=== PATIENT | female | born 2000 | race Caucasian/White ===

== ENCOUNTER 2023-12-06 19:36 | Inpatient (IN) ==
[2023-12-06 20:24] LABS: Basophils # (auto) 0.01 K/uL (0.00-0.20); Basophils % (auto) 0.1 %; Eosinophils # (auto) 0.05 K/uL (0.00-0.50); Eosinophils % (auto) 0.7 %; Hematocrit (blood only) 38.5 % (37.0-47.0); Hemoglobin 12.7 g/dl (12.0-16.0); Immature Granulocytes # (auto) 0.02 K/uL (0.01-0.20); Immature Granulocytes % (auto) 0.3 %; Lymphocytes # (auto) 0.29 K/uL (1.20-3.40); Lymphocytes % (auto) 3.8 %; Mean Corpuscular Hemoglobin 30.2 pg (25.0-34.0); Mean Corpuscular Volume 91.4 fL (80.0-100.0); Mean Platelet Volume 9.2 fL (9.4-12.4); Monocytes # (auto) 0.84 K/uL (0.11-0.59); Monocytes % (auto) 10.9 %; Neutrophils # (auto) 6.47 K/uL (1.40-6.50); Neutrophils % (auto) 84.2 %; Platelet Count 230 K/uL (130-400); RDW Coefficient of Variation 13.1 % (11.5-14.5); RDW Standard Deviation 43.4 fL (36.4-46.3); Red Blood Count 4.21 M/uL (4.20-5.40); White Blood Count 7.68 K/ul (4.8-10.8)
[2023-12-06 20:35] LABS: INR 1.1 (0.9-1.1); Partial Thromboplastin Ratio 1.1; Partial Thromboplastin Time 31 Seconds (21-31); Prothrombin Time 11.9 Seconds (9.0-12.0)
[2023-12-06] MEDS ORDERED: ACETAMINOPHEN 1,000 MG/100 ML VIAL IV STA (20:49)
[2023-12-06 20:52] LABS: Troponin I High Sensitivity < 2.3 pg/ml (0-14)
[2023-12-06 20:55] LABS: Albumin Level 4.5 gm/dl (3.4-5.0); Anion Gap 8 (3-11); Bilirubin,Total 0.3 mg/dl (0.2-1.0); Calcium 9.7 mg/dl (8.6-10.3); Carbon Dioxide 25 mmol/L (21-32); Chloride 102 mmol/L (98-107); Magnesium 1.9 mg/dl (1.7-2.4); Potassium 3.3 mmol/L (3.5-5.1); Sodium 135 mmol/L (136-145)
[2023-12-06 21:01] LABS: Alanine Aminotransferase 11 U/L (7-52); Albumin Globulin Ratio 1.4 (0.9-2); Alkaline Phosphatase 73 U/L (34-104); Aspartate Aminotransferase 15 U/L (13-39); Blood Urea Nitrogen 12 mg/dl (6-23); Creatinine Clr Calc Pharmacy 132.5 ml/min; Est GFR (African American) 129.3 ml/min; Est GFR (Non-African American) 111.6 ml/min; Globulin 3.2 gm/dl (2.5-4.0); Glucose 103 mg/dl (70-99(Fasting)); Total Protein 7.7 gm/dl (6.0-8.3)
[2023-12-06 21:13] LABS: Pregnancy Test, Serum Negative (Negative)
[2023-12-06] MEDS ORDERED: cefTRIAXone SODIUM 2,000 MG/50 ML BAG IV STA (21:15)
[2023-12-06] MEDS ORDERED: SODIUM CHLORIDE 0.9% 1,000 ML IV ONE (21:15)
--- NOTE | 2023-12-06 21:51 | Emergency Department Note ---
Impression & Plan Influenza A, Pyelonephritis ED Provider Note NAME: SULEMAN HILL AGE: 23 SEX: F : 2000 ARRIVES VIA: Walk-In INFORMANT: Patient, ED PROVIDER(S): Yolanda Ho MD CHIEF COMPLAINT: Heart racing HPI: This is a 23-year-old female with history of Haroldo-Danlos, POTS, duplicated ureters, presenting for tachycardia and fever. Patient states that she saw her cardiology yesterday for tachycardia and they increased her heart medication, midodrine. She then began having fevers today as well as headache, nausea and vomiting. Patient notes that in early October she had a stent placed in her right kidney as a result of hydronephrosis and recurrent UTIs. She seen on Saturday for the right flank pain that she currently still has and was told she has hydronephrosis as well as bladder spasms. She was given medication which helped her bladder spasm and now she does not have that pain, just right flank pain that is stable. ROS: See above HPI for pertinent positives & negatives. A total of 10 systems reviewed and were otherwise negative. PAST MEDICAL HISTORY: See Below PAST SURGICAL HISTORY: See Below FAMILY HISTORY: See Below SOCIAL HISTORY: See Below HOME MEDICATIONS: See Below ALLERGIES: See Below VITALS: See Below PHYSICAL EXAMINATION: General: Monitor shows due to pain Head: Normocephalic and atraumatic Eyes: Normal inspection, extraocular muscles intact Ear, nose, throat: Normal external exam Neck: Normal range of motion Respiratory: lungs clear to auscultation bilaterally Cardiovascular: Regular rate/rhythm, no murmur GI: Right CVA tenderness Extremities: nontender, moves all extremities Neuro: The patient awake and alert, appropriately conversive, no focal deficits, symmetric faces Skin: Warm, dry, and intact MEDICAL DECISION MAKING: This is a 23-year-old female history of Haroldo-Danlos, POTS, duplicated ureters, presenting for tachycardia and fevers. Patient slightly tachycardic with fever and stent. Will do ceftriaxone empirically as well as fluid resuscitation. Patient has been on prophylactic Keflex for multiple weeks for this stent. -Upon reevaluation. Heart rate is down from 140 down to 110s. -Patient had numerous CAT scans, 5+ in the past few months, she would prefer less radiation if possible. I do agree that at this time, patient has had stable right flank pain since previous CT at outside hospital, I am unable to locate the images unfortunately but she states it was read as hydronephrosis -Chest Xray independently interpreted by me showing no pneumothorax, focal opacity, or pleural effusions. -Otherwise patient's blood work reveals no leukocytosis or anemia, electrolytes are within normal limits (mild hypokalemia. Creatinine within normal limits. Nonelevated lactate. -Patient influenza A, likely planning her fevers and current symptoms -Unfortunate patient also has a urinalysis that is concerning for urinary tract infection -At this time is unclear whether patient's fevers from influenza or UTI/pyelonephritis. In about the precaution with patient's current stent, will admit to hospitalist for IV antibiotics and observation -Case discussed with on-call urologist, Dr. Gastelum, who agrees patient needs admission to rule out pyelonephritis/infection. Differential diagnosis: Sepsis, pyelonephritis, viral process ER treatment provided: See below Diagnostics interpreted by me: ECG: None Cardiac Monitoring: An order was placed for continuous cardiac monitoring. The monitor shows a rate of 117 with sinus tachycardia rhythm. Laboratory studies: As stated above and show below. Imaging studies: See below. Past Med/Surg History Medical History (Updated 12/07/23 @ 13:31 by Yolanda Ho MD) Bipolar disorder Recurrent urinary tract infection 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 POTS (postural orthostatic tachycardia syndrome) Surgical History (Updated 12/07/23 @ 10:04 by Lucius Gastelum MD) Status post insertion of iliac artery stent Status post cystoscopy with ureteral stent placement Social History Smoking Status: Never smoker Second Hand Exposure: No; Do You Dip or Chew Tobacco: No; Tobacco Cessation Education Requested by Patient: No Hx Alcohol Use: Yes Hx Substance Use: No Preferred Language: Chadian Communication Ability: Effective 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 Beliefs That Will Affect Care: None Current Living Situation: Other Current Living Situation Comment: sig other Other Information That Helps Us Care for You: No Feels Safe at Home: Yes Safety Concerns: Feels Safe At This Time Assistive Devices: None Allergies Allergies Allergy/AdvReac Type Severity Reaction Status Date / Time meperidine [From Demerol] Allergy Intermediate HIVES/RASH Verified 12/06/23 22:16 Home Meds Home Medications Medication Instructions Recorded Confirmed apixaban 5 mg tablet (Eliquis) 5 mg PO BID 08/18/23 12/06/23 aripiprazole 10 mg tablet (Abilify) 10 mg PO DAILY 08/18/23 12/06/23 aspirin 81 mg tablet,delayed 81 mg PO BID 08/18/23 12/06/23 release bupropion HCl 450 mg 24 hr tablet, 450 mg PO QAM 08/18/23 12/06/23 extended release guanfacine 2 mg tablet 3 mg PO QAM 08/18/23 12/06/23 ivabradine 5 mg tablet (Corlanor) 2.5 mg PO AMPM 08/18/23 12/06/23 midodrine 5 mg tablet 10 mg PO QAM 08/18/23 12/06/23 quetiapine 100 mg tablet (Seroquel) 100 mg PO HS 08/18/23 12/06/23 sertraline 100 mg tablet 100 mg PO HS 08/18/23 12/06/23 oxybutynin chloride 5 mg tablet 5 mg PO DIRECTED PRN Bladder 12/06/23 12/06/23 Spasms tamsulosin 0.4 mg capsule 0.4 mg PO HS 12/06/23 12/06/23 Previous Rx's Medication Instructions Recorded ondansetron 4 mg disintegrating 4 mg PO Q6H PRN nausea and 09/16/23 tablet vomiting #14 tabs Results & Data (ED) Vital Signs Vital Signs - 24 hr 12/06/23 19:40 12/06/23 22:20 12/06/23 22:22 Temperature 38.1 C H Temperature Source Oral Pulse Rate 140 H 116 H 117 H Pulse Rate from SpO2 Sensor Pulse Rhythm Regular Pulse Strength Normal Respiratory Rate 20 24 Respiratory Effort / Characteristics Non-Labored Spontaneous Respiratory Depth Normal Respiratory Pattern Regular Blood Pressure 133/75 Blood Pressure Mean 94 Blood Pressure Position Sitting Pulse Oximetry 97 Oxygen Delivery Method Room Air Sepsis Recent Fever Within 48 Hours Yes Sepsis New/Unexplained Change in Mental Status N/A Sepsis Action Taken by Nursing No Action Required 12/06/23 22:30 12/06/23 23:00 12/06/23 23:17 Temperature Temperature Source Pulse Rate 117 H 111 H Pulse Rate from SpO2 Sensor 119 H 112 H Pulse Rhythm Pulse Strength Respiratory Rate 21 22 Respiratory Effort / Characteristics Respiratory Depth Respiratory Pattern Blood Pressure 125/78 Blood Pressure Mean 93 Blood Pressure Position Pulse Oximetry 98 99 99 Oxygen Delivery Method Room Air Sepsis Recent Fever Within 48 Hours Sepsis New/Unexplained Change in Mental Status Sepsis Action Taken by Nursing 12/06/23 23:30 12/06/23 23:37 12/07/23 00:00 Temperature 39.2 C H Temperature Source Oral Pulse Rate 113 H 115 H Pulse Rate from SpO2 Sensor Pulse Rhythm Pulse Strength Respiratory Rate 21 19 Respiratory Effort / Characteristics Respiratory Depth Respiratory Pattern Blood Pressure Blood Pressure Mean Blood Pressure Position Pulse Oximetry 100 99 Oxygen Delivery Method Room Air Room Air Sepsis Recent Fever Within 48 Hours Sepsis New/Unexplained Change in Mental Status Sepsis Action Taken by Nursing 12/07/23 00:07 12/07/23 00:30 12/07/23 01:00 Temperature Temperature Source Pulse Rate 114 H 107 H 106 H Pulse Rate from SpO2 Sensor Pulse Rhythm Pulse Strength Respiratory Rate 18 17 18 Respiratory Effort / Characteristics Respiratory Depth Respiratory Pattern Blood Pressure 122/75 123/72 116/74 Blood Pressure Mean 90 89 88 Blood Pressure Position Pulse Oximetry 99 96 96 Oxygen Delivery Method Room Air Room Air Room Air Sepsis Recent Fever Within 48 Hours Sepsis New/Unexplained Change in Mental Status Sepsis Action Taken by Nursing 12/07/23 01:00 12/07/23 01:30 12/07/23 02:00 Temperature 37.0 C Temperature Source Oral Pulse Rate 112 H 104 H Pulse Rate from SpO2 Sensor Pulse Rhythm Pulse Strength Respiratory Rate 19 18 Respiratory Effort / Characteristics Respiratory Depth Respiratory Pattern Blood Pressure 97/53 L 90/62 L Blood Pressure Mean 67 71 Blood Pressure Position Pulse Oximetry 96 96 Oxygen Delivery Method Room Air Room Air Sepsis Recent Fever Within 48 Hours Sepsis New/Unexplained Change in Mental Status Sepsis Action Taken by Nursing Laboratory Data 12/06/23 19:55 12/07/23 08:23 Lab Results 12/06/23 12/06/23 12/06/23 Range/Units 19:40 19:44 19:55 WBC 7.68 (4.8-10.8) K/ul RBC 4.21 (4.20-5.40) M/uL Hgb 12.7 (12.0-16.0) g/dl Hct 38.5 (37.0-47.0) % MCV 91.4 (80.0-100.0) fL MCH 30.2 (25.0-34.0) pg MCHC 33.0 (32.0-36.0) g/dL RDW Std Deviation 43.4 (36.4-46.3) fL RDW Coeff of Cher 13.1 (11.5-14.5) % Plt Count 230 (130-400) K/uL MPV 9.2 L (9.4-12.4) fL Immature Gran % (Auto) 0.3 % Neut % (Auto) 84.2 % Lymph % (Auto) 3.8 % Barber % (Auto) 10.9 % Eos % (Auto) 0.7 % Baso % (Auto) 0.1 % Neut # (Auto) 6.47 (1.40-6.50) K/uL Lymph # (Auto) 0.29 L (1.20-3.40) K/uL Barber # (Auto) 0.84 H (0.11-0.59) K/uL Eos # (Auto) 0.05 (0.00-0.50) K/uL Baso # (Auto) 0.01 (0.00-0.20) K/uL Immature Gran # (Auto) 0.02 (0.01-0.20) K/uL PT 11.9 (9.0-12.0) Seconds INR 1.1 (0.9-1.1) APTT 31 (21-31) Seconds PTT Ratio 1.1 Sodium 135 L (136-145) mmol/L Potassium 3.3 L (3.5-5.1) mmol/L Chloride 102 (98-107) mmol/L Carbon Dioxide 25 (21-32) mmol/L Anion Gap 8 (3-11) BUN 12 (6-23) mg/dl Creatinine 0.75 (0.6-1.2) mg/dl Est Cr Clr Drug Dosing 132.5 ml/min Est GFR ( Amer) 129.3 ml/min Est GFR (Non-Af Amer) 111.6 ml/min BUN/Creatinine Ratio 16.0 (10-20) Glucose 103 H (70-99(Fasting)) mg/dl Lactate (0.4-2.0) mmol/L Calcium 9.7 (8.6-10.3) mg/dl Magnesium 1.9 (1.7-2.4) mg/dl Total Bilirubin 0.3 (0.2-1.0) mg/dl AST 15 (13-39) U/L ALT 11 (7-52) U/L Alkaline Phosphatase 73 (34-104) U/L Troponin I High Sens < 2.3 (0-14) pg/ml Total Protein 7.7 (6.0-8.3) gm/dl Albumin 4.5 (3.4-5.0) gm/dl Globulin 3.2 (2.5-4.0) gm/dl Albumin/Globulin Ratio 1.4 (0.9-2) Procalcitonin 0.05 (0-0.5) ng/ml HCG, Qual Negative (Negative) Urine Color Urine Appearance (Clear) Urine pH (4.5-7.5) Ur Specific [place] (1.000-1.030) Urine Protein (Negative) Urine Glucose (UA) (Negative) Urine Ketones (Negative) Urine Blood (Negative) Urine Nitrite (Negative) Urine Bilirubin (Negative) Urine Urobilinogen (Negative) Ur Leukocyte Esterase (Negative) Urine RBC (0-4) /hpf Urine WBC (0-5) /hpf Ur Epithelial Cells (0-5) /lpf Urine Bacteria (Negative) Hyaline Casts (0-5) /lpf Nasal Influ A H1 2008 PCR DETECTED A* (NotDetected) Adenovirus (PCR) Not Detected (NotDetected) B. pertussis DNA (PCR) Not Detected (NotDetected) B.parapertussis DNA PCR Not Detected (NotDetected) C. pneumoniae DNA (PCR) Not Detected (NotDetected) Coronavirus OC43 (PCR) Not Detected (NotDetected) Coronavirus HKU1 (PCR) Not Detected (NotDetected) Coronavirus 229E (PCR) Not Detected (NotDetected) SARS-CoV-2 (PCR) Not Detected (NotDetected) Coronavirus NL63 (PCR) Not Detected (NotDetected) Human Metapneumovir PCR Not Detected (NotDetected) Influenza Type B (PCR) Not Detected (NotDetected) M. pneumoniae (PCR) Not Detected (NotDetected) Parainfluenza 1 (PCR) Not Detected (NotDetected) Parainfluenza 2 (PCR) Not Detected (NotDetected) Parainfluenza 3 (PCR) Not Detected (NotDetected) Parainfluenza 4 (PCR) Not Detected (NotDetected) RSV (PCR) Not Detected (NotDetected) Entero/Rhino (PCR) Not Detected (NotDetected) 12/06/23 12/06/23 Range/Units 21:30 21:38 WBC (4.8-10.8) K/ul RBC (4.20-5.40) M/uL Hgb (12.0-16.0) g/dl Hct (37.0-47.0) % MCV (80.0-100.0) fL MCH (25.0-34.0) pg MCHC (32.0-36.0) g/dL RDW Std Deviation (36.4-46.3) fL RDW Coeff of Cher (11.5-14.5) % Plt Count (130-400) K/uL MPV (9.4-12.4) fL Immature Gran % (Auto) % Neut % (Auto) % Lymph % (Auto) % Barber % (Auto) % Eos % (Auto) % Baso % (Auto) % Neut # (Auto) (1.40-6.50) K/uL Lymph # (Auto) (1.20-3.40) K/uL [place] # (Auto) (0.11-0.59) K/uL Eos # (Auto) (0.00-0.50) K/uL Baso # (Auto) (0.00-0.20) K/uL Immature Gran # (Auto) (0.01-0.20) K/uL PT (9.0-12.0) Seconds INR (0.9-1.1) APTT (21-31) Seconds PTT Ratio Sodium (136-145) mmol/L Potassium (3.5-5.1) mmol/L Chloride (98-107) mmol/L Carbon Dioxide (21-32) mmol/L Anion Gap (3-11) BUN (6-23) mg/dl Creatinine (0.6-1.2) mg/dl Est Cr Clr Drug Dosing ml/min Est GFR ( Amer) ml/min Est GFR (Non-Af Amer) ml/min BUN/Creatinine Ratio (10-20) Glucose (70-99(Fasting)) mg/dl Lactate 1.1 (0.4-2.0) mmol/L Calcium (8.6-10.3) mg/dl Magnesium (1.7-2.4) mg/dl Total Bilirubin (0.2-1.0) mg/dl AST (13-39) U/L ALT (7-52) U/L Alkaline Phosphatase (34-104) U/L Troponin I High Sens (0-14) pg/ml Total Protein (6.0-8.3) gm/dl Albumin (3.4-5.0) gm/dl Globulin (2.5-4.0) gm/dl Albumin/Globulin Ratio (0.9-2) Procalcitonin (0-0.5) ng/ml HCG, Qual (Negative) Urine Color [place] Urine Appearance Turbid A (Clear) Urine pH 6.5 (4.5-7.5) Ur Specific [place] 1.026 (1.000-1.030) Urine Protein 2+ H (Negative) Urine Glucose (UA) Negative (Negative) Urine Ketones 1+ H (Negative) Urine Blood 3+ H (Negative) Urine Nitrite Negative (Negative) Urine Bilirubin 1+ H (Negative) Urine Urobilinogen Negative (Negative) Ur Leukocyte Esterase 1+ H (Negative) Urine RBC >30 H (0-4) /hpf Urine WBC 10-30 H (0-5) /hpf Ur Epithelial Cells 0-5 (0-5) /lpf Urine Bacteria 1+ H (Negative) Hyaline Casts 0-5 (0-5) /lpf Nasal Influ A H1 2009 PCR (NotDetected) Adenovirus (PCR) (NotDetected) B. pertussis DNA (PCR) (NotDetected) B.parapertussis DNA PCR (NotDetected) C. pneumoniae DNA (PCR) (NotDetected) Coronavirus OC43 (PCR) (NotDetected) Coronavirus HKU1 (PCR) (NotDetected) Coronavirus 229E (PCR) (NotDetected) SARS-CoV-2 (PCR) (NotDetected) Coronavirus NL63 (PCR) (NotDetected) Human Metapneumovir PCR (NotDetected) Influenza Type B (PCR) (NotDetected) M. pneumoniae (PCR) (NotDetected) Parainfluenza 1 (PCR) (NotDetected) Parainfluenza 2 (PCR) (NotDetected) Parainfluenza 3 (PCR) (NotDetected) Parainfluenza 4 (PCR) (NotDetected) RSV (PCR) (NotDetected) Entero/Rhino (PCR) (NotDetected) Administered Medications Acetaminophen (Acetaminophen 325 Mg Tab) 650 mg PO Q4H PRN PRN Reason: Pain or Fever Stop: 01/06/24 05:29 Last Admin: 12/07/23 12:38 Dose: 650 mg Documented By: Admin: 12/07/23 07:43 Dose: 650 mg Documented By: OSVALDO Apixaban (Apixaban 5 Mg Tablet) 5 mg PO BID [facility] Stop: 01/06/24 08:59 Last Admin: 12/07/23 08:43 Dose: 5 mg Documented By: OSVALDO Aripiprazole (Aripiprazole 10 Mg Tab) 10 mg PO DAILY [facility] Stop: 01/06/24 08:59 Last Admin: 12/07/23 08:42 Dose: 10 mg Documented By: OSVALDO Aspirin (Aspirin 81 Mg Ectab) 81 mg PO BID [facility] Stop: 01/06/24 08:59 Last Admin: 12/07/23 08:43 Dose: 81 mg Documented By: OSVALDO Bupropion HCl (Bupropion Xl 150 Mg Tabcr) [facility] [place]: 01/06/24 08:59 Last Admin: 12/07/23 08:42 Dose: 450 mg Documented By: OSVALDO Guanfacine HCl (Guanfacine Hcl 1 Mg Tab) 3 mg PO QAM [facility] Stop: 01/06/24 08:59 Last Admin: 12/07/23 08:41 Dose: 3 mg Documented By: OSVALDO Sodium Chloride (Nss) 1,000 mls @ 125 mls/hr IV .Q8H [facility] Stop: 01/06/24 11:44 Last Admin: 12/07/23 12:41 Dose: 125 mls/hr Documented By: OSVALDO Midodrine (Midodrine Hcl 10 Mg Tab) 10 mg PO QAM [facility] Stop: 01/06/24 08:59 Last Admin: 12/07/23 08:42 Dose: 10 mg Documented By: OSVALDO Miscellaneous (Order Awaiting Action: Ivabradine [Corlanor] 5 Mg Tablet) 1 each N/A QS [facility] Stop: 01/06/24 07:59 Last Admin: 12/07/23 10:37 Dose: Not Given Documented By: OSVALDO Oseltamivir Phosphate (Oseltamivir Phosphate 75 Mg Cap) 75 mg PO BID [facility] Stop: 12/11/23 09:01 Last Admin: 12/07/23 12:38 Dose: 75 mg Documented By: OSVALDO Oxybutynin Chloride (Oxybutynin Chloride 5 Mg Tab) 5 mg PO DAILY PRN PRN Reason: Bladder Spasms Stop: 01/06/24 05:29 Last Admin: 12/07/23 12:35 Dose: 5 mg Documented By: Admin: 12/07/23 08:42 Dose: 5 mg Documented By: OSVALDO Discontinued Medications Acetaminophen (Acetaminophen 500 Mg Tab) 1,000 mg PO NOW STA Stop: 12/06/23 22:42 Last Admin: 12/06/23 23:26 Dose: 1,000 mg Documented By: WAQAR Sodium Chloride (Nss) 1,000 mls @ 999 mls/hr IV .Q1H1M ONE Stop: 12/06/23 22:15 Last Infusion: 12/06/23 23:22 Dose: Infused Documented By: Admin: 12/06/23 22:28 Dose: 999 mls/hr Documented By: STU Ceftriaxone Sodium (Rocephin) 2,000 mg in 50 mls @ 100 mls/hr IV NOW STA Stop: 12/06/23 21:44 Last Infusion: 12/06/23 23:04 Dose: Infused Documented By: Admin: 12/06/23 22:28 Dose: 100 mls/hr Documented By: STU Potassium Chloride/Sodium Chloride (Normal Saline W/20 Meq Kcl) 20 meq in 1,000 mls @ 150 mls/hr IV .Q6H40M [facility]; Protocol Stop: 12/07/23 08:54 Last Infusion: 12/07/23 10:46 Dose: Infused Documented By: Admin: 12/07/23 03:24 Dose: 150 mls/hr Documented By: WAQAR Magnesium Sulfate/Dextrose (Magnesium Sulfate / D5w) 1 gm in 100 mls @ 50 mls/hr IV ONE ONE Stop: 12/07/23 04:59 Last Infusion: 12/07/23 05:41 Dose: Infused Documented By: Admin: 12/07/23 03:24 Dose: 50 mls/hr Documented By: WAQAR Sodium Chloride (Nss) 500 mls @ 999 mls/hr IV .Q31M ONE Stop: 12/07/23 08:19 Last Infusion: 12/07/23 10:47 Dose: Infused Documented By: Admin: 12/07/23 08:39 Dose: 999 mls/hr Documented By: OSVALDO Ondansetron HCl (Ondansetron Inj 2 Mg/Ml 2 Ml Vial) 4 mg IV NOW STA Stop: 12/07/23 00:19 Last Admin: 12/07/23 00:21 Dose: 4 mg Documented By: WAQAR Oseltamivir Phosphate (Oseltamivir Phosphate 75 Mg Cap) 75 mg PO NOW STA; Protocol Stop: 12/07/23 02:27 Last Admin: 12/07/23 03:24 Dose: 75 mg Documented By: WAQAR Imaging Data Radiologist's Impression: Chest X-Ray 12/06/23 19:44 XR chest 1V not portable CLINICAL HISTORY: Sepsis TECHNIQUE: Single frontal radiograph of the chest was obtained. Comparison: None available at the time of this dictation. FINDINGS: No lines and tubes are seen. The cardiomediastinal silhouette is normal. The lungs are clear. No evidence of pleural effusion or pneumothorax. IMPRESSION: No acute abnormalities and in particular no radiographic evidence of pneumonia. ACT 112: Negative or not required by law. Electronically signed by: Ricci Langley M.D. 12/07/2023 9:13 AM Discharge Plan Visit Data Chief Complaint: Tachycardia Stated Complaint: HEADACHE, VOMITING, FEVER 103, TACHYCARDIA ED Provider: Yolanda Ho Discharge Problem: Influenza A, Pyelonephritis Patient Disposition: Home - Self-Care Discharge Instructions Interventions: ED Discharge Assessment Last Done: 12/07/23 05:30
[2023-12-06 21:55] LABS: Adenovirus PCR Not Detected (NotDetected); Bordetella parapertussis PCR Not Detected (NotDetected); Bordetella pertussis PCR Not Detected (NotDetected); Chlamydia pneumoniae PCR Not Detected (NotDetected); Coronavirus 229E PCR Not Detected (NotDetected); Coronavirus CoV-2 (COVID19)PCR Not Detected (NotDetected); Coronavirus HKU1 PCR Not Detected (NotDetected); Coronavirus NL63 PCR Not Detected (NotDetected); Coronavirus OC43PCR Not Detected (NotDetected); Human Metapneumovirus PCR Not Detected (NotDetected); Influenza B PCR Not Detected (NotDetected); Mycoplasma pneumoniae PCR Not Detected (NotDetected); Parainfluenza Virus 1 PCR Not Detected (NotDetected); Parainfluenza Virus 2 PCR Not Detected (NotDetected); Parainfluenza Virus 3 PCR Not Detected (NotDetected); Parainfluenza Virus 4 PCR Not Detected (NotDetected); Respiratory Syncytial VirusPCR Not Detected (NotDetected); Rhinovirus/Enterovirus PCR Not Detected (NotDetected)
[2023-12-06 22:26] LABS: Influenza A (H1 2009) PCR DETECTED (NotDetected)
[2023-12-06 22:28] LABS: Appearance Urine Turbid (Clear); Blood Urine 3+ (Negative); Color Urine Orange; Glucose Urine UA Negative (Negative); Ketones Urine 1+ (Negative); Leukocyte Esterase Urine 1+ (Negative); Nitrite Urine Negative (Negative); Protein Urine 2+ (Negative); Specific Gravity Urine 1.026 (1.000-1.030); Urobilinogen Urine Negative (Negative); pH Urine 6.5 (4.5-7.5)
[2023-12-06 22:29] LABS: Bilirubin Urine 1+ (Negative)
[2023-12-06 22:41] LABS: Bacteria Urine 1+ (Negative); Epithelial Cell Urine 0-5 /lpf (0-5); Hyaline Casts Urine 0-5 /lpf (0-5); RBC Urine >30 /hpf (0-4)
[2023-12-06] MEDS ORDERED: ACETAMINOPHEN 500 MG TAB PO STA (22:41)
[2023-12-07] MEDS ORDERED: ONDANSETRON INJ 2 MG/ML 2 ML VIAL IV STA (00:18)
--- OUTSIDE RECORDS SUMMARY | 2023-12-07 00:28 | External Medical Summary | Summary of Care ---
Author Name Unknown Organization [facility] Address [address] [place] [address] Phone [phone] Care Team Providers Care Document Manager Name Role Phone Karie Valdovinos MD Primary Care Provider Reason for Visit * Reason Onset Date Comments Sore Throat Sore Throat 12/06/2023 Encounter Details Date Type Department Care Team (Latest Contact Info) Description 12/06/2023 3:00 PM EST Convenient Care Visit [facility] [address] [place] [address] Charles Laughlin PA-C [address] [place] [address] Acute sore throat* Allergies Active Allergy Reactions Criticality Noted Date Comments Meperidine Hives,Rash High 07/12/2023 documented as of this encounter (statuses as of 12/06/2023) Medications Medication Sig Dispensed Refills Start Date End Date Status Eliquis 5 MG Oral Tablet Take 1 Tablet by mouth in the morning and 1 Tablet before bedtime. 0 07/05/2023 Active Ondansetron 4 MG Oral Tablet Disintegrating (Zofran) Place 1 Tablet on tongue every 8 hours as needed. 0 05/24/2023 Active Cephalexin 250 MG Oral Capsule (Keflex) Take 1 Capsule by mouth in the morning. For UTI suppression. 30 Capsule 2 08/09/2023 Active Aspirin 81 MG Oral Tablet Delayed Release (Aspirin 81) Take 1 Tablet by mouth in the morning and 1 Tablet before bedtime. 0 Active Midodrine HCl 5 MG Oral Tablet (Proamatine) Take 1 Tablet by mouth in the morning. 90 Tablet 3 09/20/2023 Active ARIPiprazole 10 MG Oral Tablet (Abilify) Take 1 Tablet by mouth in the morning. 30 Tablet 2 11/13/2023 Active buPROPion HCl ER (XL) 300 MG Oral Tablet Extended Release 24 Hour (Wellbutrin XL) Take 1 Tablet by mouth in the morning. 30 Tablet 2 11/13/2023 Active buPROPion HCl ER (XL) 150 MG Oral Tablet Extended Release 24 Hour (Wellbutrin XL) Take 1 Tablet by mouth in the morning. 30 Tablet 2 11/13/2023 Active QUEtiapine Fumarate 100 MG Oral Tablet (SEROquel) Quetiapine (seroquel) 100mg tablet, take one tablet every night. 30 Tablet 2 11/13/2023 Active QUEtiapine Fumarate 50 MG Oral Tablet (SEROquel) TAKE 1 TABLET BY MOUTH AT BEDTIME NEEDED FOR SLEEP OR MOOD WITH 100 MG TABLET 30 Tablet 2 11/13/2023 Active Sertraline HCl 25 MG Oral Tablet (Zoloft) Take 1 Tablet by mouth at bedtime. 30 Tablet 2 11/13/2023 Active guanFACINE HCl ER 3 MG Oral Tablet Extended Release 24 Hour Take 1 Tablet by mouth every morning. 30 Tablet 2 11/13/2023 Active Tamsulosin HCl 0.4 MG Oral Capsule (Flomax) Take 1 Capsule by mouth in the morning. 0 Active oxyBUTYnin Chloride 5 MG Oral Tablet (Ditropan) Take 1 Tablet by mouth as needed. 0 12/03/2023 Active Corlanor 5 MG Oral Tablet Take 0.5 Tablets by mouth in the morning and 0.5 Tablets before bedtime. 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 Bipolar 1 disorder 07/16/2023 JILL (generalized anxiety disorder) 07/16/2023 Hydronephrosis 07/12/2023 Recurrent UTI (urinary tract infection) 07/12/20 POTS (postural orthostatic tachycardia syndrome) 07/12/2023 documented as of this encounter (statuses as of 12/06/2023) Immunizations Name Administration Dates Next Due Seasonal Influenza Virus Vac cine, Unspecified Formulation 08/30/2023 documented as of this encounter Social History Tobacco Use Types Packs/Day Years Used Date Smoking Tobacco: Never Smokeless Tobacco: Never Tobacco Cessation:Counseling Given: Not Answered Alcohol Use Standard Drinks/Week Comments Yes 0 (1 standard drink = 0.6 oz pur e alcohol) On occasion Hunger Vital Sign Answer Date Recorded Within the past 12 months, y ou worried that your food would run out before you got the money to buy more. Never true 07/08/20 23 Within the past 12 months, t he food you bought just didn't last and you didn't have money to get more. Never true 07/08/2023 Sex and Gender Information Value Date Recorded Sex Assigned at Female 07/08/2023 6:24 PM EDT Gender Identity Female 07/08/2023 6:24 PM EDT Sexual Orientation Lesbian 07/08/2023 6: 24 PM EDT Job Start Date Occupation Industry Not on file Not on file Not on file documented as of this encounter Last Filed Vital Signs Vital Sign Reading Time Taken Comments Blood Pressure 110/70 12/06/2023 3:20 PM EST Pulse 125 12/06/2023 3:20 PM EST Temperature 38 C (100.4 F) 12/06/2023 3:20 PM EST Respiratory Rate 16 12/06/2023 3:20 PM EST Oxygen Saturation 99% 12/06/2023 3:20 PM EST Inhaled Oxygen Concentration - - Weight 87.6 kg (193 lb 3.2 oz) 12/06/2023 3:20 P M EST Height - - Body Mass Index 29.38 11/13/2023 8:53 AM EST documented in this encounter Patient Instructions * Patient Instructions* Charles Laughlin PA-C - 12/06/2023 3:41 PM EST Can use tylenol/ibuprofen as needed for pain. Over the counter (OCT) lozenges and chloraseptic throat sprays can be helpful as well. If diabetes or elevated blood sugar is not a problem, can use honey as well to help sooth the throat. Hot tea and warm beverages can be very soothing on the throat. Warm salt water gargles as needed several times a day. Drink plenty of fluids and get plenty of rest. If your sore throat is accompanied by post-nasal drip, consider nasal sprays and/or OTC non-drowsy antihistamines like Claritin, Zyrtec, or Allegry as well and consider using a cool mist vaporizer. If you had a strep test and your rapid test was negative, we will contact you if your PCR ("the send out") was positive and send antibiotics. If you do not hear from us, you can assume that your PCR was also negative, confirming your rapid test. Return or follow-up with PCP if no improvement or worsening symptoms over the next week. documented in this encounter Progress Notes * Charles Laughlin PA-C - 12/06/2023 3:34 PM EST Nursing Notes: Heena Nixon LPN 12/06/23 1524 Signed 23 yo female presents with headache, sore throat, fever x 2 days. Took tylenol Nolvia Abdullahi is a 23 year old female who presents with sore throat symptoms. Patient was accompanied by Self. HPI: Severity of Symptoms: Moderate Modifying Factors (what was done since onset of Symptoms): tylenol Timing (How often does it occur): constant Quality (Feels Like): hurts to swallow Other associated Signs and Symptoms: st, young, fever, malaise, fatigue. Denies sob, wheezing, cp, palp, n/v/d/c, sinus, cough. ROS: See HPI HISTORY: No past medical history on file. No past surgical history on file. Social History Tobacco Use Smoking status: Never Smokeless tobacco: Never Substance Use Topics Alcohol use: Yes Comment: On occasion Vaping/E-Cigarette Use Vaping/E-Cigarette Use Never User Vaping/E-Cigarette Substances Nicotine No Other No Flavoring No THC No Cannabidiol (CBD) No Vaping/E-Cigarette Devices Disposable No Pre-filled or Refillable Cartridge No Refillable Tank No Pre-filled Pod No Current Outpatient Medications Medication Sig Dispense Refill Eliquis 5 MG Oral Tablet Take 1 Tablet by mouth in the morning and 1 Tablet before bedtime. Ondansetron 4 MG Oral Tablet Disintegrating (Zofran) Place 1 Tablet on tongue every 8 hours as needed. Cephalexin 250 MG Oral Capsule (Keflex) Take 1 Capsule by mouth in the morning. For UTI suppression. 30 Capsule 2 Aspirin 81 MG Oral Tablet Delayed Release (Aspirin 81) Take 1 Tablet by mouth in the morning and 1 Tablet before bedtime. Midodrine HCl 5 MG Oral Tablet (Proamatine) Take 1 Tablet by mouth in the morning. 90 Tablet 3 ARIPiprazole 10 MG Oral Tablet (Abilify) Take 1 Tablet by mouth in the morning. 30 Tablet 2 buPROPion HCl ER (XL) 300 MG Oral Tablet Extended Release 24 Hour (Wellbutrin XL) Take 1 Tablet by mouth in the morning. 30 Tablet 2 buPROPion HCl ER (XL) 150 MG Oral Tablet Extended Release 24 Hour (Wellbutrin XL) Take 1 Tablet by mouth in the morning. 30 Tablet 2 QUEtiapine Fumarate 100 MG Oral Tablet (SEROquel) Quetiapine (seroquel) 100mg tablet, take one tablet every night. 30 Tablet 2 QUEtiapine Fumarate 50 MG Oral Tablet (SEROquel) TAKE 1 TABLET BY MOUTH AT BEDTIME NEEDED FOR SLEEP OR MOOD WITH 100 MG TABLET 30 Tablet 2 Sertraline HCl 25 MG Oral Tablet (Zoloft) Take 1 Tablet by mouth at bedtime. 30 Tablet 2 guanFACINE HCl ER 3 MG Oral Tablet Extended Release 24 Hour Take 1 Tablet by mouth every morning. 30 Tablet 2 Tamsulosin HCl 0.4 MG Oral Capsule (Flomax) Take 1 Capsule by mouth in the morning. oxyBUTYnin Chloride 5 MG Oral Tablet (Ditropan) Take 1 Tablet by mouth as needed. Corlanor 5 MG Oral Tablet Take 0.5 Tablets by mouth in the morning and 0.5 Tablets before bedtime. 90 Tablet 3 No current facility-administered medications for this visit. Review of patient's allergies indicates: Allergen Reactions Demerol Hcl [Meperidine] Hives and Rash No family history on file. OBJECTIVE: BP 110/70 | Pulse 125 | Temp 38 C (100.4 F) (Tympanic) | Resp 16 | Wt 87.6 kg (193 lb 3.2 oz) |SpO2 99% | No | BMI 29.38 kg/m | BSA 2.05 m Wt Readings from Last 1 Encounters: 12/06/23 87.6 kg (193 lb 3.2 oz) General appearance: awake, alert, no apparent distress HEENT: perrl and eomi tms - clear, normal light reflex, no erythema + red and irritated pharynx No sinus tenderness or facial pain to percussion No turbinate engorgement or discharge Neck: normal, supple, no adenopathy Respiratory: clear to auscultation, no rhonchi, no wheezes, and no crackles Heart: regular rhythm, no murmurs , no rubs, no gallops, and +tachycardia Skin: skin color, texture, turgor are normal, no rashes or significant lesions Results for orders placed or performed in visit on 11/13/23 COMPREHENSIVE METABOLIC PANEL Result Value Ref Range BUN 16 6 - 20 mg/dL Creatinine 0.8 0.5 - 1.0 mg/dL Estimated Glomerular Filtration Rate >90 >=60 mL/min Sodium 140 135 - 146 mmol/L Potassium 4.2 3.5 - 5.1 mmol/L Chloride 104 98 - 107 mmol/L CO2 27 22 - 32 mmol/L Anion Gap 9 7 - 15 mmol/L Glucose 94 70 - 120 mg/dL Albumin 4.6 3.8 - 5.0 g/dL AST 16 10 - 35 U/L Alkaline Phosphatase 77 35 - 130 U/L Bilirubin, Total 0.3 <=1.2 mg/dL Calcium 9.7 8.4 - 10.2 mg/dL Protein 7.1 6.0 - 8.3 g/dL ALT 14 10 - 35 U/L TSH WITH FREE T4 IF INDICATED Result Value Ref Range TSH 2.46 0.27 - 4.20 uIU/mL TRYPTASE Result Value Ref Range Tryptase 4.6 <11.0 mcg/L Patient Instructions Can use tylenol/ibuprofen as needed for pain. Over the counter (OCT) lozenges and chloraseptic throat sprays can be helpful as well. If diabetes or elevated blood sugar is not a problem, can use honey as well to help sooth the throat. Hot tea and warm beverages can be very soothing on the throat. Warm salt water gargles as needed several times a day. Drink plenty of fluids and get plenty of rest. If your sore throat is accompanied by post-nasal drip, consider nasal sprays and/or OTC non-drowsy antihistamines like Claritin, Zyrtec, or Allegry as well and consider using a cool mist vaporizer. If you had a strep test and your rapid test was negative, we will contact you if your PCR ("the send out") was positive and send antibiotics. If you do not hear from us, you can assume that your PCR was also negative, confirming your rapid test. Return or follow-up with PCP if no improvement or worsening symptoms over the next week. Assessment: Acute sore throat (Primary) - STREP A SCREEN, POINT OF CARE (ENTER/EDIT) - GROUP A STREP PCR - INFLUENZA A/B RSV SARS-COV2,PCR Rapid strep neg Likely viral Will follow swabs Patient goals for plan of care were discussed Charles Laughlin PA-C [facility] [address] [facility] [address] documented in this encounter Nursing Notes * Heena Nixon LPN - 12/06/2023 3:21 PM EST 23 yo female presents with headache, sore throat, fever x 2 days. Took tylenol documented in this encounter Plan of Treatment Upcoming Encounters Date Type Department Care Team (Late st Contact Info) Description 01/03/2024 7:15 AM EST Cardiac Studies Cardiac Studies, [facility] [address] [facility] [place] [address] 01/15/2024 2:30 PM EST Telemedicine Psychiatry, [place] [address] [place] [address] Olena Padilla CRNP [address] [place] [address] 01/17/2024 8:30 AM EST Office Visit Allergy/Immunology [facility] [address] [place] [address] Terrie Julio PA-C [address] [facility] [address] [place], [place] [address] 05/12/2024 8:00 AM EDT Office Visit [facility] [address] [facility] [place] [address] Karie Valdovinos MD [address] [facility] [place] [address] 07/14/2024 1:00 PM EDT Office Visit [facility] [address] [facility] [place] [address] Karie Valdovinos MD [address] [facility] [address] [place], [place] [address] Pending Results Name Type Priority Associated Diagnoses Date /Time GROUP A STREP PCR Lab STAT Acute sore throat 12/06/2023 4:34 PM EST INFLUENZA A/B RSV SARS-COV2,PCR Lab STAT Acute sore throat 12/06/2023 3:50 PM EST Scheduled Orders Name Type Priority Associated Diagnoses Orde r Schedule STREP A SCREEN, POINT OF CARE (ENTER/EDIT) Point of Care Testing Routine Acute sore throat Ordered: 12/06/2023 Health Maintenance Due Date Last Done Comments Hepatitis B (1 of 3 - 3-dose series) 1999 GARDASIL-HPV IMMUNIZATION SE ANA (1 - 2-dose series) 2010 Depression Screening 2011 Gonorrhea / Chlamydia Screen 2014 HIV Screening 2014 Hepatitis C Screening 2017 DTaP,Tdap,and Td Vaccines (1 - Tdap) 2018 Pap Smear 02/29/2020 COVID-19 Vaccine Completed 08/30/2023 Influenza Vaccine (FLU shot) Completed 08/30/2023 MENINGOCOCCAL (MENACTRA/MENVEO) Aged Out No longer eligible based on patient's age to complete this topic Pneumococcal Vaccine: Pediat rics (0 to 5 Years) and At-Risk Patients (6 to 64 Years) Aged Out No longer eligi ble based on patient's age to complete this topic documented as of this encounter Medical Devices Not on filedocumented as of this encounter Visit Diagnoses Diagnosis Acute sore throat- Primary documented in this encounter Care Teams Document Manager Relationship Specialty Start Date End Date Karie Valdovinos MD [address] [facility] [place] [address] PCP - General Family Medicine 07/12/23 documented as of this encounter
--- OUTSIDE RECORDS SUMMARY | 2023-12-07 00:29 | External Medical Summary | Summary of Care ---
Author Name Unknown Organization [facility] Address [address] [place] [address] Phone [phone] Care Team Providers Care Molded Grid And Parts Inspector Name Role Phone Karie Valdovinos MD Primary Care Provider Reason for Visit * Reason Onset Date Comments Sore Throat Sore Throat 12/06/2023 Encounter Details Date Type Department Care Team (Latest Contact Info) Description 12/06/2023 3:00 PM EST Convenient Care Visit [facility] [address] [place] [address] Charles Laughlin PA-C [address] [place] [address] Acute sore throat* Allergies Active Allergy Reactions [...] of care were discussed Charles Laughlin PA-C [facility] [address] [facility] [address] documented in this encounter Nursing Notes * Heena Nixon LPN - 12/06/2023 3:21 PM EST 23 yo female presents with headache, sore throat, fever x 2 days. Took tylenol documented in this encounter Plan of Treatment Upcoming Encounters Date Type Department Care Team (Late st Contact Info) Description 01/03/2024 7:15 AM EST Cardiac Studies Cardiac Studies, [facility] [address] [facility] [place] [address] 01/15/2024 2:30 PM EST Telemedicine Psychiatry, [place] [address] [place] [address] Olena Padilla CRNP [address] [place] [address] 01/17/2024 8:30 AM EST Office Visit Allergy/Immunology [facility] [address] [place] [address] Terrie Julio PA-C [address] [facility] [place], [place] [address] 05/12/2024 8:00 AM EDT Office Visit [facility] [address] [facility] [place] [address] Karie Valdovinos MD [address] [facility] [place] [address] 07/14/2024 1:00 PM EDT Office Visit [facility] [address] [facility] [place] [address] Karie Valdovinos MD [address] [facility] [address] [place], [place] [address] Pending Results Name Type Priority Associated Diagnoses Date /Time INFLUENZA A/B RSV SARS-COV2,PCR Lab STAT Acute sore throat 12/06/2023 3:50 PM EST Scheduled Orders Name Type Priority Associated Diagnoses Orde r Schedule STREP A SCREEN, POINT OF CARE (ENTER/EDIT) Point of Care Testing Routine Acute sore throat Ordered: 12/06/2023 GROUP A STREP PCR Lab STAT Acute sore throat Ordered: 12/06/2023 Health Maintenance [...] Primary documented in this encounter Care Teams Molded Grid And Parts Inspector Relationship Specialty Start Date End Date Karie Valdovinos MD [address] [facility] [place] [place] [address] PCP - General Family Medicine 07/12/23 documented as of this encounter
--- OUTSIDE RECORDS SUMMARY | 2023-12-07 00:29 | External Medical Summary | Summary of Care ---
Author Name Unknown Organization [facility] Address [address] [place] [address] Phone [phone] Care Team Providers Care Access Consultant Name Role Phone Karie Valdovinos MD Primary Care Provider [phone] Reason for Visit * Reason Onset Date Comments Test Results 11/18/2023 Encounter Details Date Type Department Care Team (Late st Contact Info) Description 11/18/2023 Telephone Allergy/Immunology [facility] [address] [place] [address] Torsten Blake MD [address] [place] [address] Test Results Allergies Active Allergy Reactions Criticality Noted Date Comments Meperidine Hives,Rash High 07/12/2023 documented as of this encounter (statuses as of 11/18/2023) Medications Medication Sig Dispensed Refills Start Date End Date Status Eliquis 5 MG Oral Tablet Take 1 Tablet by mouth in the morning and 1 Tablet before bedtime. 0 07/05/2023 Active Corlanor 5 MG Oral Tablet Take 0.5 Tablets by mouth in the morning and 0.5 Tablets before bedtime. 0 07/08/2023 Active Ondansetron 4 MG Oral Tablet Disintegrating [...] every morning. 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 Bipolar 1 disorder 07/16/2023 JILL (generalized anxiety disorder) 07/16/2023 Hydronephrosis 07/12/2023 Recurrent UTI (urinary tract infection) 07/12/20 POTS (postural orthostatic tachycardia syndrome) 07/12/2023 documented as of this encounter (statuses as of 11/18/2023) Immunizations Name Administration Dates Next Due Seasonal Influenza Virus Vac cine, Unspecified Formulation 08/30/2023 documented as of this encounter Social History Tobacco Use Types Packs/Day Years Used Date Smoking Tobacco: Never Smokeless Tobacco: Never Alcohol Use Standard Drinks/Week Comments Yes 0 [...] on file documented as of this encounter Miscellaneous Notes * Telephone Encounter - Christy Davis LPN - 11/18/2023 9:11 AM EST [employer] message sent in regards to this. * Telephone Encounter - Christy Davis LPN - 11/18/2023 9:11 AM EST ----- Message from Torsten Blake MD sent at 11/18/2023 9:01 AM EST ----- Bloodwork reviewed. Kidney function, liver function, thyroid function, and electrolytes all returned within normal limits. Tryptase level returned within normal limits but this does not fully rule out mast cell activation syndrome. Would recommend continuing with the plan of care as outlined at thelast visit. Follow up as planned. Torsten Blake MD documented in this encounter Plan of Treatment Upcoming Encounters Date Type Department Care Team (Late st Contact Info) Description 01/03/2024 7:15 AM EST Cardiac Studies [facility] [id number] 01/15/2024 2:30 PM EST Telemedicine Psychiatry, [address] [place] [address] JasonOlena contreras, NURSING EDUCATOR [address] [place] [address] 01/17/2024 8:30 AM EST Office Visit Allergy/Immunology [facility] [address] [facility] [place] [address] Terrie Julio PA-C [address] [facility] [address] 05/12/2024 8:00 AM EDT Office Visit [facility] [address] [facility] [address] Karie Valdovinos MD [address] [facility] [address] 07/14/2024 1:00 PM EDT Office Visit [facility] [address] [facility] [address] Karie Valdovinos MD [address] [facility] [address] Health Maintenance Due Date Last Done Comments [...] Not on filedocumented as of this encounter Care Teams Access Consultant Relationship Specialty Start Date End Date Karie Valdovinos MD [address] [place] [address] PCP - General Family Medicine 07/12/23 documented as of this encounter
--- OUTSIDE RECORDS SUMMARY | 2023-12-07 00:29 | External Medical Summary | Summary of Care ---
Author Name Unknown Organization [facility] Address [address] [place] [address] Phone [phone] Care Team Providers Care Employer Relations Representative Name Role Phone Karie Valdovinos MD Primary Care Provider [phone] Reason for Visit * Reason Comments Follow Up C/o tachycardia (130 -160), SOB, dizzy Encounter Details Date Type Department Care Team (Late st Contact Info) Description 12/05/2023 3:00 PM EST Office Visit Cardiology, [facility] [address] [facility] [place] [address] Kaila Cabezas PA-C [address] [facility] [place] [address] POTS (postural orthostatic tachycardia syndrome)*; EDS (Haroldo-Danlos syndrome); Orthostasis Allergies Active Allergy Reactions Criticality Noted Date Comments Meperidine Hives,Rash High 07/12/2023 documented as of this encounter (statuses as of 12/05/2023) Medications Medication Sig Dispensed Refills Start Date [...] before bedtime. 90 Tablet 3 12/05/2023 Active Corlanor 5 MG Oral Tablet Take 0.5 Tablets by mouth in the morning and 0.5 Tablets before bedtime. 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 Never true 07/08/20 Within the past 12 months, t he [...] Sign Reading Time Taken Comments Blood Pressure 124/78 12/05/2023 3:08 PM EST Pulse 130 12/05/2023 3:08 PM EST Temperature - - Respiratory Rate 20 12/05/2023 2:58 PM EST Oxygen Saturation - - Inhaled Oxygen Concentration - - Weight 87.7 kg (193 lb 4 oz) 12/05/2023 2:58 PM EST Height - - Body Mass Index 29.38 11/13/2023 8:53 AM EST documented in this encounter Patient Instructions * Patient Instructions* Kaila Cabezas PA-C - 12/05/2023 3:37 PM EST Increase Midodrine to twice a day. Take flomax at night. documented in this encounter Progress Notes * Kaila Cabezas PA-C - 12/05/2023 2:59 PM EST 12/05/2023 Cardiology Follow Up Past Medical History: POTS, diagnosed at age 15 Haroldo-Danlos Syndrome May-Thurner Syndrome [employer] loop recorder implantation December 11, 2022 HPI: Nolvia Abdullahi is a 23 year old female who presents for acute visit. On 10/27/23 had ureteral stent placed at [facility]. Went to ED 12/02/23 with renal colic from bladder spasms, started on flomax daily and ditropan as needed. States today she started to have worsening of POTS symptoms, has chest pain, shortness of breath, lightheadedness, heart rate as high as 150s while sitting. Denies syncope. States she overall has notbeen feeling well. Continues to stay well hydrated and normal appetite. No changes in lifestyle. States she has been taking flomax in the mornings and has taken ditropan about twice a day. REVIEW OF SYSTEMS: See HPI for pertinent positives. All others negative other than those noted in the HPI. CONSTITUTIONAL: No change in weight, No weakness, No fatigue and No fevers, No sweats or chills. PULMONARY: No cough, sputum, or hemoptysis, No wheezing, No shortness of breath and No recent change in breathing. CARDIOVASCULAR: No chest pain, No dyspnea on exertion, No edema, No palpitations and No syncope. GASTROINTESTINAL: No abdominal pain, No change in bowel habits, No significant heartburn, No nausea, No vomiting, No diarrhea, No constipation, No blood in stools or black tarry stools. No dysphagia. HEMATOLOGIC: No abnormal bleeding and No bruising. NEUROLOGICAL: Normal balance, No headaches and No weakness. Review of patient's allergies indicates: Allergen Reactions Demerol Hcl [Meperidine] Hives and Rash Current Outpatient Medications Medication Sig Dispense Refill [...] No current facility-administered medications for this visit. No past medical history on file. No family history on file. Social History Socioeconomic History Marital status: Single Tobacco Use Smoking status: Never Smokeless tobacco: Never Vaping Use Vaping Use: Never used Substance and Sexual Activity Alcohol use: Yes Comment: On occasion Drug use: Never Social Determinants of Health Food Insecurity: No Food Insecurity (07/08/2023) Hunger Vital Sign Worried About Running Out of Food in the Last Year: Never true Ran Out of Food in the Last Year: Never true OBJECTIVE/PHYSICAL EXAMINATION: BP 124/78 (BP Site: Left Arm, BP Position: Standing, BP Cuff Size: Large) | Pulse 130 | Resp 20 | Wt 87.7 kg (193 lb 4 oz) | BMI 29.38 kg/m | BSA 2.05 m Orthostatic vitals Laying 128/76, HR 96 Sitting 126/80, HR 104 Standing 124/78, HR 130 General: No acute distress. A+Ox3. HEENT: Normocephalic. Atraumatic. PERRL. EOMI. Conjunctiva and sclera clear. NECK: No carotid bruits. No JVD. Carotid upstrokes are brisk. Heart: tachycardia. S1 and S2 noted. No murmur. No rubs or gallops. PMI non displaced. Lungs: Clear to auscultation. No wheezes. No rhonchi. No rales. Abdomen: Normal bowel sounds. Soft. Nontender. No masses or organomegaly. No abdominal bruits. Extremities: No edema. No clubbing or cyanosis. Pulses: radial=2/4, posterior tibial=2/4, dorsalis pedis = 2/4. NEURO: No focal deficits. PSYCH: Appropriate affect and insight. DATA Labs & Imaging Reviewed Below: EKG 12/05/23 Normal sinus rhythm, 98 bpm ASSESSMENT/PLAN: 23 year old female 1. POTS (postural orthostatic tachycardia syndrome) 2. EDS (Haroldo-Danlos syndrome) 3. Orthostasis - presenting with lightheadedness, shortness of breath, tachycardia, which started today - recently in ED with urology issues, started on flomax and ditropan, which may be contributing to her symptoms - advised to try taking flomax at night to see if it helps with symptoms - will increase midodrine to 5 mg twice daily, may be temporary increase in dose depending on how she responds to flomax at night - continue corlanor 2.5 mg twice daily, aspirin 81 mg daily, apixaban 5 mg twice daily - contact office if symptoms do not improve DISPOSITION: Follow up after echo All questions were answered to the patients satisfaction. Patient advised to report to ED with any and all emergencies. The patient agrees to the above plan and will call with additional questions or concerns. Kaila Cabezas PA-C Cardiology, [address] [place] [address] I spent a total of 40 minutes on the date of service in preparation, delivery, and documentation ofthe care provided to Nolvia Abdullahi excluding any time spent in the performance of separately billed services. This chart was completed in part utilizing [employer] Speech Voice Recognition Software. Grammatical errors, random word insertions, pronoun errors, and incomplete sentences are an occasional consequence of this system due to software limitations, ambient noise, and hardware issues. Any formal questions or concerns about the content, text, or information contained within the body of this dictation should be directly addressed to the provider for clarification. documented in this encounter Plan of Treatment Upcoming Encounters Date Type Department Care Team (Late st Contact Info) Description 01/03/2024 7:15 AM EST Cardiac Studies Cardiac Studies, [facility] [address] [facility] [place] [address] 01/15/2024 2:30 PM EST Telemedicine Psychiatry, [facility] [address] [place] [address] Olena Padilla CRNP [address] [place] [address] 01/17/2024 8:30 AM EST Office Visit Allergy/Immunology [facility] [address] [place] [address] Terrie Julio PA-C [address] [place] [address] 05/12/2024 8:00 AM EDT Office Visit [facility] [address] [place] [address] [address] Karie Valdovinos MD [address] [place] [address] 07/14/2024 1:00 PM EDT Office Visit [facility] [address] [place] [address] Karie Valdovinos MD [address] [place] [address] Scheduled Orders Name Type Priority Associated Diagnoses Orde r Schedule EKG EKG Routine EDS (Ahroldo-Danlos syndrome) POTS (postural orthostatic tachycardia syndrome) Orthostasis Ordered: 12/05/2023 Health Maintenance Due Date Last Done Comments [...] as of this encounter Visit Diagnoses Diagnosis POTS (postural orthostatic tachycardia syndrome)- Primary Tachycardia, unspecified EDS (Haroldo-Danlos syndrome) Haroldo-Danlos syndrome Orthostasis Orthostatic hypotension documented in this encounter Care Teams Employer Relations Representative Relationship Specialty Start Date End Date Karie Valdovinos MD [address] [place] [address] [address] PCP - General Family Medicine 07/12/23 documented as of this encounter"
--- OUTSIDE RECORDS SUMMARY | 2023-12-07 00:29 | External Medical Summary | Continuity of Care Document ---
Author Name Unknown Organization [facility] Address [address] [place] [id number] Care Team Providers Care Quality Assurance Intern Name Role Phone Karie Valdovinos Primary Care Physician [phone] [facility] [id number] Date(s): 12/02/23 - 12/02/[address] [id number] [phone] Encounter Diagnosis Bladder spasm(Discharge Diagnosis) - 12/02/23 Hydronephrosis(Discharge Diagnosis) - 12/02/23 Discharge Disposition: Home or Self Care Attending Physician: DO Noe Annahieta Allergies, Adverse Reactions, Alerts Substance Reaction Severity Status Demerol rash hives Severe Active Functional Status 12/02/23 History of Fall in Last 3 Months Meraz N o Presence of Secondary Diagnosis Meraz No Use of Ambulatory Aid Meraz None/bedrest /nurse assist IV/Heparin Lock Fall Risk Meraz Yes Gait/Transferring Fall Risk Meraz Normal /bedrest/immobile Mental Status Fall Risk Meraz Oriented t o own ability Meraz Fall Risk Score 20 Meraz Fall Risk No Risk Medications Abilify Start: 09/09/23 10:20:00 EDT, 10 mg =, PO, qhs Start Date: 09/09/23 Status: Ordered aspirin Start: 09/09/23 10:18:00 EDT, 81 mg =, PO, Daily Start Date: 09/09/23 Status: Ordered buPROPion Start: 09/09/23 10:19:00 EDT, 450 mg =, PO, Daily Start Date: 09/09/23 Status: Ordered Corlanor Start: 09/09/23 10:17:00 EDT, 2.5 mg =, PO, bid Start Date: 09/09/23 Status: Ordered Ditropan 5 mg oral tablet Start: 12/02/23 20:59:00 EST, 1 tab, PO, tid, Disp# 90 tab, may take up to 4 times a day if needed,PRN: as needed for urinary discomfort, Pharmacy: [facility]/pharmacy #[id number] Start Date: 12/02/23 Stop Date: 01/01/24 Status: Ordered Eliquis 5 mg oral tablet Start: 09/09/23 10:18:00 EDT, 1 tab, PO, bid Start Date: 09/09/23 Status: Ordered Flomax 0.4 mg oral capsule Start: 12/02/23 20:59:00 EST, 1 cap, PO, Daily, Disp# 30 cap, Pharmacy: [facility]/pharmacy #[id number] Start Date: 12/02/23 Stop Date: 01/01/24 Status: Ordered Keflex Start: 09/09/23 10:21:00 EDT, 125 mg =, PO, Daily, Used as a prophylactic Start Date: 09/09/23 Status: Ordered Levaquin 500 mg oral tablet Start: 10/29/23 9:01:00 EST, 1 tab, PO, q24h, Disp# 7 tab, Take 1 tablet daily starting tomorrow morning., Pharmacy: [facility]/pharmacy #[id number] Start Date: 10/29/23 Status: Ordered midodrine Start: 09/09/23 10:17:00 EDT, 5 mg =, PO, Daily Start Date: 09/09/23 Status: Ordered Percocet 5 mg-325 mg oral tablet Start: 10/29/23 9:16:00 EST, 1 tab, PO, q6h, Disp# 12 tab, Refills: 0, PRN: as needed for pain, Pharmacy: [facility]/pharmacy #[id number] Start Date: 10/29/23 Status: Ordered Percocet 5/325 Start: 10/29/23 9:18:00 EST, 1 tab, PO, q4h, Refills: 0, PRN: see order comments Start Date: 10/29/23 Status: Ordered SEROquel Start: 09/09/23 10:20:00 EDT, 100 mg =, PO, qhs Start Date: 09/09/23 Status: Ordered Problem List Condition Confirmation Course Effective Dates Status Health St atus Informant Hydronephrosis, right Confirmed Active Recurrent urinary tract infection Confirmed Active Diagnosis Diagnosis Type Effective Dates Health Status Cl inical Service Informant Bladder spasm Discharge Diagnosis 12/02/23 Hydronephrosis Discharge Diagnosis 12/02/23 Procedures Procedure Date Related Diagnosis Body Site Status CYSTOSCOPY LITHOTRIPSY LASER 1 10/29/23 Completed DILATATION URETHRA 2 10/29/23 Comp leted Celiac artery 3 Completed Cholecystectomy Completed Iliac artery embolus 4 Co mpleted Iliac artery stent Comple martha REIMPLANT URETER IN BLADDER Completed 1auto-populated from documented surgical case 2auto-populated from documented surgical case 3surgically opened up due to compression per pt 4x3 per pt Results Laboratory List Name Date Added on Lab order 12/02/23 Urine Analysis w/ Reflexed Microscopic. (Urinalysis w/ Reflexed Microscopic.) 12/02/23 Complete Blood Count w Differential (CBC w Platelets and Diff) 12/02/23 Comprehensive Metabolic Panel (CMP) 12/02 Urine HCG Nurse POC (Urine Sheri se POC) 12/02/23 Most recent to oldest [Reference Range]: 1 eGFR CKD-EPI [>60 mL/min/1.73 m2] >90 mL /min/1.73 m2 (12/02/23 3:18 PM) Beta HCG Ref Range [negative] (12/02/23 3:24 PM) Request of Physician urine culture (12/02/23 7:49 PM) Action Taken YES 1 (12/02/23 7:49 PM) Beta hCG Ql Negative 2 (12/02/23 3:24 PM) Estimated CrCl 140.29 mL/min (12/02/23 4:05 PM) MPV [9.0-12.2 fL] 9.2 fL (12/02/23 3:18 PM) Immature Gran% 0.2 % (12/02/23 3:18 PM) Neut% 62.9 % (12/02/23 3:18 PM) Lymph% 24.8 % (12/02/23 3:18 PM) [place]% 9.8 % (12/02/23 3:18 PM) Baso% 0.1 % (12/02/23 3:18 PM) Eos% 2.2 % (12/02/23 3:18 PM) Immat Gran, Abs [0-0.4 K/uL] 0.02 K/uL (12/02/23 3:18 PM) Neut, Abs [2.0-7.7 K/uL] 5.21 K/uL (12/02/23 3:18 PM) Lymph, Abs [1.0-3.4 K/uL] 2.06 K/uL (12/02/23 3:18 PM) [place], Abs [0-1.0 K/uL] 0.81 K/uL (12/02/23 3:18 PM) Baso, Abs [0-0.1 K/uL] 0.01 K/uL (12/02/23 3:18 PM) Eos, Abs [0-0.5 K/uL] 0.18 K/uL (12/02/23 3:18 PM) Type of Diff: AUTO (12/02/23 3:18 PM) RDW [11.5-14.2 %] 12.9 % (12/02/23 3:18 PM) Squamous Epithelial Cells (u) FEW (12/02/23 3:18 PM) Mucous (u) FEW (12/02/23 3:18 PM) Anion Gap [5-14 mmol/L] 10 mmol/L (12/02/23 3:18 PM) Alb [3.5-5.2 g/dL] 4.5 g/dL (12/02/23 3:18 PM) Alk Phos [35-115 unit/L] 85 unit/L (12/02/23 3:18 PM) ALT [0-33 unit/L] 11 unit/L (12/02/23 3:18 PM) AST [0-32 unit/L] 14 unit/L (12/02/23 3:18 PM) Bact (u) [NONE-NONE] FEW *Abnormal* (12/02/23 3:18 PM) Bili (u) [NEG] NEGATIVE (12/02/23 3:18 PM) BUN [6-23 mg/dL] 13 mg/dL (12/02/23 3:18 PM) Ca [8.4-10.2 mg/dL] 10.0 mg/dL (12/02/23 3:18 PM) Cl- [98-107 mmol/L] 105 mmol/L (12/02/23 3:18 PM) HCO3 [22-29 mmol/L] 25 mmol/L (12/02/23 3:18 PM) Cret [0.60-1.00 mg/dL] 0.73 mg/dL (12/02/23 3:18 PM) Glu [74-109 mg/dL] 97 mg/dL 3 (12/02/23 3:18 PM) Hct [35-44 %] 40.7 % (12/02/23 3:18 PM) Hgb [11.7-15.0 g/dL] 13.4 g/dL (12/02/23 3:18 PM) K [3.5-5.1 mmol/L] 3.8 mmol/L 4 (12/02/23 3:18 PM) Ketones [NEG mg/dL] NEGATIVE mg/dL (12/02/23 3:18 PM) Leuk Est [NEG] TRACE *Abnormal* (12/02/23 3:18 PM) MCH [28-33 pg] 30.5 pg (12/02/23 3:18 PM) MCHC [32-36 g/dL] 32.9 g/dL (12/02/23 3:18 PM) MCV [81-96 fL] 92.7 fL (12/02/23 3:18 PM) Na [136-145 mmol/L] 140 mmol/L (12/02/23 3:18 PM) Nitrite (u) [NEG] NEGATIVE (12/02/23 3:18 PM) Plts [150-350 K/uL] 252 K/uL (12/02/23 3:18 PM) RBC [3.90-5.00 M/uL] 4.39 M/uL (12/02/23 3:18 PM) T Bili [0.0-1.2 mg/dL] 0.1 mg/dL (12/02/23 3:18 PM) Prot [6.4-8.3 g/dL] 7.5 g/dL (12/02/23 3:18 PM) Appear (u) CLEAR (12/02/23 3:18 PM) Color (u) YELLOW (12/02/23 3:18 PM) Glu (u) [NEG mg/dL] NEGATIVE mg/dL (12/02/23 3:18 PM) Hgb (u) [NEG] LARGE *Abnormal* (12/02/23 3:18 PM) pH (u) [5.0-8.0 unit] 7.0 unit (12/02/23 3:18 PM) Prot (u) [NEG mg/dL] 100 mg/dL *Abnormal* (12/02/23 3:18 PM) RBC (u) [0-4 /HPF] 50+ /HPF (12/02/23 3:18 PM) Urobili [0.1-1.0 EU/dL] 0.1-1.0 EU/dL (12/02/23 3:18 PM) SG [1.005-1.030] 1.009 (12/02/23 3:18 PM) WBC (u) [0-4 /HPF] 5-9 /HPF (12/02/23 3:18 PM) WBC [4.0-10.4 K/uL] 8.29 K/uL (12/02/23 3:18 PM) 1Result Comment: Corrected on 12/02 AT 2000: Previously reported as FORWARDED TO TESTING LAB 2Result Comment: Performed at: [facility], [address] [place] [address] [place], [place] [id number] 3Result Comment: ADA recommendation for FASTING Serum/Plasma Glucose: Normal: 70-100 mg/dL Prediabetes: 100-125 mg/dL Diabetes: 126 mg/dL or higher 4Result Comment: HEMOLYZED SPECIMEN Orders for Microbiology Reports Name Date Urine Culture (CULTURE, URINE) 12/02/23 Microbiology Reports TEST:Urine.Cx STATUS:Auth (Verified) BODY SITE: SOURCE:Urine COLLECTED DATE/TIME:12/02/23 7:50 PM Status FINAL 12/04/2023 Radiology Reports * Exam Date Time Procedure Performing Provider Status 12/02/23 4:[address] Abdomen and Pelvis w/ Contrast Travis Graves; Final Notes: (CT Abdomen and Pelvis w/ Contrast) Reason For Exam: RLQ pain CT Abdomen and Pelvis w/ Contrast EXAMINATION: CT Abdomen and Pelvis w/ Contrast CLINICAL HISTORY: RLQ pain COMPARISON: CT 08/02/2023, intraoperative fluoroscopic images 10/29/2023 TECHNIQUE: CT Abdomen and Pelvis w/ Contrast CONTRAST: Contrast Type (IV): Omnipaque 350 Contrast Volume (IV) in ml: 100.00 DOSE: Total Reported Dose Length Product (DLP) = 369.44 mGy.cm FINDINGS: Lower chest: Lung bases are clear. ABDOMEN Liver, Gallbladder \T\ bile ducts: Normal hepatic parenchyma. Cholecystectomy clips. No biliary dilation. Pancreas: Normal Spleen: Normal Adrenals: Normal Kidneys, collecting system and ureters: Symmetric renal enhancement. Moderate right hydronephrosis.Right double-J stent unchanged in position (10/29/2023). Retroperitoneum, lymph nodes, and vessels: No lymphadenopathy. Normal course and caliber of the abdominal aorta. Left common iliac stent. Bowel \T\ Mesentery: No bowel obstruction. No free air. Trace physiologic free fluid. PELVIS Bladder: Right Double-J stent. Reproductive organs: IUD. No adnexal mass. Extraperitoneal, lymph nodes, vessels: No lymphadenopathy. Osseous and body wall: No acute osseous abnormality. IMPRESSION: Moderate right hydronephrosis with right double-J stent unchanged in position. [place] Act 112: This study does not meet the requirements of [place] Act 112. Dr. Andrews Finley is the dictating resident. Finalized reports status indicates that the attending has reviewed the images and report, and agrees with the interpretation. Preliminary report status should be regarded as NOT interpreted by the attending radiologist. Workstation ID: [id number] Final Dictated by:DO Finley Zachary Dictated DT/TM:12/02/2023 5:23 Resident:DO Finley Zachary Signed by:DO Azul Christian Signed (Electronic Signature):12/02/2023 5:22 p Vital Signs Most recent to oldest [Reference Range]: 1 2 3 Height 175.3 cm (12/02/23 2:22 PM) Patient Weight 87.6 kg (12/02/23 2:22 PM) Body Mass Index 28.51 kg/m2 (12/02/23 2:22 PM) Temperature [36.5-37.9 DegC] 37 DegC (12/02/23 10:13 PM) 36.4 DegC *LOW* (12/02/23 7:31 PM) 37.0 DegC (12/02/23 2:22 PM) Heart Rate 84 bpm (12/02/23 10:13 PM) 83 bpm (12/02/23 7:31 PM) 90 bpm (12/02/23 2:22 PM) Respiratory Rate 18 br/min (12/02/23 10:13 PM) 16 br/min (12/02/23 7:31 PM) 18 br/min (12/02/23 2:22 PM) Blood Pressure 125/84mmHg (12/02/23 10:13 PM) 121/89mmHg (12/02/23 7:31 PM) 141/82mmHg (12/02/23 2:22 PM) Mean Blood Pressure 98 mmHg (12/02/23 2:22 PM) Cuff Pulse Pressure 41 mmHg (12/02/23 10:13 PM) BP Location # 1 Right Arm (12/02/23 2:22 PM) Social History Social History Type Response Smoking Status Never smoked cigaret micki Sex Female Implantable Device List Procedure Provider Procedure Date Device Type Site Unknown Unknown 10/29/23 Unknown Unknown Device Identifier Serial Number Lot or Batch Number Manufacturing Date Expiration Date Distinct Identification Code MRI Safety Implantable Status Assigning Authority Unknown Unknown [id number] Unknown 04/15/26 Unknown Unknown Active Unknown Urology Consult note * MD Kale, Santiago: MODIFY MD Henley Alireza: MODIFY, MODIFY Event Display: Urology Consult Authored Date: Chief Complaint c/o fever since last night with Hx of stent placed last month and right lower abd pain is worse andgetting more painful as the day goes on, requesting to be evaluated by urology. 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 Patient has a complicatedurologic historythatincludes bilateral duplicatedcollecting systemsand vesicoure teral reflux. She underwentureteral reimplantation as a child. More recently she has been having recurrentinfections and nephrolithiasis of the right kidney for which she has undergonemultiple ureteral stent placements.She had a nuclear medicinerenalLasix scanperformed that showeda washout time of 13 minutes for the right kidney and 8 minutes for the left kidney.She hasundergonecystoscopy and right ureteral stent placement forobstructed right upper pole moiety by Dr. Champion on October 29, 2023 who is managing her urologic care. Since her stent placement, she has been havingpressure in her bladder as well as right renal colicwhich she has been trying to manage with Tylenol. She cannot take NSAIDs secondary to herbeing on Eliquis. She is not currently on Flomax or Ditropan. She experiences constipation at timesas well. She currently does not have any fever. She has associated nausea but no vomiting.She endorses dysuria. She has significant right flank pain as well as suprapubic discomfort. She has had some intermittent hematuriasince the stent has been put in place. Her urinalysis demonstrates yellow urine, negative nitrites, trace leukocyte esterase, 5-9 WBCs, 50+ RBCs, and few bacteria. Her urine culture is pending. CT of her abdomen/pelvis with contrast demonstratesbilateral duplicatedurinary collecting systems witha appropriately stented right upper pole moiety with some hydronephrosis. She is on Keflex antibiotic prophylaxisfor her recurrent urinary tract infections. She is currently afebrile and hemodynamically appropriate on room air. Her labs are notable for acreatinine of 0.73, white blood cell countof8.29, hemoglobin of 13.4, platelets of 252. Her PT/INR is14.0/1.1. Review of Systems Complete 14 point review of system is negative except for what is stated in the HPI. Physical Exam Vitals & Measurements T:36.4C TMIN:36.4C TMAX:37.0C HR:83(Monitored) RR:16 BP:121/89 SpO2:100% WT:87.600kg(Dosing) WT:87.6kg Input and Output - Last 24 hours (Last 8 hours) Total In: 104 (104) Total Out: 0 (0) Total Balance: 104 (104) MED INTAKE:104 (104) General:appears in pain HEENT:NC/AT Cardiac:RRR Lungs:equal chest rise, normal respiratory effort on RA Abdomen:soft, non-distended, RLQ tenderness to palpation :R CVA/flank tenderness to palpation, suprapubic tenderness to palpation Extremities:warm and well perfused Neuro:alert and oriented Skin:non-diaphoretic Diagnostic Results (12/02/2023 16:[address] Abdomen and Pelvis w/ Contrast) IMPRESSION: Moderate right hydronephrosis with right double-J stent unchanged in position. 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 Patient is having renal colic likely secondary toright ureteral stent and bladder spasms. Urinalysis is less concerning for active urinary tract infection but does demonstrate hematuria in thesettingof stent and Eliquis. The ureteral stent appears appropriately positioned on CT scan andwasplaced just over a month ago well within the allowabledurationof having an indwelling ureteral stent. 1.Bladder spasm 2.Hydronephrosis Recommendations: 1. No acute urologic intervention indicated. 2. Start Flomax0.4 mg daily for stent colic,Ditropan 5 mg 3 times daily for bladder spasms,and patient can continue Tylenolas needed for pain. 3. It is normal to see some blood in the urine with a stent and being anticoagulated. 4. Obtain a urine culture and follow-up results. In the event that patient does have an active urinary tract infection, pleasetailor her antibiotics andgive her a treatment courseaccording to sensitivities. 5. Patient should follow-up with Dr. Championfor her urologic care. 6. Patient can start MiraLAX daily for her constipation which can help alleviate some of herrenal colicas straining to defecate can cause additional reflux of urine up into the kidney with an indwelling ureteral stent. 7. Additionally, she can employ timed voiding to reduce renal colic. 8. For refractory renal colicin the setting of ureteral stent, can consider placing an indwelling Marrero catheter. 9. Dispo per ED. Staffed with attending j2ee application developer Dr. Santiago Henley. Urology pager [phone]. Attestation Kylie marroquin patient and discussed with our residents. I reviewed the chartand the note. Ryan with theassessment and plan. Santiago Henley MD Problem List/Past Medical History Ongoing Hydronephrosis, right Recurrent urinary tract infection Procedure/Surgical History REIMPLANT URETER IN BLADDERCeliac arteryCholecystectomyIliac artery embolusIliac artery stent Medications Inpatient oxyBUTYnin(Ditropan), 5 mg= 1 tab, PO, ONCE Home acetaminophen-oxycodone(Percocet 5/325), 1 tab, PO, q4h, PRN acetaminophen-oxycodone(Percocet 5 mg-325 mg oral tablet), 1 tab, PO, q6h, PRN apixaban(Eliquis 5 mg oral tablet), 5 mg= 1 tab, PO, bid ARIPiprazole(Abilify), 10 mg, PO, qhs aspirin, 81 mg, PO, Daily buPROPion, 450 mg, PO, Daily cephalexin(Keflex), 125 mg, PO, Daily ivabradine(Corlanor), 2.5 mg, PO, bid levoFLOXacin(Levaquin 500 mg oral tablet), 500 mg= 1 tab, PO, q24h midodrine, 5 mg, PO, Daily oxyBUTYnin(Ditropan 5 mg oral tablet), 5 mg= 1 tab, PO, tid, PRN QUEtiapine(SEROquel), 100 mg, PO, qhs tamsulosin(Flomax 0.4 mg oral capsule), 0.4 mg= 1 cap, PO, Daily Allergies Demerol(Severe)rash, hives Social History Smoking Status Never smoked cigarettes Seldom EtOH consumption. Does notdo recreational drugs. 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 Family History Family history of nephrolithiasis. Lab Results Test Name Test Result Date/Time Na 140 mmol/L 12/02/2023 15:18 EST K 3.8 mmol/L 12/02/2023 15:18 EST Cl- 105 mmol/L 12/02/2023 15:18 EST HCO3 25 mmol/L 12/02/2023 15:18 EST Anion Gap 10 mmol/L 12/02/2023 15:18 EST BUN 13 mg/dL 12/02/2023 15:18 EST Cret 0.73 mg/dL 12/02/2023 15:18 EST Estimated CrCl 140.29 mL/min 12/02/2023 16:05 EST eGFR CKD-EPI >90 mL/min/1.73 m2 12/02/2023 15:18 EST Glu 97 mg/dL 12/02/2023 15:18 EST Ca 10.0 mg/dL 12/02/2023 15:18 EST WBC 8.29 K/uL 12/02/2023 15:18 EST Hgb 13.4 g/dL 12/02/2023 15:18 EST Hct 40.7 % 12/02/2023 15:18 EST RBC 4.39 M/uL 12/02/2023 15:18 EST MCV 92.7 fL 12/02/2023 15:18 EST MCHC 32.9 g/dL 12/02/2023 15:18 EST MCH 30.5 pg 12/02/2023 15:18 EST RDW 12.9 % 12/02/2023 15:18 EST Plts 252 K/uL 12/02/2023 15:18 EST MPV 9.2 fL 12/02/2023 15:18 EST Type of Diff: AUTO 12/02/2023 15:18 EST Immature Gran% 0.2 % 12/02/2023 15:18 EST Neut% 62.9 % 12/02/2023 15:18 EST Lymph% 24.8 % 12/02/2023 15:[address] [place]% 9.8 % 12/02/2023 15:18 EST Baso% 0.1 % 12/02/2023 15:18 EST Eos% 2.2 % 12/02/2023 15:18 EST Immat Gran, Abs 0.02 K/uL 12/02/2023 15:18 EST Neut, Abs 5.21 K/uL 12/02/2023 15:18 EST Lymph, Abs 2.06 K/uL 12/02/2023 15:[address] [place], Abs 0.81 K/uL 12/02/2023 15:18 EST Baso, Abs 0.01 K/uL 12/02/2023 15:18 EST Eos, Abs 0.18 K/uL 12/02/2023 15:18 EST INR 1.1 10/29/2023 06:20 EST PTT 32 seconds 10/29/2023 06:20 EST PT 14.0 seconds 10/29/2023 06:20 EST ALT 11 unit/L 12/02/2023 15:18 EST T Bili 0.1 mg/dL 12/02/2023 15:18 EST Alk Phos 85 unit/L 12/02/2023 15:18 EST AST 14 unit/L 12/02/2023 15:18 EST Alb 4.5 g/dL 12/02/2023 15:18 EST Prot 7.5 g/dL 12/02/2023 15:18 EST Beta hCG Ql Negative 12/02/2023 15:24 EST Beta HCG Ref Range [negative] 12/02/2023 15:24 EST Color (u) YELLOW 12/02/2023 15:18 EST Appear (u) CLEAR 12/02/2023 15:18 EST Glu (u) NEGATIVE 12/02/2023 15:18 EST Bili (u) NEGATIVE 12/02/2023 15:18 EST Ketones NEGATIVE 12/02/2023 15:18 EST SG 1.009 12/02/2023 15:18 EST Hgb (u) LARGE 12/02/2023 15:18 EST pH (u) 7.0 unit 12/02/2023 15:18 EST Prot (u) 100 mg/dL 12/02/2023 15:18 EST Urobili 0.1-1.0 12/02/2023 15:18 EST Nitrite (u) NEGATIVE 12/02/2023 15:18 EST Leuk Est TRACE 12/02/2023 15:18 EST WBC (u) 5-9 12/02/2023 15:18 EST RBC (u) 50+ 12/02/2023 15:18 EST Bact (u) FEW 12/02/2023 15:18 EST Squamous Epithelial Cells (u) FEW 12/02/2023 15:18 EST Mucous (u) FEW 12/02/2023 15:18 EST [1]CT Abdomen and Pelvis w/ Contrast; DO Azul Christian 12/02/2023 16:55 EST Electronic Signature on File CC: Ministerio Champion D.O. [address] [address] Electronically Reviewed/Signed by: Ana Bourne MD Author Signature Dt/Tm:12/02/2023 09:44 PM Resident Department of Urology Electronically Reviewed/Signed by: Ana Bourne MD Cosigner Signature Dt/Tm: 12/02/2023 10:04 PM Resident Department of Urology Electronically Reviewed/Signed by: Santiago Henley MD Cosigner Signature Dt/Tm: 12/04/2023 12:43 PM Division of Urology [facility] Emergency department Summary note * DO Noe Annahieta: MODIFY DO Noe Annahieta: MODIFY, MODIFY, MODIFY Event Display: ED Summary Authored Date: History of Present Illness Per previous provider: Suleman is a [id number] female with a past medical historycomplex urologic problemsincludingright hydronephrosis, recurrent urinary tract infection. She reports that she follows with our urologists here. She most recently had a procedure on October 29where she underwent a cystoscopy, rightretrograde, rightureteroscopic aand right urethral stent insertion. She reports that overall, she has been doing well at home. She has noticed some intermittent episodes ofhematuria. 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 So, she reports that the urologist told her that this may be an expected posts urgical finding. However,she reports thatlast night she began with a low- grade temperature of99.5, chills, sweatsandright flank painradiating into her right lower quadrant. She reportsthat her pain has beenincreasingly worse as the day goes on and she is now having associated nausea. She describes the pain in her right flank as constant, achy, with associated intermittent suprapubic painthat she describes as sharp and stabbing. She reports that she is having dysuria, andnotedthat she hadbright red blood in her urine today. Otherwise, she denies anycough, congestion, headache, visual changes, lightheadedness, dizziness, chest pain, shortness of breath, vomiting, diarrhea, rashes, or myalgias. Reexamination/Reevaluation Vitals & Measurements T:36.4C HR:83(Monitored) RR:16 BP:121/89 SpO2:100% HT:175.3cm WT:87.600kg(Dosing) WT:87.6kg BMI:28.51 General: Well hydrated, Well nourished. no acute distress. Skin: normal per ethnicity, warm, dry, intact. no rash. CV: Heart regular rhythm and rate. Pulmonary: non labored respirations, lung sounds clear to auscultation bilaterally. lung sounds andexpansion symmetrical. No cough. Neuro: alert and oriented x 4. Psych: cooperative. normal judgement Lab Results Chemistry LATEST RESULTS Na 12/02/23 15:18 140 mmol/L K 12/02/23 15:18 3.8 mmol/L Cl- 12/02/23 15:18 105 mmol/L HCO3 12/02/23 15:18 25 mmol/L Anion Gap 12/02/23 15:18 10 mmol/L BUN 12/02/23 15:18 13 mg/dL Cret 12/02/23 15:18 0.73 mg/dL Estimated CrCl 12/02/23 16:05 140.29 eGFR CKD-EPI 12/02/23 15:18 >90 mL/min/1.73 m2 Glu 12/02/23 15:18 97 mg/dL Ca 12/02/23 15:18 10.0 mg/dL CBC LATEST RESULTS WBC 12/02/23 15:18 8.29 K/uL Hgb 12/02/23 15:18 13.4 g/dL Hct 12/02/23 15:18 40.7 % RBC 12/02/23 15:18 4.39 M/uL MCV 12/02/23 15:18 92.7 fL MCHC 12/02/23 15:18 32.9 g/dL MCH 12/02/23 15:18 30.5 pg RDW 12/02/23 15:18 12.9 % Plts 12/02/23 15:18 252 K/uL MPV 12/02/23 15:18 9.2 fL Type of Diff: 12/02/23 15:18 AUTO Immature Gran% 12/02/23 15:18 0.2 % Neut% 12/02/23 15:18 62.9 % Lymph% 12/02/23 15:18 24.8 % [place]% 12/02/23 15:18 9.8 % Baso% 12/02/23 15:18 0.1 % Eos% 12/02/23 15:18 2.2 % Immat Gran, Abs 12/02/23 15:18 0.02 K/uL Neut, Abs 12/02/23 15:18 5.21 K/uL Lymph, Abs 12/02/23 15:18 2.06 K/uL [place], Abs 12/02/23 15:18 0.81 K/uL Baso, Abs 12/02/23 15:18 0.01 K/uL Eos, Abs 12/02/23 15:18 0.18 K/uL Liver/GI LATEST RESULTS ALT 12/02/23 15:18 11 unit/L T Bili 12/02/23 15:18 0.1 mg/dL Alk Phos 12/02/23 15:18 85 unit/L AST 12/02/23 15:18 14 unit/L Nutrition LATEST RESULTS Alb 12/02/23 15:18 4.5 g/dL Prot 12/02/23 15:18 7.5 g/dL Reproductive LATEST RESULTS HISTORICAL RESULTS Beta hCG Ql 12/02/23 15:24 Negative 10/29/23 Negative Beta HCG Ref Range 12/02/23 15:24 [negative] 10/29/23 [negative] Urine LATEST RESULTS HISTORICAL RESULTS Color (u) 12/02/23 15:18 YELLOW 09/09/23 Yellow Appear (u) 12/02/23 15:18 CLEAR Glu (u) 12/02/23 15:18 NEGATIVE mg/dL 09/09/23 Negative Bili (u) 12/02/23 15:18 NEGATIVE 09/09/23 Negative Ketones 12/02/23 15:18 NEGATIVE mg/dL 09/09/23 Negative SG 12/02/23 15:18 1.009 09/09/23 1.025 Hgb (u) 12/02/23 15:18 LARGE Abnormal 09/09/23 Negative pH (u) 12/02/23 15:18 7.0 unit 09/09/23 6.5 Prot (u) 12/02/23 15:18 100 mg/dL Abnormal 09/09/23 Negative Urobili 12/02/23 15:18 0.1-1.0 EU/dL 09/09/23 0.2 Nitrite (u) 12/02/23 15:18 NEGATIVE 09/09/23 Negative Leuk Est 12/02/23 15:18 TRACE Abnormal 09/09/23 Negative WBC (u) 12/02/23 15:18 5-9 /HPF 09/09/23 Not Done RBC (u) 12/02/23 15:18 50+ /HPF Bact (u) 12/02/23 15:18 FEW Abnormal Squamous Epithelial Cells (u) 12/02/23 15:18 FEW Mucous (u) 12/02/23 15:18 FEW Added Tests LATEST RESULTS Request of Physician 12/02/23 19:49 urine culture Action Taken 12/02/23 19:49 YES Medical Decision Making Patient handed off from LACY Wright pending urology evaluation and recommendations. 2042: Received call from urology. They believe patient symptoms are secondary to renal colic frombladder spasms. Recommendations as follows: -Ditropan 5 mg 3 times a day, can increase to 4 times a day if necessary -Flomax 0.4 mg daily -Tylenol as needed not to exceed 4000 mg/day -Timed voiding -Avoid straining with bowel movements, take daily MiraLAX -Call Dr. Neil discuss nuclear medicine study Allrelevant results from testing reviewedwith patient. Reassessmentof patient complete. Plan of care was discussed with the patient prior to dischargeand all questions answered. Will givepatient 1 dose of Ditropan before discharge today. Prescriptions for Ditropan and [facility]. Patient understands and agrees with the plan. Relevant educational material given.Plan of care also discussedwithandagreed upon by attending. Assessment/Plan 1.Bladder spasm 2.Hydronephrosis Attestation This patient was evaluated by the MARIA ISABEL. I was informed of the patient, and was available for consultation for the duration of my shift. I personally have not examined or evaluated this patient. Electronic Signature on File Electronically Reviewed/Signed by: Minna Patel PA-C Author Signature Dt/Tm:12/02/2023 10:13 PM Department of Emergency Medicine Electronically Reviewed/Signed by: DO Rory Rocha Signature Dt/Tm: 12/02/2023 10:52 PM Department of Emergency Medicine BK * TrujilloLACY Kelly A: MODIFY, MODIFY, MODIFY, PERFORM, MODIFY, MODIFY, MODIFY DO Noe Annahieta: MODIFY Event Display: ED Summary Authored Date: Chief Complaint c/o fever since last night with Hx of stent placed last month and right lower abd pain is worse andgetting more painful as the day goes on, requesting to be evaluated by urology. History of Present Illness Suleman is a [id number] female with a past medical historycomplex urologic problemsincludingright hydronephrosis, recurrent urinary tract infection. She reports that she follows with our urologists here. She most recently had a procedure on October 29where she underwent a cystoscopy, rightretrograde, rightureteroscopic aand right urethral stent insertion. She reports that overall, she has been doing well at home. She has noticed some intermittent episodes ofhematuria. 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 So, she reports that the urologist told her that this may be an expected postsurgical finding. Cancino gutierrez,she reports thatlast night she began with a low-grade temperature of 99.5, chills, sweatsandright flank painradiating into her right lower quadrant. She reports that her pain has beenincreasingly worse as the day goes on and she is now having associated nausea. She describes thepain in her right flank as constant, achy, with associated intermittent suprapubic painthat she describes as sharp and stabbing. She reports that she is having dysuria, and notedthat she hadbright red blood in her urine today. Otherwise, she denies anycough, congestion, headache, visual changes, lightheadedness, dizziness, chest pain, shortness of breath, vomiting, diarrhea, rashes, or myalgias. Review of Systems Constitutional symptoms:+ sweats, no fever,+ chills. Skin symptoms: No jaundice, no rash. Eye symptoms: Vision unchanged. ENMT symptoms: No sore throat, no nasal congestion. Respiratory symptoms: No Shortness of breath, No cough,no hemoptysis Cardiovascular symptoms: No Chest pain, No palpitations, Gastrointestinal symptoms:+ Nausea,+ abdominal pain, no vomiting, no diarrhea, no constipation,nohematemesis, no hematochezia Genitourinary symptoms:+ dysuria,+ hematuria. Musculoskeletal symptoms:+ back pain, No joint pain Neurologic symptoms: No headache, no dizziness, no numbness, no tingling, no weakness. Hematologic/Lymphatic symptoms:anticoagulated on eliquis, bruising tendency negative. Physical Exam Vitals & Measurements T:37.0C HR:90(Monitored) RR:18 BP:141/82 SpO2:98% HT:175.3cm WT:87.600kg(Dosing) WT:87.6kg BMI:28.51 General: awake, Alert, appears uncomfortable, nontoxic appearing Skin:Warm, dry, normal for ethnicity, intact. Head:Normocephalic, atraumatic. Neck:Supple, trachea midline. Eye:Normal conjunctiva. Ears, nose, mouth and throat:Oral mucosa moist.Oropharynx with noerythema, ulcerations, or exudate Cardiovascular:Regular rate and rhythm, No murmur, Normal peripheral perfusion. Respiratory:Lungs are clear to auscultation, respirations are non-labored, breath sounds are equal, Symmetrical chest wall expansion. Gastrointestinal:Soft, Non distended, tenderness to palpation of suprapubic area, as well as tenderness to the RLQ. no rebound tenderness, no guarding. no peritoneal signs. +BS in all quadrants. Back:Normal alignment. Musculoskeletal:Normal ROM.+R CVA tenderness Neurological: Alert and oriented to person, place, time, and situation, No focal neurological deficit observed, normal sensory observed, normal speech observed. Psychiatric:Cooperative, appropriate mood & affect. Medical Decision Making This is a23 yearoldFemalewith a complex urologic historypresenting to the emergency departmentwith a chief complaint of[right flank pain, radiating into her right lower quadrant and suprapubic area with associatedchills, sweats,and nausea x 24 hours. She had a right urethral stent placed with urology onOctober 29and reports that postoperatively, she has been doing well overall. She has had someintermittent episodes of hematuriathat she was told to expect that she is anticoagulated on Eliquis. However,yesterday, shebegan withthese acute symptoms of pain, chills, nausea, as well as some dysuria. She has noted2 episodes ofhematuria today. Her vital signs were reviewed and are overall unremarkable. She is afebrile,not tachycardic. Her blood pressure isvery mildly elevated at 141/82. Suspect that this is due to patient being in pain. On exam, the patient is awake, alert,nontoxic-appearing, however she does appear uncomfor table. Upon physical exam,the patient is noted to have tenderness to palpation of the suprapubic area, extending into the right lower quadrant. No rebound tenderness, no guarding or peritoneal signs. She does also have right CVA tenderness. The differential diagnosis for this patient includes but is not limited toUTI, nephrolithiasis, pyelonephritis,hydronephrosis, appendicitis. Low suspicion for ovarian torsion as the patient reportsthat the pain starts in her right flank and radiates forward,as well as hematuria and right CVA tenderness. The patient received a basic workup while she was still in the waiting room including aCBC, CMP,urinalysis and urine test. The lab work was reviewed and is grossly unremarkable. Thepatient'spregnancy is negative. The urine was reviewed and showslarge blood,100 mg/dL of protein,trace leukocytes, no nitrates. CT of the abdomen and pelvis demonstratesthat the stentis in place, notable formoderate right hydronephrosis. The patient reports that Tylenol was effective for her pain last night. She has not had any today. Willtreat pain at this time with 1 g of IV Tylenol. Given her nausea, will also give4 mg of IV Zofran. As this patient is a urology patient, will consult them for further recommendations. Reexamination/Reevaluation 12/02/2023 19:30:36: Spoke with urology. ReviewedHPI, physical exam, lab work, urinalysis, and CT results. They report that hydronephrosis can still jarvis expected finding given the patient's history, and along with the patient's symptoms. Recommend daily Flomax, as well as Tylenol and ibuprofen [id number]-[id number] for pain. 12/02/2023 19:47:28: Spoke withradiology reading room. Requested that they evaluate patient's appendix on the CT as it is not commented onin the CT read. Per residential carpenter,the patient's appendix appears unremarkable. No evidence of appendicitis that would attribute to the patient's pain. 12/02/2023 20:13:10: Patient continues with significant7 out of 10 pain despite IV Tylenol. Ramsesoes report resolution of nausea with Zofran. She has a documented Demerol allergy, reports a rash several years ago. She has tolerated oxycodone without any issue since then. Discussed with clinical pharmacy. Will give dose of 0.4 mg of Dilaudid at this time for pain. Concern that patient's pain may not be well-managed at home with recommended plan by urologyas she cannot take ibuprofen or NSAIDs due to her anticoagulation on Eliquis. Spoke with urology again, requested that theydo come down to reevaluate the patientand weigh in further on her plan of care. They agree thatthey will come down to evaluate the patient at this time. 12/02/2023 20:33:54: Report to Minna Patel PA-C. Remainder of ED care for this patient is per the receiving provider. Assessment/Plan 1.Bladder spasm 2.Hydronephrosis Attestation This patient was evaluated by the MARIA ISABEL. I was informed of the patient, and was available for consultation for the duration of my shift. I personally have not examined or evaluated this patient. Problem List/Past Medical History Ongoing Hydronephrosis, right Recurrent urinary tract infection Procedure/Surgical History REIMPLANT URETER IN BLADDERCeliac arteryCholecystectomyIliac artery embolusIliac artery stent Medications Home acetaminophen-oxycodone(Percocet 5/325), 1 tab, PO, q4h, PRN acetaminophen-oxycodone(Percocet 5 mg-325 mg oral tablet), 1 tab, PO, q6h, PRN apixaban(Eliquis 5 mg oral tablet), 5 mg= 1 tab, PO, bid ARIPiprazole(Abilify), 10 mg, PO, qhs aspirin, 81 mg, PO, Daily buPROPion, 450 mg, PO, Daily cephalexin(Keflex), 125 mg, PO, Daily ivabradine(Corlanor), 2.5 mg, PO, bid levoFLOXacin(Levaquin 500 mg oral tablet), 500 mg= 1 tab, PO, q24h midodrine, 5 mg, PO, Daily QUEtiapine(SEROquel), 100 mg, PO, qhs Allergies Demerol(Severe)rash, hives Social History Smoking Status Never smoked cigarettes Lab Results Laboratory or Other Results This Visit(last charted value for your12/02/2023visit) Chemistry 12/02/23 16:05:08 Estimated CrCl:140.29mL/min 12/02/23 15:18:00 Anion Gap:10mmol/L--Normal range between(5and14) BUN:13mg/dL--Normal range between(6and23) Ca:10.0mg/dL--Normal range between(8.4and10.2) Cl-:105mmol/L--Normal range between(96xfp416) HCO3:25mmol/L--Normal range between(21pet91) Cret:0.73mg/dL--Normal range between(0.60and1.00) Glu:97mg/dL--Normal range between(88wyy432) K:3.8mmol/L--Normal range between(3.5and5.1) Na:140mmol/L--Normal range between(803ngx762) eGFR CKD-EPI:>90mL/min/1.73 m2 CBC 12/02/23 15:18:00 Hct:40.7%--Normal range between(16eth99) Hgb:13.4g/dL--Normal range between(11.7and15.0) MCH:30.5pg--Normal range between(16lzg51) MCHC:32.9g/dL--Normal range between(84ssv35) MCV:92.7fL--Normal range between(73enn03) Plts:252K/uL--Normal range between(878gge608) RBC:4.39M/uL--Normal range between(3.90and5.00) WBC:8.29K/uL--Normal range between(4.0and10.4) MPV:9.2fL--Normal range between(9.0and12.2) Immature Gran%:0.2% Neut%:62.9% Lymph%:24.8% [place]%:9.8% Baso%:0.1% Eos%:2.2% Immat Gran, Abs:0.02K/uL--Normal range between(0and0.4) Neut, Abs:5.21K/uL--Normal range between(2.0and7.7) Lymph, Abs:2.06K/uL--Normal range between(1.0and3.4) [place], Abs:0.81K/uL--Normal range between(0and1.0) Baso, Abs:0.01K/uL--Normal range between(0and0.1) Eos, Abs:0.18K/uL--Normal range between(0and0.5) Type of Diff::AUTO RDW:12.9%--Normal range between(11.5and14.2) Liver/GI 12/02/23 15:18:00 Alk Phos:85unit/L--Normal range between(86gyw161) ALT:11unit/L--Normal range between(0and33) AST:14unit/L--Normal range between(0and32) T Bili:0.1mg/dL--Normal range between(0.0and1.2) Nutrition 12/02/23 15:18:00 Alb:4.5g/dL--Normal range between(3.5and5.2) Prot:7.5g/dL--Normal range between(6.4and8.3) Reproductive 12/02/23 15:24:00 Beta hCG Ql:Negative Beta HCG Ref Range:[negative] Urine 12/02/23 15:18:00 Bact (u):FEW Bili (u):NEGATIVE Ketones:NEGATIVEmg/dL Leuk Est:TRACE Nitrite (u):NEGATIVE Appear (u):CLEAR Color (u):YELLOW Glu (u):NEGATIVEmg/dL Hgb (u):LARGE pH (u):7.0unit--Normal range between(5.0and8.0) Prot (u):100mg/dL RBC (u):50+/HPF--Normal range between(0and4) Urobili:0.1-1.0EU/dL--Normal range between(0.1and1.0) S.009--Normal range between(1.537lef7.030) WBC (u):5-9/HPF--Normal range between(0and4) Squamous Epithelial Cells (u):FEW Mucous (u):FEW Computed Tomography 12/02/23 16:55:49 CT Abdomen and Pelvis w/ Contrast:CTAbdomenandPelvisw/Contrast Diagnostic Results CT Abdomen and Pelvis w/ Contrast EXAMINATION: CT Abdomen and Pelvis w/ Contrast CLINICAL HISTORY: RLQ pain COMPARISON: CT 08/02/2023, intraoperative fluoroscopic images 10/29/2023 TECHNIQUE: CT Abdomen and Pelvis w/ Contrast CONTRAST: Contrast Type (IV): Omnipaque 350 Contrast Volume (IV) in ml: 100.00 DOSE: Total Reported Dose Length Product (DLP) = 369.44 mGy.cm FINDINGS: Lower chest: Lung bases are clear. ABDOMEN Liver, Gallbladder \T\ bile ducts: Normal hepatic parenchyma. Cholecystectomy clips. No biliary dilation. Pancreas: Normal Spleen: Normal Adrenals: Normal Kidneys, collecting system and ureters: Symmetric renal enhancement. Moderate right hydronephrosis.Right double-J stent unchanged in position (10/29/2023). Retroperitoneum, lymph nodes, and vessels: No lymphadenopathy. Normal course and caliber of the abdominal aorta. Left common iliac stent. Bowel \T\ Mesentery: No bowel obstruction. No free air. Trace physiologic free fluid. PELVIS Bladder: Right Double-J stent. Reproductive organs: IUD. No adnexal mass. Extraperitoneal, lymph nodes, vessels: No lymphadenopathy. Osseous and body wall: No acute osseous abnormality. IMPRESSION: Moderate right hydronephrosis with right double-J stent unchanged in position. Electronic Signature on File Electronically Reviewed/Signed by: Kaylah Trujillo Author Signature Dt/Tm:12/02/2023 09:23 PM Department of Emergency Medicine Electronically Reviewed/Signed by: DO Rory Rocha Signature Dt/Tm: 12/02/2023 10:43 PM Department of Emergency Medicine JOSE * JCARLOS Simeon Erynne E: MODIFY, PERFORM JCARLOS Simeon Erynne E: PERFORM DO Quintanilla Matthew Scott: MODIFY Event Display: ED Summary Authored Date: [id number] Name:SULEMAN HILL Patient Number:[id number] :2000 Date of Service:12/02/2023 Care initiation note Limited HPI: Suleman is a 23 yof who comes to the ED c/o right sided lower abd pain that began last night but became worse about 1 hour ago. She has associated nausea. denies vomiting or diarrhea. LNMP 2 weeks ago. Had a stent placed in the right kidney and continues to have blood in her urine. Has not received call from urology with follow up. On limited exam: Vitals:Last Updated 12/02/23 14:22 Weights:Last Updated 12/02/23 14:22 Date Temp Pulse BP RR SpO2 FIO2 Date Wt(kg) Wt(lb) 12/02 14: 37.0 90 141/82 18 98 12/02 14: 87.6 193 12/02 14: 87.6 193 24 Hr Tmax:37.0 at 12/02 14: Initial Wt:12/02 87.6 kg 193 lb General- alert,uncomfortable. Fully dressed sitting in a chair. Cardiovascular- normal peripheral perfusion. Lungs- nonlabored respirations. Neuro- alert and oriented without focal neurological deficit. Additional- Assessment/plan: DDX of RLQ pain Will orderCBC, CMP, UA, poc preg, CT abd/pelvis Plan for further history, evaluation, treatment and placement inwaiting for e track This note was transcribed using voice recognition software. Because of this technology, there are often unintended grammatical, spelling, and other blade grader operator errors. Please disregard these errors. This patient was evaluated only briefly in the care initiation area. A limited HPI and limited exam were performed and appropriate imaging and lab work was ordered if indicated based on a broad range of differentials. Once the patient is placed in a treatment room, a further evaluation and detailed history and physical exam should be performed to narrow the differentials and the patient's primary complaint. Attending Attestation: I did not participate in the care of this patient. I was available for consultation however if needed. History, physical exam, review of systems and medical decision makingsolely per MARIA ISABEL mentioned above. Electronic Signature on File Electronically Reviewed/Signed by: Marcelino Simeon PA-C Author Signature Dt/Tm:12/02/2023 02:24 PM Department of Emergency Medicine Electronically Reviewed/Signed by: DO Rory Horton Signature Dt/Tm: 12/02/2023 02:59 PM Department of Emergency Medicine EED Patient Care team information Care Team Personnel Name: MD Aruna, Karie Guerra Position: Referring Member Role: Primary Care Provider Address: Address: [facility] :Family Medicine [address] [place] [address] Name: DO Noe Annahieta Position: Physician - Emerg Med SA Member Role: * Quality Review (1 day after created) Address: Address: [address] [place] [address] Name: JCARLOS Patel Breeanne Position: Physician Special Event Assistant - Emerg Med Member Role: Covering (3 days after created) Address: Address: [address] [place] [address] Name: GREGORY Hsu Morgan Position: RN Member Role: Direct Care Nurse Name: LACY Trujillo Kelly A Position: Nurse Pract - Emerg Med Member Role: * Quality Review (1 day after created) Address: Address: [address] [place] [address] Care Team Related Persons Name: KRYSTLE HILL Address: home [id number] [place], [place] [id number] [place], [place] [id number] Name: LASHONDA DÍAZ Address: home [address] [id number]
--- OUTSIDE RECORDS SUMMARY | 2023-12-07 00:29 | External Medical Summary | Summary of Care ---
Author Name Unknown Organization [facility] Address [address] [place] [address] Phone [phone] Care Team Providers Care Christmas Tree Contractor Name Role Phone Karie Valdovinos MD Primary Care Provider [phone] Reason for Visit * Reason Onset Date Comments Sore Throat Sore Throat 12/06/2023 Encounter Details Date Type Department Care Team (Latest Contact Info) Description 12/06/2023 3:00 PM EST Convenient Care Visit [facility] [address] [place] [address] Charles Laughlin PA-C [address] [place] [address] Acute sore throat* Allergies Active Allergy Reactions [...] of care were discussed Charles Laughlin PA-C [facility] [address] [facility] [address] documented in this encounter Nursing Notes * Heena Nixon LPN - 12/06/2023 3:21 PM EST 23 yo female presents with headache, sore throat, fever x 2 days. Took tylenol documented in this encounter Plan of Treatment Upcoming Encounters Date Type Department Care Team (Late st Contact Info) Description 01/03/2024 7:15 AM EST Cardiac Studies Cardiac Studies, [facility] [address] [facility] [place] [address] 01/15/2024 2:30 PM EST Telemedicine Psychiatry, [place] [address] [place] [address] Olena Padilla CRNP [address] [place] [address] 01/17/2024 8:30 AM EST Office Visit Allergy/Immunology [facility] [address] [place] [address] Terrie Julio PA-C [address] [facility] [place], [place] [address] 05/12/2024 8:00 AM EDT Office Visit [facility] [address] [facility] [place] [address] Karie Valdovinos MD [address] [facility] [place] [address] 07/14/2024 1:00 PM EDT Office Visit [facility] [address] [facility] [place] [address] Karie Valdovinos MD [address] [facility] [address] [place], [place] [address] Pending Results Name Type Priority Associated Diagnoses [...] Primary documented in this encounter Care Teams Christmas Tree Contractor Relationship Specialty Start Date End Date Karie Valdovinos MD [address] [facility] [place] [address] PCP - General Family Medicine 07/12/23 documented as of this encounter
--- OUTSIDE RECORDS SUMMARY | 2023-12-07 00:29 | External Medical Summary ---
Author Name Unknown Address Unknown Organization K01:[facility] [place] - [address] [facility] [address] Laboratory Report Ordering Provider Test Date Status BAUTISTA BRICEÑO 12/06/2023 15:50:26 Final Observation Date Value Abnormality Reference (Units ) Status SARS Coronavirus 2 12/06/2023 15:50:26 Negative N egative Final No SARS-CoV2 Coronavirus RNA detected by PCR (amplified probe).
This express test was developed and its performance characteristics determined by [facility]. It has not been cleared or approved by the U.S. Food and Drug Administration (FDA). FDA does not require this test to go thru premarket FDA review. This test is used for clinical purposes. It should not be regarded as investigational or for research. This laboratory is certified under the Clinical Laboratory Improvement Amendments (CLIA) as qualified to perform high complexity clinical laboratory testing.

This test is a nucleic acid amplification test (NAAT), a reverse transcriptase polymerase chain reaction (RT-PCR) test, or a Centers for Disease Control-acceptable equivalent. The test is performed in a high complexity Clinical Laboratory Improvement Amendments-(CLIA) certified laboratory. The test is acceptable for SARS-CoV-2 diagnosis, surveillance, and travel within the [facility] and to most countries. Please check with local testing authorities about requirements before travel.

The validation of bronchial specimens, tracheal aspirates, and sputum for this assay was developed and performance characteristics determined by [facility]. The validation of alternate specimen types has not been cleared or approved by the U.S. Food and Drug Administration (FDA). It has been determined that such clearance is not necessary. Influenza virus A RNA [Prese nce] in Specimen by [facility] with probe detection 12/06/2023 15:50:26 Positive Abnormal Negative Final Influenza A RNA detected by PCR (amplified probe). Test results reported to [facility]. Influenza virus B RNA [Prese nce] in Specimen by [facility] with probe detection 12/06/2023 15:50:26 Negative Negative Final No Influenza B RNA detected by PCR (amplified probe) Respiratory syncytial virus RNA [Identifier] in Specimen by [facility] with probe detection 12/06/2023 15:50:26 Negative Negative Final No Respiratory Syncytial Vir us RNA detected by PCR (amplified probe) Performing Location LABORATORY [address] [place]. [facility] [address]
--- OUTSIDE RECORDS SUMMARY | 2023-12-07 00:30 | External Medical Summary ---
Author Name Unknown Address Unknown Organization K01:[facility] [place] [address] [facility] [address] Laboratory Report Ordering Provider Test Date Status JADEALIZA 11/13/2023 09:38:00 Final Observation Date Value Abnormality Reference (Units ) Status TSH 11/13/2023 09:38:00 2.46 0.27-4.20 (uIU/mL) Final Performing Location [facility] [place] [address] [facility] [address]
--- OUTSIDE RECORDS SUMMARY | 2023-12-07 00:30 | External Medical Summary | Summary of Care ---
Author Name Unknown Organization [facility] Address [address] [place] [address] Phone [phone] Care Team Providers Care Laboratory Tester Name Role Phone Karie Valdovinos MD Primary Care Provider [phone] Reason for Visit * Reason Comments Allergy New Pt * Evaluate & Treat - Unlimited Visits (Within 30 days (routine)) - Pending Review Specialty Diagnoses / Procedures Referred By Contac t Referred To Contact Allergy & Immunology Diagnoses Allergic reaction, sequela Karie Valdovinos MD [address] [place] [address] Referral ID Status Reason Start Date Expiration Date Visits Requested Visits Authorized [id number] Pending Review Specialty Services Required 11/12/[phone] Encounter Details Date Type Department Care Team (Late st Contact Info) Description 11/13/2023 9:00 AM EST Office Visit Allergy/Immunology [facility] [place] [address] [facility] [place] [address] Torsten Blake MD 200 [place] [address] Mast cell activation syndrome (HCC)*; Flushing; Angioedema, initial encounter Allergies Active Allergy Reactions Criticality Noted Date Comments Meperidine Hives,Rash High 07/12/2023 documented as of this encounter (statuses as of 11/13/2023) Medications Medication Sig Dispensed Refills Start Date End Date Status Eliquis 5 MG Oral Tablet Take 1 Tablet by mouth in the morning and 1 Tablet before bedtime. 0 07/05/2023 Active ARIPiprazole 10 MG Oral Tablet (Abilify) Take 1 Tablet by mouth in the morning. 0 07/05/2023 Active buPROPion HCl ER (XL) 300 MG Oral Tablet Extended Release 24 Hour (Wellbutrin XL) Take 1 Tablet by mouth in the morning. 0 07/05/2023 Active buPROPion HCl ER (XL) 150 MG Oral Tablet Extended Release 24 Hour (Wellbutrin XL) Take 1 Tablet by mouth in the morning. 0 07/05/2023 Active Corlanor 5 MG Oral Tablet Take 0.5 Tablets by mouth in the morning and 0.5 Tablets before bedtime. 0 07/08/2023 Active Ondansetron 4 MG Oral Tablet Disintegrating (Zofran) Place 1 Tablet on tongue every 8 hours as needed. 0 05/24/2023 Active QUEtiapine Fumarate 100 MG Oral Tablet (SEROquel) Take 1 Tablet by mouth at bedtime. 0 07/05/2023 Active Sertraline HCl 25 MG Oral Tablet (Zoloft) Take 1 Tablet by mouth at bedtime. 0 07/05/2023 Active Cephalexin 250 MG Oral Capsule (Keflex) [...] the morning. 90 Tablet 3 09/20/2023 Active guanFACINE HCl ER 3 MG Oral Tablet Extended Release 24 Hour Take 1 Tablet by mouth every morning. 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 Bipolar 1 disorder 07/16/2023 JILL (generalized anxiety disorder) 07/16/2023 Hydronephrosis 07/12/2023 Recurrent UTI (urinary tract infection) 07/12/20 23 POTS (postural orthostatic tachycardia syndrome) 07/12/2023 documented as of this encounter (statuses as of 11/13/2023) Immunizations Name Administration Dates Next Due Seasonal [...] Sign Reading Time Taken Comments Blood Pressure 110/80 11/13/2023 8:53 AM EST Pulse 85 11/13/2023 8:53 AM EST Temperature 36.2 C (97.1 F) 11/13/2023 8:53 AM ES T Respiratory Rate 16 11/13/2023 8:53 AM EST Oxygen Saturation - - Inhaled Oxygen Concentration - - Weight 84.9 kg (187 lb 3.2 oz) 11/13/2023 8:53 A M EST Height 172.7 cm (5' 8") 11/13/2023 8:53 AM EST Body Mass Index 28.46 11/13/2023 8:53 AM EST documented in this encounter Progress Notes * Torsten Blake MD - 11/13/2023 8:57 AM EST REASON FOR VISIT: Chief Complaint Patient presents with Allergy New Pt HPI: Nolvia is a pleasant 23-year-old female who presents to our office as a new patient after being referred by Karie Valdovinos MD for initial consultation of 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 Prior to moving here she lived in [facility]. 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 When asked about how shewas diagnosed, she can not recall exactly what type of testing was performed and she was not able to follow up with a neurologist. She does not have the results of her testing. From a clinical symptom standpoint, she has had nausea with associated emesis for several years now. She did have her gallbladder removed 2 years ago. This did improve her nausea and emesis but she still continues to have these symptoms. She states that she has nausea on most days and this will last throughout the day. She still has emesis but this occurs once per month without any specific trigger. She has had a full Gastroenterology workup which was unremarkable per her history. Upon further questioning, she also experiences flushing 1-2 times per week. The facial flushing will generally occur for only a few minutes up to an hour and will resolve without any significant intervention. Finally she does get swelling of her hands and feet that is more gravity dependent. She states that if she was standing for a long period of time or takes a longer shower, the swelling will occur. From a mast cell activation standpoint, she has been on Benadryl as needed in the past but is unsure if this is helpful. She will occasionally take Claritin but she was unsure if this is also helpful. Triggers do include alcohol and vinegar but she tends to avoid these items and will continue to get symptoms without any other specific trigger that she encounters. Also of note, the patient does have a history of POTS. REVIEW OF SYSTEMS Skin: swelling episodes Eyes: negative Ears/Nose/Throat: ear fullness Bilateral, ear ringing Respiratory: History of bronchial asthma Cardiovascular: negative Gastrointestinal: vomiting, nausea Genitourinary: negative and kidney disease Musculoskeletal: pt denies significant joint pain or stiffness Neurologic: negative Psychiatric: negative Hematologic/Lymphatic/Immunologic: negative Endocrine: negative Constitutional: none No past medical history on file. No past surgical history on file. Current Outpatient Medications Medication Sig Dispense Refill Eliquis 5 MG Oral Tablet Take 1 Tablet by mouth in the morning and 1 Tablet before bedtime. ARIPiprazole 10 MG Oral Tablet (Abilify) Take 1 Tablet by mouth in the morning. buPROPion HCl ER (XL) 300 MG Oral Tablet Extended Release 24 Hour (Wellbutrin XL) Take 1 Tablet by mouth in the morning. buPROPion HCl ER (XL) 150 MG Oral Tablet Extended Release 24 Hour (Wellbutrin XL) Take 1 Tablet by mouth in the morning. Corlanor 5 MG Oral Tablet Take 0.5 Tablets by mouth in the morning and 0.5 Tablets before bedtime. Ondansetron 4 MG Oral Tablet Disintegrating (Zofran) Place 1 Tablet on tongue every 8 hours as needed. QUEtiapine Fumarate 100 MG Oral Tablet (SEROquel) Take 1 Tablet by mouth at bedtime. Sertraline HCl 25 MG Oral Tablet (Zoloft) Take 1 Tablet by mouth at bedtime. Cephalexin 250 MG Oral Capsule (Keflex) Take 1 Capsule by mouth in the morning. For UTI suppression. 30 Capsule 2 Aspirin 81 MG Oral Tablet Delayed Release (Aspirin 81) Take 1 Tablet by mouth in the morning and 1 Tablet before bedtime. Midodrine HCl 5 MG Oral Tablet (Proamatine) Take 1 Tablet by mouth in the morning. 90 Tablet 3 guanFACINE HCl ER 3 MG Oral Tablet Extended Release 24 Hour Take 1 Tablet by mouth every morning. QUEtiapine Fumarate 50 MG Oral Tablet (SEROquel) TAKE 1 TABLET BY MOUTH AT BEDTIME NEEDED FOR SLEEP OR MOOD WITH 100 MG TABLET No current facility-administered medications for this visit. Allergies as of 11/13/2023 - Reviewed 11/13/2023 Allergen Reaction Noted Demerol hcl [meperidine] Hives and Rash 07/12/2023 No family history on file. Social History Socioeconomic History Marital status: Single Spouse name: Not on file Number of children: Not on file Years of education: Not on file Highest education level: Not on file Occupational History Not on file Tobacco Use Smoking status: Never Smokeless tobacco: Never Vaping Use Vaping Use: Never used Substance and Sexual Activity Alcohol use: Yes Comment: On occasion Drug use: Never Sexual activity: Not on file Other Topics Concern Not on file Social History Narrative Not on file Social Determinants of Health Financial Resource Strain: Not on file Food Insecurity: No Food Insecurity (07/08/2023) Hunger Vital Sign Worried About Running Out of Food in the Last Year: Never true Ran Out of Food in the Last Year: Never true Transportation Needs: Not on file Physical Activity: Not on file Stress: Not on file Social Connections: Not on file Intimate Partner Violence: Not on file Housing Stability: Not on file Social history: The patient reports that she lives in an apartment with electric heating system in addition to air conditioning. The home has no issues with cockroaches. She does use scented candles within her apartment. There are cats within her apartment. 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 BP 110/80 | Pulse 85 | Temp 36.2 C (97.1 F) | Resp 16 | Ht 1.727 m (5' 8") | Wt 84.9 kg (187 lb3.2 oz) | BMI 28.46 kg/m | BSA 2.02 m PHYSICAL EXAM: GENERAL: No acute distress. HEAD AND FACE: No sinus tenderness noted EYES: EOMI, PERRLA; Conjunctiva- normal; Eyelids - normal EARS: TM's - clear NOSE:Pale mucosa; mild turbinate edema; no nasal polyps or mucopus; Septum - normal OROPHARYNX: Teeth and gums - normal; Mild erythema, mild cobblestoning; No lesions, exudates NECK: Supple; No thyroid enlargment or cervical adenopathy RESPIRATORY: Clear to A and P; No wheezes; Good air movement bilaterally; No intercostal retractions or accessory muscle use CARDIOVASCULAR: RRR; No gallops, rubs, clicks, or murmurs. GASTROINTESTINAL: Abdomen is soft and non-tender; BS - normal; No palpable masses or organomegaly LYMPHATIC: No significant adenopathy noted MUSCULOSKELETAL: No significant joint swelling, tenderness EXTREMITIES: No cyanosis, clubbing or peripheral edema SKIN: No evidence atopic dermatitis; no urticaria or angioedema; Normal skin quality NEUROLOGIC/PSYCHIATRIC: Mental status - Oriented x's 3; Mood and affect - normal OBJECTIVE DATA: ASSESSMENT AND PLAN: ICD-10-CM 1. Mast cell activation syndrome (HCC) D89.40 2. Flushing R23.2 3. Angioedema, initial encounter T78.3XXA In summary, Nolvia presents with a possible diagnosis of mast cell activation syndrome. Unfortunately we do not have the results a previous testing that was done by her neurologist in [facility]. We have asked her to obtain these results and she will forward these results to our office for further evaluation. In addition, we will be checking a baseline tryptase level as this is the standard marker for mast cell activation syndrome, which is a fairly umbrella term that describes a multitude of clinical symptoms as opposed to a specific diagnosis. Mast cell activation syndrome can present in a variety of ways which includes systemic and cutaneous mastocytosis, allergic disorders, phy sical urticaria, idiopathic anaphylaxis, idiopathic urticaria, idiopathic angioedema, and other associated primary and secondary mast cell disorders. Hence in addition to obtaining a baseline tryptase level, we will also be checking a comprehensive metabolic panel and a TSH. In regards to her angioedema of the hands and feet, this could be related to her mast cell activation. We currently have low suspicion for other underlying disorders that can lead to recurrent angioedema such as hereditary angioedema since she reports that her angioedema is more gravity dependent. From a pharmacotherapy standpoint, the mainstay of therapy is to treat the episodes of symptoms that are due to mast cell telegraph equipment maintainer release. Typically these symptoms will improve and response to therapies that target mast cells such as antihistamines, cromolyn, and anti leukotriene agents. For now, we have asked her to start fexofenadine 180 mg daily and to monitor for any improvement in the frequency of her symptoms of nausea, emesis, angioedema, or flushing. Consideration towards a more aggressive regimen may be warranted should she have increased frequency or severity of symptoms in the future. We also advised her to avoid her known triggers of alcohol and vinegar. Thank you very much for allowing myself to participate in the care of your patient. Please do not hesitate to contact our office should you have any questions or concerns. Torsten Blake MD Allergy/Immunology I spent a total of 40-54 minutes (exact time 49 mins) on the date of service in preparation, delivery, and documentation of the care provided to Nolvia Abdullahi excluding any time spent in the performance of separately billed services. (This note was completed using the dictation program Fluency Direct. As such, there may be misspellings, word substitutions, or other variations that should not change the essence of the clinical content of this encounter note.If there is need for further clarification, please direct questions to the provider listed above.) PCP: KAR[place] [address] [phone] documented in this encounter Nursing Notes * Laura Kebede LPN - 11/13/2023 8:52 AM EST The pt has been properly identified by confirmation of name and date of . Pt presents as a new pt for Mast Cell Activation syndrome. Pt states her neurologist diagnosed her just before moving to the area. documented in this encounter Plan of Treatment Upcoming Encounters Date Type Department Care Team (Late st Contact Info) Description 11/13/2023 1:30 PM EST Telemedicine Psychiatry, [place] [address] [place] [address] Olena Padilla CRNP [address] [place] [address] 01/03/2024 7:15 AM EST Cardiac Studies Cardiac Studies, [facility] [address] [facility] [place] [address] 01/17/2024 8:30 AM EST Office Visit Allergy/Immunology [facility] [address] [place], [place] [address] Terrie Julio PA-C [address] [place], [place] [address] 05/12/2024 8:00 AM EDT Office Visit [facility] [address] [place], [place] [address] Karie Valdovinos MD [address] [place], [place] [address] 07/14/2024 1:00 PM EDT Office Visit [facility] [address] [place] [address] Karie Valdovinos MD [address] [place] [address] Pending Results Name Type Priority Associated Diagnoses Date /Time COMPREHENSIVE METABOLIC PANEL Lab Routine Mast cell activation syndrome (HCC) 11/13/2023 9:38 AM EST TSH WITH FREE T4 IF INDICATED Lab Routine Mast cell activation syndrome (HCC) 11/13/2023 9:38 AM EST TRYPTASE Lab Routine Mast cell activation syndrome (HCC) 11/13/2023 9:38 AM EST Scheduled Orders Name Type Priority Associated Diagnoses Orde r Schedule COMPREHENSIVE METABOLIC PANEL Lab Routine Mast cell activation syndrome (HCC) Expected: 11/13/2023, Expires: 11/13/2024 TSH WITH FREE T4 IF INDICATED Lab Routine Mast cell activation syndrome (HCC) Expected: 11/13/2023, Expires: 11/13/2024 TRYPTASE Lab Routine Mast cell activation syndrome (HCC) Expected: 11/13/2023, Expires: 11/13/2024 Health Maintenance Due Date Last Done Comments [...] as of this encounter Visit Diagnoses Diagnosis Mast cell activation syndrome (HCC)- Primary Flushing Angioedema, initial encounter documented in this encounter Care Teams Laboratory Tester Relationship Specialty Start Date End Date Karie Valdovinos MD [address] [place] [address] PCP - General Family Medicine 07/12/23 documented as of this encounter
--- OUTSIDE RECORDS SUMMARY | 2023-12-07 00:30 | External Medical Summary | Summary of Care ---
Author Name Unknown Organization [facility] Address [address] [place] [address] Phone [phone] Care Team Providers Care Heel Sewer Name Role Phone Karie Valdovinos MD Primary Care Provider [phone] Reason for Visit * Reason Comments Outpatient Testing Encounter Details Date Type Department Care Team (Late st Contact Info) Description 11/13/2023 10:00 AM EST Laboratory Laboratory [facility] [address] [place] [phone] [facility] [address] [place] [address] Mast cell activation syndrome (HCC) Allergies Active Allergy Reactions Criticality Noted Date [...] on file documented as of this encounter Plan of Treatment Upcoming Encounters Date Type Department Care Team (Late st Contact Info) Description 11/13/2023 1:30 PM EST Telemedicine Psychiatry, [place] [address] [place] [address] Olena Padilla CRNP [address] [place] [address] 01/03/2024 7:15 AM EST Cardiac Studies Cardiac Studies, [facility] [address] [facility] [place] [address] 01/17/2024 8:30 AM EST Office Visit Allergy/Immunology [facility] [address] [place] [address] Terrie Julio PA-C [address] [place] [address] 05/12/2024 8:00 AM EDT Office Visit [facility] [address] [place] [address] Karie Valdovinos MD [address] [place] [address] 07/14/2024 1:00 PM EDT Office Visit [facility] [address] [place] [address] Karie Valdovinos MD [address] [place] [address] Pending Results Name Type Priority Associated Diagnoses Date /Time COMPREHENSIVE METABOLIC PANEL Lab Routine Mast cell activation syndrome (HCC) 11/13/2023 9:38 AM EST TSH WITH FREE T4 IF INDICATED Lab Routine Mast cell activation syndrome (HCC) 11/13/2023 9:38 AM EST TRYPTASE Lab Routine Mast cell activation syndrome (HCC) 11/13/2023 9:38 AM EST Health Maintenance Due Date Last Done Comments [...] Visit Diagnoses Diagnosis Mast cell activation syndrome (HCC) documented in this encounter Care Teams Heel Sewer Relationship Specialty Start Date End Date Kaire Valdovinos MD [address] [place] [address] PCP - General Family Medicine 07/12/23 documented as of this encounter
--- OUTSIDE RECORDS SUMMARY | 2023-12-07 00:30 | External Medical Summary ---
Author Name Unknown Address Unknown Organization [facility] [place] [address] [place] [address] Laboratory Report Ordering Provider Test Date Status KLAUS GARCIA 11/01/2023 12:45:54 Final Observation Date Value Abnormality Reference (Units ) Status WBC, Total 11/01/2023 12:45:54 7.80 4.00-10.8 0 (K/uL) Final RBC 11/01/2023 12:45:54 4.57 3.85-5.15 (M/uL) Final Hemoglobin 11/01/2023 12:45:54 13.8 12.0-15.3 (g/dL) Final HCT 11/01/2023 12:45:54 42.7 36.0-45.2 (%) Final MCV 11/01/2023 12:45:54 93.4 81.5-97.5 (fL) Final MCH 11/01/2023 12:45:54 30.2 27.0-34.0 (pg) Final MCHC 11/01/2023 12:45:54 32.3 32.0-36.0 (g/dL) Final RDW 11/01/2023 12:45:54 13.1 11.5-15.5 (%) Final Platelets 11/01/2023 12:45:54 262 140-400 (K /uL) Final MPV 11/01/2023 12:45:54 9.5 6.6-11.1 ( fL) Final Performing Location [facility] [place] [place] [address]
--- OUTSIDE RECORDS SUMMARY | 2023-12-07 00:30 | External Medical Summary | Summary of Care ---
Author Name Unknown Organization [facility] Address [address] [place] [address] Phone [phone] Care Team Providers Care Education Technician Name Role Phone Karie Valdovinos MD Primary Care Provider [phone] Reason for Visit * Reason Comments Outpatient Testing Encounter Details Date Type Department Care Team (Late st Contact Info) Description 11/01/2023 1:00 PM EST Laboratory Laboratory [facility] [address] [place] [phone] [facility] [address] [place] [address] Hematuria, unspecified type Allergies Active Allergy Reactions Criticality Noted Date Comments Meperidine Hives,Rash High 07/12/2023 documented as of this encounter (statuses as of 11/01/2023) Medications Medication Sig Dispensed Refills Start Date [...] as of this encounter (statuses as of 11/01/2023) Active Problems Problem Noted Date Diagnosed Date 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 Bipolar 1 disorder 07/16/2023 JILL (generalized anxiety disorder) 07/16/2023 Hydronephrosis 07/12/2023 Recurrent UTI (urinary tract infection) 07/12/20 POTS (postural orthostatic tachycardia syndrome) 07/12/2023 documented as of this encounter (statuses as of 11/01/2023) Social History Tobacco Use Types Packs/Day Years [...] Description 11/13/2023 1:30 PM EST Telemedicine Psychiatry, [place] [address] [place] [address] Olena Padilla CRNP [address] [place] [address] 01/03/2024 7:15 AM EST Cardiac Studies Cardiac Studies, [facility] [address] [facility] [place] [address] 07/14/2024 1:00 PM EDT Office Visit Family Practice [facility] [address] [facility] [place] [address] Karie Valdovinos MD [address] [facility] [place] [address] Health Maintenance Due Date Last Done Comments [...] Not on filedocumented as of this encounter Procedures Procedure Name Priority Date/Time Associated Diagnosis Comments CBC Routine 11/01/2023 12:45 PM EST Hematuria, unspecified type documented in this encounter Results * CBC (11/01/2023 12:45 PM EST) WBC 7.80 4.00 - 10.80 K/uL 11/01/2023 1:00 PM EST [facility] 56- RBC 4.57 3.85 - 5.15 M/uL 11/01/2023 1:00 PM [facility] 56- HGB 13.8 12.0 - 15.3 g/dL 11/01/2023 1:00 PM EST [facility] 56- HCT 42.7 36.0 - 45.2 % 11/01/2023 1:00 PM [facility] 56- MCV 93.4 81.5 - 97.5 fL 11/01/2023 1:00 PM EST [facility] 56- MCH 30.2 27.0 - 34.0 pg 11/01/2023 1:00 PM [facility] 56- MCHC 32.3 32.0 - 36.0 g/dL 11/01/2023 1:00 PM [facility] 56- RDW 13.1 11.5 - 15.5 % 11/01/2023 1:00 PM EST [facility] 56- PLT 262 140 - 400 K/uL 11/01/2023 1:00 PM [facility] 56- MPV 9.5 6.6 - 11.1 fL 11/01/2023 1:00 PM [facility] 56-02 Blood Venous blood specimen / Unknown Venipuncture / Unknown 11/01/2023 12:45 PM EST 11/01/2023 12:45 PM EST Asia Herrera DO LAB BLOOD ORDER SHAYLEE [facility] [address]- [address] [place], [place] [id number] documented in this encounter Visit Diagnoses Diagnosis Hematuria, unspecified type documented in this encounter Care Teams Education Technician Relationship Specialty Start Date End Date Karie Valdovinos MD [address] [place] [address] PCP - General Family Medicine 07/12/23 documented as of this encounter
--- OUTSIDE RECORDS SUMMARY | 2023-12-07 00:30 | External Medical Summary ---
Author Name Unknown Address Unknown Organization [facility] [place] [address] Laboratory Report Ordering Provider Test Date Status ALIZA HANSEN 11/13/2023 09:38:00 Final Observation Date Value Abnormality Reference (Units ) Status BUN 11/13/2023 09:38:00 16 6-20 (mg/dL) Final Creatinine 11/13/2023 09:38:00 0.8 0.5-1.0 (mg/dL) Final Glomerular filtration rate/1.73 sq M.predicted [Volume Rate/Area] in Serum, Plasma or Blood by Creatinine-based formula (CKD-EPI) 11/13/2023 09:38:00 >90 >=60 (mL/min) Final eGFR is calculated based on the CKD-EPI 2020 equation SODIUM 11/13/2023 09:38:00 140 135-146 (m mol/L) Final Potassium 11/13/2023 09:38:00 4.2 3.5-5.1 (m mol/L) Final Cl 11/13/2023 09:38:00 104 98-107 (mm ol/L) Final CO2 11/13/2023 09:38:00 27 22-32 (mmo l/L) Final Anion gap 11/13/2023 09:38:00 9 7-15 (mmol /L) Final Glucose 11/13/2023 09:38:00 94 70-120 (mg /dL) Final Albumin 11/13/2023 09:38:00 4.6 3.8-5.0 (g /dL) Final AST (Aspartate aminotransferase) 11/13/2023 09:38:00 16 10-35 (U/L) Final Alk Phos 11/13/2023 09:38:00 77 35-130 (U/ L) Final Bilirubin, Total 11/13/2023 09:38:00 0.3 <=1 .2 (mg/dL) Final Calcium 11/13/2023 09:38:00 9.7 8.4-10.2 ( mg/dL) Final Protein 11/13/2023 09:38:00 7.1 6.0-8.3 (g /dL) Final ALT (Alanine aminotransferase) 11/13/2023 09:38:00 14 10-35 (U/L) Final Performing Location [facility] [address] [place] [address]
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
--- OUTSIDE RECORDS SUMMARY | 2023-12-07 00:30 | External Medical Summary | Continuity of Care Document ---
Author Name Unknown Organization [facility] Address [address] [place] [id number] Care Team Providers Care Junior Qa Analyst Name Role Phone Karie Valdovinos Primary Care Physician [phone] [id number] Date[facility]s): 10/29/23 - 10/29/23 [facility] [address] [place] [id number] [phone] Encounter Diagnosis Preop testing(Discharge Diagnosis) - 10/29/23 Hydronephrosis, right(Discharge Diagnosis) - 10/29/23 Discharge Disposition: Home or Self Care Attending Physician: DO Champion William Karl Admitting Physician: DO Champion William Karl Allergies, Adverse Reactions, Alerts Substance Reaction Severity Status Demerol rash hives Severe Active Functional Status 10/29/23 Neurological Symptoms None ADLs Independent Facial Symmetry Symmetric Gait Steady Swallowing Difficulty None Level of Consciousness Neuro Alert Hallucinations Present None Speech Pattern Clear 10/29/23 History of Fall in Last 3 Months [...] PO, bid Start Date: 09/09/23 Status: Ordered Eliquis 5 mg oral tablet Start: 09/09/23 10:18:00 EDT, 1 tab, PO, bid Start Date: 09/09/23 Status: Ordered Keflex Start: 09/09/23 10:21:00 EDT, 125 mg =, PO, Daily, Used as a prophylactic Start Date: 09/09/23 Status: Ordered Levaquin 500 mg oral tablet Start: 10/29/23 9:01:00 EST, 1 tab, PO, q24h, Disp# 7 tab, Take 1 tablet daily starting tomorrow morning., Pharmacy: [facility]/pharmacy #[id number] Start Date: 10/29/23 Status: Ordered midodrine Start: 09/09/23 10:17:00 EDT, 5 mg =, PO, Daily Start Date: 09/09/23 Status: Ordered Percocet 5 mg-325 mg oral tablet Start: 10/29/23 9:16:00 EST, 1 tab, PO, q6h, Disp# 12 tab, Refills: 0, PRN: as needed for pain, Pharmacy: [facility]/pharmacy #[id number] Start Date: 10/29/23 Status: Ordered Percocet 5/325 Start: 10/29/23 9:18:00 EST, 1 tab, PO, q4h, Refills: 0, PRN: see order comments Start Date: 10/29/23 Status: Ordered SEROquel Start: 09/09/23 10:20:00 EDT, 100 mg =, PO, qhs Start Date: 09/09/23 Status: Ordered Mental Status 10/29/23 Communication Barrier Present No Primary Language Lao Problem List Condition Confirmation Course Effective Dates Status Health St atus Informant Hydronephrosis, right Confirmed Active Recurrent urinary tract infection Confirmed Active Diagnosis Diagnosis Type Effective Dates Health Status Cl inical Service Informant Preop testing Discharge Diagnosis 10/29/23 Non-Specified Hydronephrosis, right Discharge Diagnosis 10/29/23 Procedures Procedure Date Related Diagnosis Body Site [...] per pt Results Laboratory List Name Date Prothrombin Time/INR and PTT. (PT (with INR) and PTT.) 10/29/23 Most recent to oldest [Reference Range]: 1 Beta HCG Ref Range [negative] (10/29/23 5:53 AM) Beta hCG Ql Negative 1 (10/29/23 5:53 AM) INR [0.9-1.1] 1.1 2 (10/29/23 6:20 AM) PT [12.0-14.2 seconds] 14.0 seconds (10/29/23 6:20 AM) PTT [23-35 seconds] 32 seconds (10/29/23 6:20 AM) 1Result Comment: Performed at: [facility], [address] [place], [place], [address] 2Interpretive Data: Suggested therapeutic range for low-intensity Coumadin therapy for venous thromboembolism is INR 2.0-3.0 (ex: atrial fibrillation, history of TIA/stroke). For high risk patients, the suggested therapeutic range is INR 2.5-3.5 (ex: mechanical prosthetic valves). Vital Signs Most recent to oldest [Reference Range]: 1 2 3 Height 175.26 cm (10/29/23 5:49 AM) Patient Weight 83.9 kg (10/29/23 5:49 AM) Body Mass Index 27.31 kg/m2 (10/29/23 5:49 AM) Temperature [36.5-37.9 DegC] 36.8 DegC (10/29/23 10:16 AM) 36.8 DegC (10/29/23 10:15 AM) 36.8 DegC (10/29/23 8:55 AM) Heart Rate 83 bpm (10/29/23 10:16 AM) 79 bpm (10/29/23 10:15 AM) 83 bpm (10/29/23 9:30 AM) Respiratory Rate 21 br/min (10/29/23 10:16 AM) 15 br/min (10/29/23 10:15 AM) 21 br/min (10/29/23 9:30 AM) Blood Pressure 130/85mmHg (10/29/23 10:16 AM) 127/86mmHg (10/29/23 10:15 AM) 130/83mmHg (10/29/23 9:30 AM) Mean Blood Pressure 100 mmHg (10/29/23 10:15 AM) 97 mmHg (10/29/23 9:30 AM) 105 mmHg (10/29/23 9:15 AM) Cuff Pulse Pressure 41 mmHg (10/29/23 10:15 AM) 47 mmHg (10/29/23 9:30 AM) 57 mmHg (10/29/23 9:15 AM) BP Location # 1 Left Arm (10/29/23 10:15 AM) Left Arm (10/29/23 9:30 AM) Left Arm (10/29/23 9:15 AM) Social History Social History Type Response Smoking Status Never smoked cigaret 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 Sex Female Implantable Device List Procedure Provider Procedure Date Device Type Site Unknown Unknown 10/29/23 Unknown Unknown Device Identifier Serial Number Lot or Batch Number Manufacturing Date Expiration Date Distinct Identification Code MRI Safety Implantable Status Assigning Authority Unknown Unknown [id number] Unknown 04/15/26 Unknown Unknown Active Unknown History and physical note * DO Champion William Karl: PERFORM Event Display: H&P Authored Date: [id number] Name:SULEMAN HILL Patient Number:[id number] :2000 Date of Service:10/29/2023 History of Present Illness This 23-year-old female hasa history of urologic problems since infancy. 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 She was then onprophylactic antibiotics for some time and ultimately had a reimplantin [place]. She was fine until 2018when she started developing urinary tract infections. Recent CT scan showedhydronephrosis of the upper pole moiety of the kidney on the right. When she had a renal Lasix washout scan she developedright flank pain. The patient is here today forcystoscopy, right retrograde, right ureteroscopywithright ureteral stent insertion. Review of Systems Review of systems:The patient has no symptoms referable to the head and neck, EENT system, cardiovascular system, respiratory system, gastrointestinal system, neurological system, musculoskeletal system or lymphatic system. Physical Exam Vitals & Measurements T:36.4C HR:79(Monitored) RR:17 BP:127/75 SpO2:97% Oxygen Therapy:Room air WT:83.9kg WT:83.900kg(Dosing) Physical examination: Heart: Regular rate and rhythm with no murmurs thrills or rubs. Lungs: Clear and aerated with no rales or rhonchi. Abdomen:The abdomen is soft with no palpable masses, tenderness, hernia or hepatosplenomegaly. Assessment/Plan 1.Hydronephrosis, right Plan: 1. The patient is here today for cystoscopy, right retrograde pyelogram,right ureteroscopy, dilatation of right ureter, insertion of right ureteral stent. Consent was signed in the office. Problem List/Past Medical History Ongoing Hydronephrosis, right Recurrent urinary tract infection Procedure/Surgical History REIMPLANT URETER IN BLADDERCeliac arteryCholecystectomyIliac artery embolusIliac artery stent Medications Inpatient cefTRIAXone(Rocephin), 1000 mg= 50 mL, IV, TECHNICAL CLERK Lactated Ringers Injection 1,000 mL(LR 1,000 mL), 1000 mL, IV Fluid Home apixaban(Eliquis 5 mg oral tablet), 5 mg= 1 tab, PO, bid ARIPiprazole(Abilify), 10 mg, PO, qhs aspirin, 81 mg, PO, Daily buPROPion, 450 mg, PO, Daily cephalexin(Keflex), 125 mg, PO, Daily ivabradine(Corlanor), 2.5 mg, PO, bid midodrine, 5 mg, PO, Daily QUEtiapine(SEROquel), 100 mg, PO, qhs Allergies Demerol(Severe)rash, hives Social History Smoking Status Never smoked cigarettes Electronic Signature on File Electronically Reviewed/Signed by: Ministerio Champion D.O. Author Signature Dt/Tm:10/29/2023 06:53 AM Urology [facility] Surgical operation note * DO Champion William Karl: PERFORM Event Display: .Operative Report Authored Date: [id number] Name:SULEMAN HILL Patient Number:[id number] :2000 Date of Service:10/29/2023 Preoperative Diagnosis Right hydronephrosis Postoperative Diagnosis Same In Room Time 10/29/23 07:27:00 Operation Cystoscopy,right retrograde pyelogram,right ureteroscopyand renoscopy,dilatation of ureteral strictureand insertion of right ureteral stent Surgeon(s) DO Akira, Ministerio Gimenez (Physician - Primary) Marketing Operations Specialist(s) None Anesthesia General DO Norman Glenn L (Primary Attending) BEATRIS Londono Adam Nathaniel (RESEARCH LEADER) BEATRIS Bobby Daniel (RESEARCH LEADER) Estimated Blood Loss Minimal Lines, Tubes, Drains, Tourniquets None Specimen(s) None Implants/Devices: 4.8 Libyan, 28 cm double-J stent Findings Urethroscopy was negative. Cystoscopy revealed the bladder wall to be basically pinkish-barry in color with a dull lusterand normal vascularity. There was cross trigonal reimplantation of the patient's ureters many years ago. Both the portions of the ureters across the trigonehad lifted upand were above the mucosa but easily visualized and identified. No tumors or calculi of the bladder were noted. On ureteroscopythere was noted to be some narrowingat the entrance to the upperpole moiety. I was unable to locate the lower pole moietydespite injecting contrastdifferent areas along theureterand looking for the opening which I could not find. There were no other abnormalities noted. Complications None Indication for Surgery Right hydronephrosis Technique With the patient in the dorsal lithotomy position and under satisfactory general anesthesia,the genitalia were prepped with Betadine and draped with sterile drapes in the usual fashion. Cystoscopy urethroscopy was performed with a22.5 Libyan Olympus cystoscope utilizing the 30 and 70 degree angle lens systems. Following satisfactory visualization of all aspects of the bladder and urethraI had to usean oorewb05 Glidewireto be able to access theright ureteral orifice which was on the left side of the trigone. I advanced theguidewire part way up the ureterand then passed a5 Libyan open-ended catheter over the guidewirepart way up the ureter. I then injected contrast in a retrograde fashion which showedhydronephrosis to the upper pole moiety of the right kidney. There not appear to be any severe stricture on the retrograde. I then put the guidewire through theopen-ended catheter and all the way up into theupper polemoietyand removed theopen-ended catheter. I then passedthe dual-lumen catheterover the guidewire and advanced it all the way up into the renal pelvis so I dilated the ureter all the way long up to that point. I then placed a0.035 sensor wire through the otherlumenand then remove the dual-lumen catheter. I then c urled the distal end of the Glidewire in its storage container and clipped it to the drape. Over the sensor wire I passeda one-step dilatorand dilated the entire ureterall the way up to the upper pole#12 Libyan. This was left in for several minutes and was then removed. I then tried to pass thedigital flexible ureteroscope over the guidewire but because of the angulation of theureteral orifice I was unable to get itinto the ureter. I then used the#14 Libyan #16 Frenchindividual John dilatorsto dilate the ureterabout a third of the way up but I still could not get theureteroscope over the guidewire. I then passed a12-14 Xzwfms15 cmureteral access wasserman thover the guidewire and advanced it all the way up into theupper collecting system which essentially dilated the wholeureter to #14 Libyan. I then removed the obturator and used thedigitalflexible ureteroscope to performureteroscopy and renoscopy with the findings as noted above. I examined the ureter carefully on the way down and injected contrast in several areasbut none of the contrast went intothe lower pole moiety and I could not see the opening to it at any point. Kaylen removed theureteroscope and ureteral access sheath. I did not have a 6 Frenchstent so I had to put a 4.8 Guaxyz51 cm double-J stentover the safety wire positioning the proximal in the upper collecting system and distal in the bladder. The bladder was a partially full and the scope was removed. The patient tolerated procedure well and was sent to recovery room in satisfactory condition. ZAY Huffan Electronic Signature on File Electronically Reviewed/Signed by: Ministerio Champion D.O. Author Signature Dt/Tm:10/29/2023 09:13 AM Urology [facility] Discharge instructions * DO Champion William Karl: PERFORM Event Display: Patient Discharge Instructions Authored Date: [id number] SULEMAN HILL :2000 Visit Date:10/29/2023 Patient Discharge Instructions [facility] For questions or further information, call: . Date of Admission:10/29/2023 Date of Discharge:10/29/2023 Physician:DO Champion William Karl Service:Urology Discharge Disposition: . Advance Directive:None Reason for Hospitalization Hydronephrosis, right Your Diagnoses Hydronephrosis, right Preop testing My [employer] Patient Portal: [facility] [employer] makes it easy for you to manage your health information online. [employer] [place] [employer] is a free service that provides you instant, secure access to your medical information anytime, anywhere. Sign in or set up your account today at [email or web address] Thank you for allowing us to assist you with your healthcare needs. If you need additional community resources, [facility] [employer] can help at https://www.pa211.org. 211 can assist you in connecting with social programs based on your unique needs and locations. 211 is an anonymous search that can help you locate resources for: Food, Housing, Transportation, Goods, Education and Healthcare. Medications What How Much When Instructions Next Dose New acetaminophen-oxycodone (Percocet 5 mg-325 mg oral tablet) 1 tab(s) by mouth Every 6 hours as needed for as needed for pain Pickup at [facility]/pharmacy #[id number] New acetaminophen-oxycodone (Percocet 5/ 325) 1 tab(s) by mouth Every 4 hours as needed for see order comments New levoFLOXacin (Levaquin 500 mg oral tablet) 1 tab(s) by mouth Every 24 hours Take 1 tablet daily starting tomorrow morning. Pickup at [facility]/pharmacy #[id number] Changed ARIPiprazole (Abilify) 10 Milligram by mouth At bedtime Unchanged apixaban (Eliquis 5 mg oral tablet) 1 tab(s) by mouth 2 times daily Unchanged aspirin 81 Milligram by mouth Once daily Unchanged buPROPion 450 Milligram by mouth Once daily Unchanged cephalexin (Keflex) 125 Milligram by mouth Once daily Used as a prophylactic Unchanged ivabradine (Corlanor) 2.5 Milligram by mouth 2 times daily Unchanged midodrine 5 Milligram by mouth Once daily Unchanged QUEtiapine (SEROquel) 100 Milligram by mouth At bedtime Pharmacy Information [facility]acy #[id number]: [address] [place], [place] [id number] [phone] Allergies Demerol(Severe)rash, hives What to do next Instructions From Your Doctor Rest at home today and drink plenty of fluids. Start your antibiotics tomorrow morning. If you notice the following symptoms If you develop severe painor fever with or without chillsplease call the office or go to the emergency room. Contact us at If unable to contact your physician and you feel it is an emergency, go to the nearest Emergency Room or call 911 Diet Instructions Resume normal diet for you. Activity Instructions Activity as tolerated. Follow-Up Appointments You Need to Schedule the Following Appointments Please call the officeand make an appointment to see me in 4 to 5 weeks. Tell them you need to havea kidney scan a week before your office visit. The Following Services Have Been Arranged for You No Post-Acute Placement(s) Listed No Post-Acute Service(s) Listed Tests Pending None Procedures Performed Cystoscopy, right retrograde, right ureteroscopy, dilatation of right ureteral stricture, insertionof right ureteral stent Special Instructions Common Emergency Awareness Tips Call 911 immediately if: experiencing any of the warning signs and symptoms of stroke: B.E. F.A.S.T. Balance: is there trouble with walking or coordination Eyes: is there double vision or visual loss Face: Smile, do both sides of face move equally Arm: Raise arms, do both arms move equally Speech: Is speech slurred or inappropriate Time: Time is critical, call 911 immediately Heart Attack Signs Chest discomfort: Most heart attacks involve discomfort in the center of the chest and lasts more than a few minutes, or goes away and comes back. It can feel like uncomfortable pressure, squeezing, fullness or pain. Discomfort in upper body: Symptoms can include pain or discomfort in one or both arms, back, neck, jaw or stomach. Shortness of breath: With or without discomfort. Other signs: Breaking out in a cold sweat, nausea, or lightheaded. Remember, MINUTES DO MATTER. If you experience any of these heart attack warning signs, call to get immediate medical attention! Patient Care team information Care Team Personnel Name: MD Aruna, Karie Guerra Position: Referring Member Role: Primary Care Provider Address: Address: [facility] :Family Medicine [address] [place] [address] [place] Care Team Related Persons Name: KRYSTLE HILL Address: home [id number] [place] [phone] Name: LASHONDA DÍAZ Address: home [address] [facility] [facility] [address] [place], [place] [id number]
--- OUTSIDE RECORDS SUMMARY | 2023-12-07 00:30 | External Medical Summary | Summary of Care ---
Author Name Unknown Organization [facility] Address [address] [place] [address] Phone [phone] Care Team Providers Care Photographic Equipment Technician Name Role Phone Karie Valdovinos MD Primary Care Provider [phone] Reason for Visit * Reason Onset Date Comments Advice 10/30/2023 Encounter Details Date Type Department Care Team (Late st Contact Info) Description 10/30/2023 Telephone Family Practice [facility] [address] [place] [address] Karie Valdovinos MD [address] [place] [address] Advice Allergies Active Allergy Reactions Criticality Noted Date Comments Meperidine Hives,Rash High 07/12/2023 documented as of this encounter (statuses as of 11/16/2023) Medications Medication Sig Dispensed Refills Start Date [...] as of this encounter (statuses as of 11/16/2023) Active Problems Problem Noted Date Diagnosed Date Bipolar I disorder, most rec ent episode manic, in full remission 11/13/2023 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 Would prefer he order CBC, but understand we're headed into holidays. If he can't order I have placed a lab order for CBC Asia Herrera DO * Telephone Encounter - Nolvia Wylie RN - 10/31/2023 1:45 PM EST Pt Had surgery on 10/29 at [facility]. Had surgery for right hydronephrosis. Has been having hematuriaever since surgery. Was at [facility] ER yesterday. They did a CBC but wanted her to get a repeat lab on 11/01 to make sure it is OK for her to fly home to [place] on Saturday for the [place] break. Asked her if they wanted her to have an ER follow up with provider. She said "I guess they did" Says all she wants is to repeat CBC so she leave on Saturday. * Telephone Encounter - Telma Oshea OSA - 10/30/2023 5:31 PM EST Patient calling [facility] er told her to get labs cbc scheduled for Saturday was at [facility] documented in this encounter Plan of Treatment Upcoming Encounters Date Type Department Care Team (Late st Contact Info) Description 01/03/2024 7:15 AM EST Cardiac Studies Cardiac Studies, [facility] [address] [facility] [place] [address] 01/15/2024 2:30 PM EST Telemedicine Psychiatry, [place] [address] [place] [address] Olena Padilla CRNP [address] [place] [address] 01/17/2024 8:30 AM EST Office Visit Allergy/Immunology [facility] [address] [place] [address] Terrie Julio PA-C [address] [facility] [place] [address] 05/12/2024 8:00 AM EDT Office Visit [facility] [address] [place] [address] Karie Valdovinos MD [address] [place] [address] 07/14/2024 1:00 PM EDT Office Visit [facility] [address] [place] [address] Karie Valdovinos MD [address] [place] [address] Health Maintenance Due Date Last Done Comments [...] Not on filedocumented as of this encounter Results * CBC (11/01/2023 12:45 PM EST) WBC 7.80 4.00 - 10.80 K/uL 11/01/2023 1:00 PM EST [facility]- RBC 4.57 3.85 - 5.15 M/uL 11/01/2023 1:00 PM EST [facility] 56-02 HGB 13.8 12.0 - 15.3 g/dL 11/01/2023 1:00 PM EST [facility] 56- HCT 42.7 36.0 - 45.2 % 11/01/2023 1:00 PM EST [facility] 56- MCV 93.4 81.5 - 97.5 fL 11/01/2023 1:00 PM EST [facility] 56-02 MCH 30.2 27.0 - 34.0 pg 11/01/2023 1:00 PM EST [facility] 56-02 MCHC 32.3 32.0 - 36.0 g/dL 11/01/2023 1:00 PM EST [facility] 56-02 RDW 13.1 11.5 - 15.5 % 11/01/2023 1:00 PM EST [facility] 56-02 PLT 262 140 - 400 K/uL 11/01/2023 1:00 PM EST [facility] 56-02 MPV 9.5 6.6 - 11.1 fL 11/01/2023 1:00 PM EST [facility] 56- Blood Venous blood specimen / Unknown Venipuncture / Unknown 11/01/2023 12:45 PM EST 11/01/2023 12:45 PM EST Asia Herrera DO LAB BLOOD ORDER [facility] [address] [facility] [address] documented in this encounter Visit Diagnoses Diagnosis Hematuria, unspecified type- Primary documented in this encounter Care Teams Photographic Equipment Technician Relationship Specialty Start Date End Date Karie Valdovinos MD [address] [facility] [place] [address] PCP - General Family Medicine 07/12/23 documented as of this encounter
--- OUTSIDE RECORDS SUMMARY | 2023-12-07 00:30 | External Medical Summary ---
Author Name Unknown Address Unknown Organization : Laboratory Report Ordering Provider Test Date Status ALIZA HANSEN 11/13/2023 09:38:00 Final Observation Date Value Abnormality Reference (Units ) Status Tryptase 11/13/2023 09:38:00 4.6 <11.0 (mcg /L) Final The Tryptase test, fluoresce nt enzyme immunoassay
(FEIA), measures both the Alpha and Beta forms of
Tryptase. Measuring both forms of Tryptase increases
sensitivity for the diagnosis of mastocytosis, and
mast cell degranulation as a cause of anaphylaxis.

Test Performed at:
[facility]
[address] [facility]
[place] [address]
Pancho Hargrove M.D., Ph.D.,Director of Laboratories Performing Location
--- OUTSIDE RECORDS SUMMARY | 2023-12-07 00:30 | External Medical Summary | Summary of Care ---
Author Name Unknown Organization [facility] Address [address] [place] [address] Phone [phone] Care Team Providers Care Hand Engraver Name Role Phone Karie Valdovinos MD Primary Care Provider [phone] Reason for Referral * Evaluate & Treat - Unlimited Visits (Within 30 days (routine)) - Pending Review Specialty Diagnoses / Procedures Referred By Contanusha t Referred To Contact Allergy & Immunology Diagnoses Allergic reaction, sequela Karie Valdovinos MD [address] [address] Referral ID Status Reason Start Date Expiration Date Visits Requested Visits Authorized [id number] Pending Review Specialty Services Required 11/12/[phone] Question Answer Referral Priority Within 30 days (routine) Where should this appointment be scheduled? [facility] For what condition is the patient being referred? Recurrent infections/Immunodeficiency Is the patient being referred for an autoimmune condition such as psoriasis, rheumatoid arthritis or lupus? 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 Reason for Visit * Reason Comments Emergency Department Follow-Up Encounter Details Date Type Department Care Team (Late st Contact Info) Description 11/12/2023 9:40 AM EST Office Visit Family Practice [facility] [address] [place] [address] Karie Valdovinos MD [address] [place] [address] [address] S/P cystoscopy with ureteral stent placement*; History of hydronephrosis; Gross hematuria; S/P insertion of iliac artery stent; Allergic reaction, sequela Allergies Active Allergy Reactions Criticality Noted Date Comments Meperidine Hives,Rash High 07/12/2023 documented as of this encounter (statuses as of 11/12/2023) Medications Medication Sig Dispensed Refills Start Date [...] as of this encounter (statuses as of 11/12/2023) Active Problems Problem Noted Date Diagnosed Date 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 Bipolar 1 disorder 07/16/2023 JILL (generalized anxiety disorder) 07/16/2023 Hydronephrosis 07/12/2023 Recurrent UTI (urinary tract infection) 07/12/20 POTS (postural orthostatic tachycardia syndrome) 07/12/2023 documented as of this encounter (statuses as of 11/12/2023) Immunizations Name Administration Dates Next Due Seasonal [...] Sign Reading Time Taken Comments Blood Pressure 120/70 11/12/2023 9:53 AM EST Pulse 79 11/12/2023 9:53 AM EST Temperature 36.6 C (97.9 F) 11/12/2023 9:53 AM ES T Respiratory Rate 16 11/12/2023 9:53 AM EST Oxygen Saturation 97% 11/12/2023 9:53 AM EST Inhaled Oxygen Concentration - - Weight 85.6 kg (188 lb 12.8 oz) 11/12/2023 9:53 AM EST Height 172.3 cm (5' 7.84") 11/12/2023 9:53 AM ES T Body Mass Index 28.84 11/12/2023 9:53 AM EST documented in this encounter Progress Notes * Karie Valdovinos MD - 11/12/2023 9:58 AM EST Subjective Chief Complaint Patient presents with Emergency Department Follow-Up HPI: Nolvia Abdullahi is a 23 year old female. The following issues were addressed today: Presents today for ER follow-up. Patient has history of bilateral ureteral reflux. Underwent right ureteral stent insertion for right hydronephrosis on 10/29/[address] Champion at [facility]. Was then seen in the [facility] ER on 10/30/23 for post-operative hematuria and right flank pain. Hgb was stable and she was discharged home. States she continues to have hematuria and intermittent right flank and lower abdominal pain, although overall symptoms have improved compared to last week. Has beentaking Tylenol PRN. Has had some nausea but this is typical for her. Denies fever, chills, or vomiting. Currently on Keflex, states her urine culture from the ER was positive. Has follow-up with urology in about 3 weeks. Last Hgb Level on 11/01/23 was stable. She is back on Eliquis which she has been taking chronically following iliac stent placement. Patient is requesting referral to cryptographic clerk. 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 Review of Systems: See HPI Objective BP 120/70 | Pulse 79 | Temp 36.6 C (97.9 F) (Tympanic) | Resp 16 | Ht 1.723 m (5' 7.84") | Wt 85.6 kg (188 lb 12.8 oz) | SpO2 97% | BMI 28.84 kg/m | BSA 2.02 m Wt Readings from Last 3 Encounters: 11/12/23 85.6 kg (188 lb 12.8 oz) 10/28/23 84.1 kg (185 lb 8 oz) 08/14/23 86.9 kg (191 lb 9.6 oz) BP Readings from Last 3 Encounters: 11/12/23 120/70 10/28/23 116/72 08/14/23 122/76 General: Well-appearing, no acute distress Cardiovascular: Regular rate and rhythm, no murmur Respiratory: Good respiratory effort, breath sounds equal and clear to auscultation bilaterally Genitourinary: Right CVA tenderness, no suprapubic tenderness Psychiatric: Appropriate mood and affect Assessment & Plan 1. S/P cystoscopy with ureteral stent placement 2. History of hydronephrosis 3. Gross hematuria Hgb stable. Follow-up with urology as scheduled. Tylenol as needed for pain. 4. S/P insertion of iliac artery stent Continue Eliquis. 5. Allergic reaction, sequela - ALLERGY REFERRAL OP Follow Up: Return in about 6 months (around 05/12/2024) for routine follow-up. | Check-out note: Allergy referral ordered. This note was electronically signed by Karie Valdovinos MD documented in this encounter Nursing Notes * Aurora Hayes LPN - 11/12/2023 9:52 AM EST Patient presents today for an ER follow up. documented in this encounter Plan of Treatment Upcoming Encounters Date Type Department Care Team (Late st Contact Info) Description 11/13/2023 9:00 AM EST Office Visit Allergy/Immunology [facility] [address] [facility] [place] [address] Torsten Blake MD [address] [facility] [place] [address] 11/13/2023 1:30 PM EST Telemedicine Psychiatry, [place] [address] [place] [address] Olena Padilla CRNP [address] [place] [address] 01/03/2024 7:15 AM EST Cardiac Studies Cardiac Studies[facility] [address] [place] [address] 05/12/2024 8:00 AM EDT Office Visit Family Practice [facility] [address] [facility] [address] [place] [address] Karie Valdovinos MD [address] [facility] [place] [address] 07/14/2024 1:00 PM EDT Office Visit Family Practice [facility] [address] [facility] [place] [address] Karie Valdovinos MD [address] [facility] [place] [address] Scheduled Referrals Name Type Priority Associated Diagnoses Orde r Schedule ALLERGY REFERRAL OP Referral Within 30 da ys (routine) Allergic reaction, sequela Ordered: 11/12/2023 Health Maintenance Due Date Last Done Comments [...] as of this encounter Visit Diagnoses Diagnosis S/P cystoscopy with ureteral stent placement- Primary History of hydronephrosis Personal history of other disorder of urinary system Gross hematuria S/P insertion of iliac artery stent Other postprocedural status Allergic reaction, sequela documented in this encounter Care Teams Hand Engraver Relationship Specialty Start Date End Date Karie Valdovinos MD [address] [place] [address] [address] PCP - General Family Medicine 07/12/23 documented as of this encounter
[2023-12-07] MEDS ORDERED: NSS + 20MEQ KCL 20 MEQ/1,000 ML BAG IV SCH (02:15)
[2023-12-07] MEDS ORDERED: OSELTAMIVIR PHOSPHATE 75 MG CAP PO STA (02:26)
[2023-12-07] MEDS ORDERED: MAGNESIUM SULFATE / D5W 1 GM/100 ML BAG IV ONE (03:00)
--- OUTSIDE RECORDS SUMMARY | 2023-12-07 04:35 | External Medical Summary | Summary of Care ---
Author Name Unknown Organization [facility] Address [address] [place] [address] Phone [phone] Care Team Providers Care Executive Asst Name Role Phone Karie Valdovinos MD Primary Care Provider [phone] Reason for Visit * Reason Onset Date Comments Sore Throat Sore Throat 12/06/2023 Encounter Details Date Type Department Care Team (Latest Contact Info) Description 12/06/2023 3:00 PM EST Convenient Care Visit [facility] [address] [place] [address] Charles Laughlin PA-C [address] [place] [address] Acute sore throat* Allergies Active Allergy Reactions [...] of care were discussed Charles Laughlin PA-C [facility] [address] [facility] [address] documented in this encounter Nursing Notes * Heena Nixon LPN - 12/06/2023 3:21 PM EST 23 yo female presents with headache, sore throat, fever x 2 days. Took tylenol documented in this encounter Plan of Treatment Upcoming Encounters Date Type Department Care Team (Late st Contact Info) Description 01/03/2024 7:15 AM EST Cardiac Studies Cardiac Studies, [facility] [address] [facility] [place] [address] 01/15/2024 2:30 PM EST Telemedicine Psychiatry, [place] [address] [place] [address] Olena Padilla CRNP [address] [place] [address] 01/17/2024 8:30 AM EST Office Visit Allergy/Immunology [facility] [address] [place] [address] Terrie Julio PA-C [address] [facility] [place], [place] [address] 05/12/2024 8:00 AM EDT Office Visit [facility] [address] [facility] [place] [address] Karie Valdovinos MD [address] [facility] [address] [place] [address] 07/14/2024 1:00 PM EDT Office Visit [facility] [address] [facility] [place] [address] Karie Valdovinos MD [address] [facility] [place] [address] Pending Results Name Type Priority Associated Diagnoses Date /Time GROUP A STREP PCR Lab STAT Acute sore throat 12/06/2023 4:34 PM EST INFLUENZA A/B RSV SARS-COV2,PCR Lab STAT Acute sore throat 12/06/2023 3:50 PM EST Health Maintenance Due Date Last Done [...] Procedure Name Priority Date/Time Associated Diagnosis Comments STREP A SCREEN, POINT OF CARE (ENTER/EDIT) Routine 12/06/2023 Acute sore throat documented in this encounter Results * STREP A SCREEN, POINT OF CARE (ENTER/EDIT) (12/06/2023) Strep A Result Negative Negative Procedural Control Valid? Yes Lot Number [id number] Expiration Date 41 Swab Throat swab / Unknown 12/06/2023 Charles Laughlin PA-C LAB POINT O F CARE TEST ENTER/EDIT ORDERABLES documented in this encounter Visit Diagnoses Diagnosis Acute sore throat- Primary documented in this encounter Care Teams Executive Asst Relationship Specialty Start Date End Date Karie Valdovinos MD [address] [facility] [place] [address] PCP - General Family Medicine 07/12/23 documented as of this encounter
[2023-12-07] MEDS ORDERED: ONDANSETRON INJ 2 MG/ML 2 ML VIAL IV PRN (05:30)
--- NOTE | 2023-12-07 05:36 | History & Physical Report ---
Date of Service December 07, 2023 Assessment & Plan (1) Influenza A virus subtype H1 2009 pandemic strain present: (2) Tachycardia: (3) Hypokalemia: (4) Dehydration: (5) POTS (postural orthostatic tachycardia syndrome): (6) Haroldo-Danlos disease: (7) Bladder spasms: (8) Duplication of bilateral ureters: (9) Recurrent urinary tract infection: (10) Bipolar disorder: Plan Sinus tachycardia/POTS/dehydration/hypokalemia/hypomagnesemia- Secondary to dehydration/hypokalemia and relative hypomagnesemia Potassium 3.3, and magnesium 1.9, likely both secondary to losses from vomiting Was given normal saline 1 L bolus from the ED Then given magnesium sulfate 1 g IV, and placed on NSS + KCl 20 MEQ's at 150 mL/h x 1 L Peak heart rate was 140, and did gradually decrease to normal sinus rhythm at 83, with blood pressure 119/71 Continue [facility] Influenza A H1 2009 pandemic strain- Tamiflu 75 mg p.o. twice daily x 5 days Symptomatic treatment for nausea with Zofran 4 mg IV every 4 hours as needed Acetaminophen 650 mg by mouth every 6 hours as needed for mild pain or fever Urinary tract infection/history of ureteral stent and hydronephrosis/congenital duplication bilateral ureters- Follow urine culture and sensitivity Empiric ceftriaxone 2 g IV every 24 hours Continue tamsulosin Iliac artery stent with development of clots- Necessitated removal Continue apixaban 5 mg twice daily Bipolar disorder- Continue repeat problems all, guanfacine, bupropion, quetiapine and sertraline Admission and Anticipated Discharge Date Admission Date: December 07, 2023 History of Present Illness Chief Complaint: The patient reports that she had seen her director peoplesoft yesterday due to increased heart rate, and her medication midodrine was increased. Today she began to have fevers, headache, chills, nausea and vomiting, and presents to the ED for further assessment. Primary Care Provider: Karie Valdovinos MD The patient is a 23-year-old female with a past medical history including Haroldo-Danlos, POTS, congenital duplicated ureters, hydronephrosis status post stent 04/22/2023, recurrent urine tract infections, bladder spasms, iliac artery stent and removal, and bipolar disorder. In the emergency department, patient arrived with a heart rate of 140, and had improvement down to the 120s with the addition of normal saline 1 L bolus by the ED Significant laboratories: Potassium 3.3, magnesium 1.9, [employer] test positive for influenza A H 11/2008 pandemic strain. Urinalysis positive for urinary tract infection Allergies Allergy/AdvReac Type Severity Reaction Status Date / Time meperidine [From Demerol] Allergy Intermediate HIVES/RASH Verified 12/06/23 22:16 Home Medications Medication Instructions Recorded Confirmed Type apixaban 5 mg tablet (Eliquis) 5 mg PO BID 08/18/23 12/06/23 History aripiprazole 10 mg tablet (Abilify) 10 mg PO DAILY 08/18/23 12/06/23 History aspirin 81 mg tablet,delayed 81 mg PO BID 08/18/23 12/06/23 History release bupropion HCl 450 mg 24 hr tablet, 450 mg PO QAM 08/18/23 12/06/23 History extended release guanfacine 2 mg tablet 3 mg PO QAM 08/18/23 12/06/23 History ivabradine 5 mg tablet (Corlanor) 2.5 mg PO AMPM 08/18/23 12/06/23 History midodrine 5 mg tablet 10 mg PO QAM 08/18/23 12/06/23 History quetiapine 100 mg tablet (Seroquel) 100 mg PO HS 08/18/23 12/06/23 History sertraline 100 mg tablet 100 mg PO HS 08/18/23 12/06/23 History ondansetron 4 mg disintegrating 4 mg PO Q6H PRN nausea and 09/16/23 12/06/23 Rx tablet vomiting #14 tabs oxybutynin chloride 5 mg tablet 5 mg PO DIRECTED PRN Bladder 12/06/23 12/06/23 History Spasms tamsulosin 0.4 mg capsule 0.4 mg PO HS 12/06/23 12/06/23 History Past Med/Surg History Medical History (Updated 12/07/23 @ 05:25 by Rigoberto Mims MD) Bipolar disorder Recurrent urinary tract infection 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 POTS (postural orthostatic tachycardia syndrome) Surgical History (Updated 12/07/23 @ 05:25 by Rigoberto Mims MD) Status post insertion of iliac artery stent Status post cystoscopy with ureteral stent placement Social History Smoking Status: Never smoker Preferred Language: Latvian Feels Safe at Home: Yes Review of Systems Review of Systems: The patient denies chest pain, cough, lower extremity swelling, diarrhea , constipation, abdominal pain, pelvic pain, blood in urine or stool, dysuria, urinary frequency or urgency, memory loss, loss of consciousness, rash, abnormal bruising or bleeding, imbalance, focal weakness, numbness or tingling in arms or legs, generalized arthralgias or myalgias, back or neck pain, or night sweats. The review of systems is otherwise negative other than for that already noted above, and at least 10 systems have been reviewed. Physical Exam Physical Exam: The patient is awake, alert and oriented 3, well developed and well nourished, normocephalic and atraumatic, lying in bed and in no acute distress. HEENT--PERRL, EOMI, mucous membranes and oropharynx dry. Neck--supple. No JVD. No bruits. Thyroid normal, trachea midline, no adenopathy. Heart--tachycardic. No murmurs, rubs or gallops. Lungs--clear bilaterally, no respiratory distress, no accessory muscle use. Abdomen--normal bowel sounds and soft. Nontender. Nondistended, no hernias or masses, no organomegaly. Extremities--no cyanosis or clubbing. No edema. Dermatologic--normal skin turgor, normal color, no abnormal lymph nodes, no rash. Neurologic--cranial nerves II through XII grossly intact. Rheumatologic--normal range of motion. Psychiatric--normal affect. Results & Data Results & Data Vital Signs (Past 12 Hours) Vital Signs Temp Pulse Resp BP Pulse Ox O2 Del Method 12/07/23 05:00 83 24 119/71 97 Room Air 12/07/23 04:30 90 24 93 Room Air 12/07/23 04:00 95 H 16 103/57 L 97 Room Air 12/07/23 03:30 100 H 22 129/86 12/07/23 03:00 96 H 19 96 Room Air 12/07/23 02:40 108 H 12/07/23 02:30 101 H 20 116/80 96 Room Air 12/07/23 02:00 104 H 18 90/62 L 96 Room Air 12/07/23 01:30 112 H 19 97/53 L 96 Room Air 12/07/23 01:00 37.0 C 12/07/23 01:00 106 H 18 116/74 96 Room Air 12/07/23 00:30 107 H 17 123/72 96 Room Air 12/07/23 00:07 114 H 18 122/75 99 Room Air 12/07/23 00:00 115 H 19 99 Room Air 12/06/23 23:37 39.2 C H 12/06/23 23:30 113 H 21 100 Room Air 12/06/23 23:17 99 Room Air 12/06/23 23:00 111 H 22 99 12/06/23 22:30 117 H 21 125/78 98 12/06/23 22:22 117 H 12/06/23 22:20 116 H 24 12/06/23 19:40 38.1 C H 140 H 20 133/75 97 Room Air Laboratory Results Laboratory Results WBC 7.68 K/ul (4.8-10.8) 12/06/23 19:55 RBC 4.21 M/uL (4.20-5.40) 12/06/23 19:55 Hgb 12.7 g/dl (12.0-16.0) 12/06/23 19:55 Hct 38.5 % (37.0-47.0) 12/06/23 19:55 MCV 91.4 fL (80.0-100.0) 12/06/23 19:55 MCH 30.2 pg (25.0-34.0) 12/06/23 19:55 MCHC 33.0 g/dL (32.0-36.0) 12/06/23 19:55 RDW Std Deviation 43.4 fL (36.4-46.3) 12/06/23 19:55 RDW Coeff of Cher 13.1 % (11.5-14.5) 12/06/23 19:55 Plt Count 230 K/uL (130-400) 12/06/23 19:55 MPV 9.2 fL (9.4-12.4) L 12/06/23 19:55 Immature Gran % (Auto) 0.3 % 12/06/23 19:55 Neut % (Auto) 84.2 % 12/06/23 19:55 Lymph % (Auto) 3.8 % 12/06/23 19:55 [place] % (Auto) 10.9 % 12/06/23 19:55 Eos % (Auto) 0.7 % 12/06/23 19:55 Baso % (Auto) 0.1 % 12/06/23 19:55 Neut # (Auto) 6.47 K/uL (1.40-6.50) 12/06/23 19:55 Lymph # (Auto) 0.29 K/uL (1.20-3.40) L 12/06/23 19:55 [place] # (Auto) 0.84 K/uL (0.11-0.59) H 12/06/23 19:55 Eos # (Auto) 0.05 K/uL (0.00-0.50) 12/06/23 19:55 Baso # (Auto) 0.01 K/uL (0.00-0.20) 12/06/23 19:55 Immature Gran # (Auto) 0.02 K/uL (0.01-0.20) 12/06/23 19:55 PT 11.9 Seconds (9.0-12.0) 12/06/23 19:55 INR 1.1 (0.9-1.1) 12/06/23 19:55 APTT 31 Seconds (21-31) 12/06/23 19:55 PTT Ratio 1.1 12/06/23 19:55 Sodium 135 mmol/L (136-145) L 12/06/23 19:55 Potassium 3.3 mmol/L (3.5-5.1) L 12/06/23 19:55 Chloride 102 mmol/L (98-107) 12/06/23 19:55 Carbon Dioxide 25 mmol/L (21-32) 12/06/23 19:55 Anion Gap 8 (3-11) 12/06/23 19:55 BUN 12 mg/dl (6-23) 12/06/23 19:55 Creatinine 0.75 mg/dl (0.6-1.2) 12/06/23 19:55 Est Cr Clr Drug Dosing 132.5 ml/min 12/06/23 19:55 Est GFR ( Amer) 129.3 ml/min 12/06/23 19:55 Est GFR (Non-Af Amer) 111.6 ml/min 12/06/23 19:55 BUN/Creatinine Ratio 16.0 (10-20) 12/06/23 19:55 Glucose 103 mg/dl (70-99(Fasting)) H 12/06/23 19:55 Lactate 1.1 mmol/L (0.4-2.0) 12/06/23 21:30 Calcium 9.7 mg/dl (8.6-10.3) 12/06/23 19:55 Magnesium 1.9 mg/dl (1.7-2.4) 12/06/23 19:55 Total Bilirubin 0.3 mg/dl (0.2-1.0) 12/06/23 19:55 AST 15 U/L (13-39) 12/06/23 19:55 ALT 11 U/L (7-52) 12/06/23 19:55 Alkaline Phosphatase 73 U/L (34-104) 12/06/23 19:55 Troponin I High Sens < 2.3 pg/ml (0-14) 12/06/23 19:55 Total Protein 7.7 gm/dl (6.0-8.3) 12/06/23 19:55 Albumin 4.5 gm/dl (3.4-5.0) 12/06/23 19:55 Globulin 3.2 gm/dl (2.5-4.0) 12/06/23 19:55 Albumin/Globulin Ratio 1.4 (0.9-2) 12/06/23 19:55 Procalcitonin 0.05 ng/ml (0-0.5) 12/06/23 19:55 HCG, Qual Negative (Negative) 12/06/23 19:44 Urine Color [place] 12/06/23 21:38 Urine Appearance Turbid (Clear) A 12/06/23 21:38 Urine pH 6.5 (4.5-7.5) 12/06/23 21:38 Ur Specific [place] 1.026 (1.000-1.030) 12/06/23 21:38 Urine Protein 2+ (Negative) H 12/06/23 21:38 Urine Glucose (UA) Negative (Negative) 12/06/23 21:38 Urine Ketones 1+ (Negative) H 12/06/23 21:38 Urine Blood 3+ (Negative) H 12/06/23 21:38 Urine Nitrite Negative (Negative) 12/06/23 21:38 Urine Bilirubin 1+ (Negative) H 12/06/23 21:38 Urine Urobilinogen Negative (Negative) 12/06/23 21:38 Ur Leukocyte Esterase 1+ (Negative) H 12/06/23 21:38 Urine RBC >30 /hpf (0-4) H 12/06/23 21:38 Urine WBC 10-30 /hpf (0-5) H 12/06/23 21:38 Ur Epithelial Cells 0-5 /lpf (0-5) 12/06/23 21:38 Urine Bacteria 1+ (Negative) H 12/06/23 21:38 Hyaline Casts 0-5 /lpf (0-5) 12/06/23 21:38 Nasal Influ A H1 2008 PCR DETECTED (NotDetected) A* 12/06/23 19:40 Adenovirus (PCR) Not Detected (NotDetected) 12/06/23 19:40 B. pertussis DNA (PCR) Not Detected (NotDetected) 12/06/23 19:40 B.parapertussis DNA PCR Not Detected (NotDetected) 12/06/23 19:40 C. pneumoniae DNA (PCR) Not Detected (NotDetected) 12/06/23 19:40 Coronavirus OC43 (PCR) Not Detected (NotDetected) 12/06/23 19:40 Coronavirus HKU1 (PCR) Not Detected (NotDetected) 12/06/23 19:40 Coronavirus 229E (PCR) Not Detected (NotDetected) 12/06/23 19:40 SARS-CoV-2 (PCR) Not Detected (NotDetected) 12/06/23 19:40 Coronavirus NL63 (PCR) Not Detected (NotDetected) 12/06/23 19:40 Human Metapneumovir PCR Not Detected (NotDetected) 12/06/23 19:40 Influenza Type B (PCR) Not Detected (NotDetected) 12/06/23 19:40 M. pneumoniae (PCR) Not Detected (NotDetected) 12/06/23 19:40 Parainfluenza 1 (PCR) Not Detected (NotDetected) 12/06/23 19:40 Parainfluenza 2 (PCR) Not Detected (NotDetected) 12/06/23 19:40 Parainfluenza 3 (PCR) Not Detected (NotDetected) 12/06/23 19:40 Parainfluenza 4 (PCR) Not Detected (NotDetected) 12/06/23 19:40 RSV (PCR) Not Detected (NotDetected) 12/06/23 19:40 Entero/Rhino (PCR) Not Detected (NotDetected) 12/06/23 19:40 Code Status & VTE Plan Code Status Full code VTE Prophylaxis Plan VTE Prophylaxis will be ordered: Yes PG Care Time/CCT Total # of Minutes Spent Total Time Spent with Patient: Total time spent is greater than 50% in coordination of care (as documented) at patient's floor/unit and/or counseling patient: Coding Level of Care Code 45104 INT INP/OBS CARE 3/75MIN Diagnoses Influenza A virus subtype H1 2009 pandemic strain present J10.1 Tachycardia R00.0 Hypokalemia E87.6 Dehydration E86.0 POTS (postural orthostatic tachycardia syndrome) G90.A Haroldo-Danlos disease Q79.60 Bladder spasms N32.89 Duplication of bilateral ureters Q62.5 Recurrent urinary tract infection N39.0 Bipolar disorder F31.9
[2023-12-07] MEDS: ACETAMINOPHEN 325 MG TAB PO PRN ×3 (07:43→16:34)
[2023-12-07] MEDS ORDERED: SODIUM CHLORIDE 0.9% 500 ML IV ONE (07:49)
--- NOTE | 2023-12-07 07:51 | Electrocardiogram Report ---
Test Reason : Blood Pressure : / mmHG Vent. Rate : 140 BPM Atrial Rate : 140 BPM P-R Int : 104 ms QRS Dur : 088 ms QT Int : 360 ms P-R-T Axes : 054 072 051 degrees QTc Int : 549 ms Sinus tachycardia with short NH Abnormal ECG No previous ECGs available Confirmed by Travis Lehman ([id number]) on 12/07/2023 7:51:11 AM Referred By: REFERRED SELF Confirmed By:Chidi Lehman
[2023-12-07] MEDS: guanFACINE HCL 1 MG TAB PO SCH (08:41)
[2023-12-07] MEDS: MIDODRINE HCL 10 MG TAB PO SCH (08:42)
[2023-12-07] MEDS: ARIPiprazole 10 MG TAB PO SCH (08:42)
[2023-12-07] MEDS: oxyBUTYnin chloride 5 MG TAB PO PRN ×2 (08:42→12:35)
[2023-12-07] MEDS: buPROPion XL 150 MG TABCR PO SCH (08:42)
[2023-12-07] MEDS: APIXABAN 5 MG TABLET PO SCH ×2 (08:43→21:32)
[2023-12-07] MEDS: ASPIRIN 81 MG ECTAB PO SCH ×2 (08:43→21:32)
--- NOTE | 2023-12-07 09:04 | Urology Consultation ---
Date of Consultation December 07, 2023 Assessment & Plan (1) Duplicated right renal collecting system: (2) Hydronephrosis, right: (3) Recurrent urinary tract infection: (4) S/P ureteral stent placement: Plan 23-year-old female with a duplicated right collecting system and recurrent UTIs with upper pole hydronephrosis status post right ureteral upper pole stent placement by [facility] in October. She presented to hospital with fevers and was found to have a possible urinary tract infection as well as being positive for the flu. I reviewed her previous imaging and agree that she does not necessarily need another CT scan unless she were to clinically worsen No current urologic intervention necessary Unclear at this time if her fevers and tachycardia are related to the flu or UTI. Suspect may be a combination of both but will not know until urine culture finalizes Follow urine cultures and treat if positive. Recommend a total of 10 to 14 days of antibiotics Patient already has follow-up scheduled with [facility] and she can keep this appointment Urology to sign off History of Present Illness Attending Physician: Kevin Sheehan, History of Present Illness 23-year-old female who presented to hospital on 12/06/2023 with fever. She has a history of a duplicated right collecting system and currently has an indwelling stent in the right upper pole that was placed by [facility]. She was initially tachycardic and febrile when she presented. Labs showed a white blood cell count of 7.6, creatinine of 0.75 which appears to be roughly her baseline, a positive UA (she does have a stent in place), and she was positive for the flu. Imaging was not obtained as she has had numerous CT scans in the past several months. She was given ceftriaxone and admitted to the hospital service. Patient reports some discomfort from the stent but unclear if her symptoms are more related to a possible UTI or the flu. She reports she has a nuclear medicine scan and appointment with urology in the next few weeks to determine management of stent. Stent was placed in October after she had repeated UTIs. 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 [employer] Allergies Allergy/AdvReac Type Severity Reaction Status Date / Time meperidine [From Demerol] Allergy Intermediate HIVES/RASH Verified 12/06/23 22:16 Home Medications Medication Instructions Recorded Confirmed Type apixaban 5 mg tablet (Eliquis) 5 mg PO BID 08/18/23 12/06/23 History aripiprazole 10 mg tablet (Abilify) 10 mg PO DAILY 08/18/23 12/06/23 History aspirin 81 mg tablet,delayed 81 mg PO BID 08/18/23 12/06/23 History release bupropion HCl 450 mg 24 hr tablet, 450 mg PO QAM 08/18/23 12/06/23 History extended release guanfacine 2 mg tablet 3 mg PO QAM 08/18/23 12/06/23 History ivabradine 5 mg tablet (Corlanor) 2.5 mg PO AMPM 08/18/23 12/06/23 History midodrine 5 mg tablet 10 mg PO QAM 08/18/23 12/06/23 History quetiapine 100 mg tablet (Seroquel) 100 mg PO HS 08/18/23 12/06/23 History sertraline 100 mg tablet 100 mg PO HS 08/18/23 12/06/23 History ondansetron 4 mg disintegrating 4 mg PO Q6H PRN nausea and 09/16/23 12/06/23 Rx tablet vomiting #14 tabs oxybutynin chloride 5 mg tablet 5 mg PO DIRECTED PRN Bladder 12/06/23 12/06/23 History Spasms tamsulosin 0.4 mg capsule 0.4 mg PO HS 12/06/23 12/06/23 History Patient History Medical History (Updated 12/07/23 @ 10:04 by Lucius Gastelum MD) Bipolar disorder Recurrent urinary tract infection 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 POTS (postural orthostatic tachycardia syndrome) Surgical History (Updated 12/07/23 @ 10:04 by Lucius Gastelum MD) Status post insertion of iliac artery stent Status post cystoscopy with ureteral stent placement Social History Smoking Status: Never smoker Second Hand Exposure: No; Do You Dip or Chew Tobacco: No; Tobacco Cessation Education Requested by Patient: No Hx Alcohol Use: Yes Hx Substance Use: No Preferred Language: Italian Communication Ability: Effective Aerodynamic Consultant Required: Yes and No Beliefs That Will Affect Care: None Current Living Situation: Other Current Living Situation Comment: sig other Other Information That Helps Us Care for You: No Feels Safe at Home: Yes Safety Concerns: Feels Safe At This Time Assistive Devices: None Review of Systems Review of Systems: 14 point review of systems negative outs mindy of what is listed above in HPI Physical Exam Physical Exam: General: Alert and oriented, no acute distress HEENT: Normocephalic, mucous membranes moist Pulmonary: Nonlabored respirations Abdomen: Nondistended Extremities: Moves all 4 spontaneously Neuro: No gross deficits Skin: Warm, dry, no rashes noted Results & Data Vital Signs (Past 12 Hours) Vital Signs Temp Pulse Pulse Resp BP BP Pulse Ox 12/07/23 08:50 38.2 C H 101 H 20 132/78 95 12/07/23 07:15 99 H 12/07/23 06:30 93 H 17 94/62 L 98 12/07/23 06:01 93 H 15 94/56 L 99 12/07/23 05:30 83 15 122/75 99 12/07/23 05:00 83 24 119/71 97 12/07/23 04:30 90 24 93 12/07/23 04:00 95 H 16 103/57 L 97 12/07/23 03:30 100 H 22 129/86 12/07/23 03:00 96 H 19 96 12/07/23 02:40 108 H 12/07/23 02:30 101 H 20 116/80 96 12/07/23 02:00 104 H 18 90/62 L 96 12/07/23 01:30 112 H 19 97/53 L 96 12/07/23 01:00 37.0 C 12/07/23 01:00 106 H 18 116/74 96 12/07/23 00:30 107 H 17 123/72 96 12/07/23 00:07 114 H 18 122/75 99 12/07/23 00:00 115 H 19 99 12/06/23 23:37 39.2 C H 12/06/23 23:30 113 H 21 100 12/06/23 23:17 99 12/06/23 23:00 111 H 22 99 12/06/23 22:30 117 H 21 125/78 98 12/06/23 22:22 117 H 12/06/23 22:20 116 H 24 O2 Del Method 12/07/23 08:50 Room Air 12/07/23 07:15 12/07/23 06:30 Room Air 12/07/23 06:01 Room Air 12/07/23 05:30 Room Air 12/07/23 05:00 Room Air 12/07/23 04:30 Room Air 12/07/23 04:00 Room Air 12/07/23 03:30 12/07/23 03:00 Room Air 12/07/23 02:40 12/07/23 02:30 Room Air 12/07/23 02:00 Room Air 12/07/23 01:30 Room Air 12/07/23 01:00 12/07/23 01:00 Room Air 12/07/23 00:30 Room Air 12/07/23 00:07 Room Air 12/07/23 00:00 Room Air 12/06/23 23:37 12/06/23 23:30 Room Air 12/06/23 23:17 Room Air 12/06/23 23:00 12/06/23 22:30 12/06/23 22:22 12/06/23 22:20 PG Care Time/CCT Total # of Minutes Spent Total Time Spent with Patient: Total time spent is greater than 50% in coordination of care (as documented) at patient's floor/unit and/or counseling patient: Coding Level of Care Code 84066 IN/OBS CONSULT LVL 3,45M Diagnoses Duplicated right renal collecting system Q62.5 Hydronephrosis, right N13.30 Recurrent urinary tract infection N39.0 S/P ureteral stent placement Z96.0
[2023-12-07 09:12] LABS: BUN Creatinine Ratio 13.8 (10-20); Calcium 8.6 mg/dl (8.6-10.3); Creatinine Clr Calc Pharmacy 152.8 ml/min; Est GFR (Non-African American) 124.3 ml/min; Magnesium 2.2 mg/dl (1.7-2.4); Potassium 3.7 mmol/L (3.5-5.1)
--- NOTE | 2023-12-07 09:14 | XRay Report ---
XR chest 1V not portable CLINICAL HISTORY: Sepsis TECHNIQUE: Single frontal radiograph of the chest was obtained. Comparison: None available at the time of this dictation. FINDINGS: No lines and tubes are seen. The cardiomediastinal silhouette is normal. The lungs are clear. No evid ence of pleural effusion or pneumothorax. IMPRESSION: No acute abnormalities and in particular no radiographic evidence of pneumonia. ACT 112: Negative or not required by law. Electronically signed by: Ricci Langley M.D. 12/07/2023 9:13 AM
--- NOTE | 2023-12-07 09:48 | Hospitalist Progress Note ---
Date of Service December 07, 2023 Assessment & Plan (1) Influenza A virus subtype H1 2009 pandemic strain present: Plan: #Sinus tachycardia/POTS/dehydration/hypokalemia/hypomagnesemia -improved -potassium and magnesium replenished and now wnl, likely both secondary to losses from vomiting -peak heart rate was 140, and did gradually decrease to normal sinus rhythm -cont. Corlanor #Influenza A H1 2009 pandemic strain -cont. Tamiflu 75 mg bid x5 days -supportive care #Urinary tract infection/history of ureteral stent and hydronephrosis/congenital duplication bilateral ureters -follow urine culture and sensitivity -cont. empiric ceftriaxone -cont. tamsulosin -urology consulted -no intervention at this time - follow urine cx and treat accordingly #Iliac artery stent with development of clots -necessitated removal -cont. eliquis #Bipolar disorder -cont. guanfacine, bupropion, quetiapine, and sertraline DVT ppx: Eliquis FEN/GI: HH Code Status: full Dispo: PCU (2) Tachycardia: (3) Hypokalemia: (4) Dehydration: (5) POTS (postural orthostatic tachycardia syndrome): (6) Haroldo-Danlos disease: (7) Bladder spasms: (8) Duplication of bilateral ureters: (9) Recurrent urinary tract infection: (10) Bipolar disorder: Admission and Anticipated Discharge Date Admission Date: December 07, 2023 Supervising Physician Co-Signing Physician Notes ATTESTATION I also saw the patient and confirmed jolly portions of the history and exam. I agree with the impression and plan in the resident documentation, and as summarized below. Upon our midmorning exam, the patient remains in the emergency department. Friend at bedside. Overall, she feels better compared to yesterday. She did receive the seasonal flu vaccination this year, but was back in July. She reports being seen in the emergency department [facility] on Saturday this week for issues related to her recurrent UTIs; then midweek/ timeframe, developed flulike symptoms including weakness, fever, chills, and nausea and vomiting. She presented to the emergency department here and was found to be tachycardic with dehydration, hypokalemia, and hypomagnesemia; also tested positive for flu A (H1N1). She was given IV fluids and her electrolyte abnormalities were corrected; with IV fluids, her tachycardia resolved. In addition to the recurrent UTIs, she has past medical history of POTS and Haroldo-Danlos. EXAM 128/78, 74, 27, 30.2, 95% on room air She is pleasant alert. No acute distress appreciated. Heart is regular rate and rhythm Respirations are nonlabored DATA Labs CBC upon presentation shows white blood cell count 7.68, hemoglobin 12.7 Repeat BMP this morning shows sodium 137, potassium 3.7, BUN 9, creatinine 0.65 Imaging Chest x-ray shows no acute process. Micro Blood cultures drawn 12/06/2023 are pending Urine culture collected 12/06/2023 shows no growth preliminary, final pending IMPRESSION & PLAN Influenza A Tamiflu and supportive care Sinus tachycardia, resolved Dehydration, hypokalemia, hypomagnesemia, resolved POTS Given history and presence of fever, I still think she is down in terms of volume Resume IV hydration Encourage p.o. Recheck BMP in a.m. History of recurrent urine tract infections Status post renal stent placement, right Urology consultation appreciated Continue Rocephin pending cultures Additional per resident documentation Subjective Patient seen at bedside. Flu symptoms similar to yesterday. Having exacerbated R flank pain. Urinating well without hematuria. Denies cp, sob, N/V/D. Review of Systems Review of Systems: All systems reviewed & are unremarkable except as noted in HPI & below Physical Exam Physical Exam: Constitutional: in no acute distress, pleasant and normal affect, intact memory. AOx3. Vitals as above. HEENT: No scleral injection or discharge.Moist mucous membranes. Neck: Supple without lymphadenopathy or thyromegaly. Trachea midline. Lungs: CTAB. No wheezes/rales/rhonchi Cardiac: Tachycardic. Regular rhythm. No murmurs. No lower extremity edema. 2+ distal peripheral pulses. Abdomen: Soft, nontender, and nondistended.No guarding. No hepatosplenomegaly. MSK: No cyanosis or clubbing. Skin: No rashes, warm, dry. Neurologic: no focal deficits Results & Data Results & Data Vital Signs (Past 12 Hours) Vital Signs Temp Pulse Pulse Resp BP BP Pulse Ox 12/07/23 09:00 124/76 12/07/23 09:00 105 H 19 12/07/23 08:50 38.2 C H 101 H 20 132/78 95 12/07/23 08:30 132/78 12/07/23 08:30 22 12/07/23 08:00 123/83 12/07/23 08:00 106 H 18 12/07/23 07:31 108 H 25 H 97 12/07/23 07:31 121/64 12/07/23 07:30 109 H 26 H 98 12/07/23 07:15 99 H 12/07/23 07:00 99 H 24 97 12/07/23 07:00 98/51 L 12/07/23 06:30 93 H 17 94/62 L 98 12/07/23 06:01 93 H 15 94/56 L 99 12/07/23 05:30 83 15 122/75 99 12/07/23 05:00 83 24 119/71 97 12/07/23 04:30 90 24 93 12/07/23 04:00 95 H 16 103/57 L 97 12/07/23 03:30 100 H 22 129/86 12/07/23 03:00 96 H 19 96 12/07/23 02:40 108 H 12/07/23 02:30 101 H 20 116/80 96 12/07/23 02:00 104 H 18 90/62 L 96 12/07/23 01:30 112 H 19 97/53 L 96 12/07/23 01:00 37.0 C 12/07/23 01:00 106 H 18 116/74 96 12/07/23 00:30 107 H 17 123/72 96 12/07/23 00:07 114 H 18 122/75 99 12/07/23 00:00 115 H 19 99 12/06/23 23:37 39.2 C H 12/06/23 23:30 113 H 21 100 12/06/23 23:17 99 12/06/23 23:00 111 H 22 99 12/06/23 22:30 117 H 21 125/78 98 12/06/23 22:22 117 H 12/06/23 22:20 116 H 24 O2 Del Method 12/07/23 09:00 12/07/23 09:00 12/07/23 08:50 Room Air 12/07/23 08:30 12/07/23 08:30 12/07/23 08:00 12/07/23 08:00 12/07/23 07:31 12/07/23 07:31 12/07/23 07:30 12/07/23 07:15 12/07/23 07:00 12/07/23 07:00 12/07/23 06:30 Room Air 12/07/23 06:01 Room Air 12/07/23 05:30 Room Air 12/07/23 05:00 Room Air 12/07/23 04:30 Room Air 12/07/23 04:00 Room Air 12/07/23 03:30 12/07/23 03:00 Room Air 12/07/23 02:40 12/07/23 02:30 Room Air 12/07/23 02:00 Room Air 12/07/23 01:30 Room Air 12/07/23 01:00 12/07/23 01:00 Room Air 12/07/23 00:30 Room Air 12/07/23 00:07 Room Air 12/07/23 00:00 Room Air 12/06/23 23:37 12/06/23 23:30 Room Air 12/06/23 23:17 Room Air 12/06/23 23:00 12/06/23 22:30 12/06/23 22:22 12/06/23 22:20 Laboratory Results 12/07/23 12/06/23 12/06/23 Range/Units 08:23 21:38 21:30 WBC (4.8-10.8) K/ul RBC (4.20-5.40) M/uL Hgb (12.0-16.0) g/dl Hct (37.0-47.0) % MCV (80.0-100.0) fL MCH (25.0-34.0) pg MCHC (32.0-36.0) g/dL RDW Std Deviation (36.4-46.3) fL RDW Coeff of Cher (11.5-14.5) % Plt Count (130-400) K/uL MPV (9.4-12.4) fL Immature Gran % (Auto) % Neut % (Auto) % Lymph % (Auto) % Coryell % (Auto) % Eos % (Auto) % Baso % (Auto) % Neut # (Auto) (1.40-6.50) K/uL Lymph # (Auto) (1.20-3.40) K/uL Coryell # (Auto) (0.11-0.59) K/uL Eos # (Auto) (0.00-0.50) K/uL Baso # (Auto) (0.00-0.20) K/uL Immature Gran # (Auto) (0.01-0.20) K/uL PT (9.0-12.0) Seconds INR (0.9-1.1) APTT (21-31) Seconds PTT Ratio Sodium 137 (136-145) mmol/L Potassium 3.7 (3.5-5.1) mmol/L Chloride 108 H (98-107) mmol/L Carbon Dioxide 22 (21-32) mmol/L Anion Gap 7 (3-11) BUN 9 (6-23) mg/dl Creatinine 0.65 (0.6-1.2) mg/dl Est Cr Clr Drug Dosing 152.8 ml/min Est GFR ( Amer) 144.0 ml/min Est GFR (Non-Af Amer) 124.3 ml/min BUN/Creatinine Ratio 13.8 (10-20) Glucose 97 (70-99(Fasting)) mg/dl Lactate 1.1 (0.4-2.0) mmol/L Calcium 8.6 (8.6-10.3) mg/dl Magnesium 2.2 (1.7-2.4) mg/dl Total Bilirubin (0.2-1.0) mg/dl AST (13-39) U/L ALT (7-52) U/L Alkaline Phosphatase (34-104) U/L Troponin I High Sens (0-14) pg/ml Total Protein (6.0-8.3) gm/dl Albumin (3.4-5.0) gm/dl Globulin (2.5-4.0) gm/dl Albumin/Globulin Ratio (0.9-2) Procalcitonin (0-0.5) ng/ml HCG, Qual (Negative) Urine Color Carlin Urine Appearance Turbid A (Clear) Urine pH 6.5 (4.5-7.5) Ur Specific Sanborn 1.026 (1.000-1.030) Urine Protein 2+ H (Negative) Urine Glucose (UA) Negative (Negative) Urine Ketones 1+ H (Negative) Urine Blood 3+ H (Negative) Urine Nitrite Negative (Negative) Urine Bilirubin 1+ H (Negative) Urine Urobilinogen Negative (Negative) Ur Leukocyte Esterase 1+ H (Negative) Urine RBC >30 H (0-4) /hpf Urine WBC 10-30 H (0-5) /hpf Ur Epithelial Cells 0-5 (0-5) /lpf Urine Bacteria 1+ H (Negative) Hyaline Casts 0-5 (0-5) /lpf Nasal Influ A H1 2008 PCR (NotDetected) Adenovirus (PCR) (NotDetected) B. pertussis DNA (PCR) (NotDetected) B.parapertussis DNA PCR (NotDetected) C. pneumoniae DNA (PCR) (NotDetected) Coronavirus OC43 (PCR) (NotDetected) Coronavirus HKU1 (PCR) (NotDetected) Coronavirus 229E (PCR) (NotDetected) SARS-CoV-2 (PCR) (NotDetected) Coronavirus NL63 (PCR) (NotDetected) Human Metapneumovir PCR (NotDetected) Influenza Type B (PCR) (NotDetected) M. pneumoniae (PCR) (NotDetected) Parainfluenza 1 (PCR) (NotDetected) Parainfluenza 2 (PCR) (NotDetected) Parainfluenza 3 (PCR) (NotDetected) Parainfluenza 4 (PCR) (NotDetected) RSV (PCR) (NotDetected) Entero/Rhino (PCR) (NotDetected) 12/06/23 12/06/23 12/06/23 Range/Units 19:55 19:44 19:40 WBC 7.68 (4.8-10.8) K/ul RBC 4.21 (4.20-5.40) M/uL Hgb 12.7 (12.0-16.0) g/dl Hct 38.5 (37.0-47.0) % MCV 91.4 (80.0-100.0) fL MCH 30.2 (25.0-34.0) pg MCHC 33.0 (32.0-36.0) g/dL RDW Std Deviation 43.4 (36.4-46.3) fL RDW Coeff of Cher 13.1 (11.5-14.5) % Plt Count 230 (130-400) K/uL MPV 9.2 L (9.4-12.4) fL Immature Gran % (Auto) 0.3 % Neut % (Auto) 84.2 % Lymph % (Auto) 3.8 % Coryell % (Auto) 10.9 % Eos % (Auto) 0.7 % Baso % (Auto) 0.1 % Neut # (Auto) 6.47 (1.40-6.50) K/uL Lymph # (Auto) 0.29 L (1.20-3.40) K/uL Coryell # (Auto) 0.84 H (0.11-0.59) K/uL Eos # (Auto) 0.05 (0.00-0.50) K/uL Baso # (Auto) 0.01 (0.00-0.20) K/uL Immature Gran # (Auto) 0.02 (0.01-0.20) K/uL PT 11.9 (9.0-12.0) Seconds INR 1.1 (0.9-1.1) APTT 31 (21-31) Seconds PTT Ratio 1.1 Sodium 135 L (136-145) mmol/L Potassium 3.3 L (3.5-5.1) mmol/L Chloride 102 (98-107) mmol/L Carbon Dioxide 25 (21-32) mmol/L Anion Gap 8 (3-11) BUN 12 (6-23) mg/dl Creatinine 0.75 (0.6-1.2) mg/dl Est Cr Clr Drug Dosing 132.5 ml/min Est GFR ( Amer) 129.3 ml/min Est GFR (Non-Af Amer) 111.6 ml/min BUN/Creatinine Ratio 16.0 (10-20) Glucose 103 H (70-99(Fasting)) mg/dl Lactate (0.4-2.0) mmol/L Calcium 9.7 (8.6-10.3) mg/dl Magnesium 1.9 (1.7-2.4) mg/dl Total Bilirubin 0.3 (0.2-1.0) mg/dl AST 15 (13-39) U/L ALT 11 (7-52) U/L Alkaline Phosphatase 73 (34-104) U/L Troponin I High Sens < 2.3 (0-14) pg/ml Total Protein 7.7 (6.0-8.3) gm/dl Albumin 4.5 (3.4-5.0) gm/dl Globulin 3.2 (2.5-4.0) gm/dl Albumin/Globulin Ratio 1.4 (0.9-2) Procalcitonin 0.05 (0-0.5) ng/ml HCG, Qual Negative (Negative) Urine Color Urine Appearance (Clear) Urine pH (4.5-7.5) Ur Specific Sanborn (1.000-1.030) Urine Protein (Negative) Urine Glucose (UA) (Negative) Urine Ketones (Negative) Urine Blood (Negative) Urine Nitrite (Negative) Urine Bilirubin (Negative) Urine Urobilinogen (Negative) Ur Leukocyte Esterase (Negative) Urine RBC (0-4) /hpf Urine WBC (0-5) /hpf Ur Epithelial Cells (0-5) /lpf Urine Bacteria (Negative) Hyaline Casts (0-5) /lpf Nasal Influ A H1 2009 PCR DETECTED A* (NotDetected) Adenovirus (PCR) Not Detected (NotDetected) B. pertussis DNA (PCR) Not Detected (NotDetected) B.parapertussis DNA PCR Not Detected (NotDetected) C. pneumoniae DNA (PCR) Not Detected (NotDetected) Coronavirus OC43 (PCR) Not Detected (NotDetected) Coronavirus HKU1 (PCR) Not Detected (NotDetected) Coronavirus 229E (PCR) Not Detected (NotDetected) SARS-CoV-2 (PCR) Not Detected (NotDetected) Coronavirus NL63 (PCR) Not Detected (NotDetected) Human Metapneumovir PCR Not Detected (NotDetected) Influenza Type B (PCR) Not Detected (NotDetected) M. pneumoniae (PCR) Not Detected (NotDetected) Parainfluenza 1 (PCR) Not Detected (NotDetected) Parainfluenza 2 (PCR) Not Detected (NotDetected) Parainfluenza 3 (PCR) Not Detected (NotDetected) Parainfluenza 4 (PCR) Not Detected (NotDetected) RSV (PCR) Not Detected (NotDetected) Entero/Rhino (PCR) Not Detected (NotDetected) Resident Activity Tracking Resident Involvement: Resident Care Provided Care Provided: Adult Hospital Medicine
[2023-12-07] MEDS: OSELTAMIVIR PHOSPHATE 75 MG CAP PO SCH ×2 (12:38→21:31)
[2023-12-07] MEDS: SODIUM CHLORIDE 0.9% 1,000 ML IV SCH ×2 (12:41→21:33)
[2023-12-07] MEDS ORDERED: QUEtiapine FUMARATE 100 MG TABLET PO SCH (21:00)
[2023-12-07] MEDS ORDERED: TAMSULOSIN HCL 0.4 MG CAP PO SCH (21:00)
[2023-12-07] MEDS ORDERED: SERTRALINE HCL 100 MG TABLET PO SCH (21:00)
[2023-12-07] MEDS ORDERED: cefTRIAXone SODIUM 2,000 MG in DEXTROSE 5 % MINI-B 50 ML IV SCH (22:00)
[2023-12-08 06:40] LABS: Basophils # (auto) 0.01 K/uL (0.00-0.20); Basophils % (auto) 0.2 %; Eosinophils # (auto) 0.04 K/uL (0.00-0.50); Hematocrit (blood only) 33.6 % (37.0-47.0); Hemoglobin 10.8 g/dl (12.0-16.0); Lymphocytes # (auto) 1.38 K/uL (1.20-3.40); Lymphocytes % (auto) 33.3 %; Mean Corpuscular Hemoglobin 29.9 pg (25.0-34.0); Mean Corpuscular Hgb Conc 32.1 g/dL (32.0-36.0); Mean Corpuscular Volume 93.1 fL (80.0-100.0); Mean Platelet Volume 9.8 fL (9.4-12.4); Monocytes # (auto) 0.62 K/uL (0.11-0.59); Monocytes % (auto) 14.9 %; Neutrophils % (auto) 50.6 %; Platelet Count 167 K/uL (130-400); RDW Coefficient of Variation 13.5 % (11.5-14.5); RDW Standard Deviation 46.2 fL (36.4-46.3); Red Blood Count 3.61 M/uL (4.20-5.40); White Blood Count 4.15 K/ul (4.8-10.8)
[2023-12-08 07:15] LABS: BUN Creatinine Ratio 11.9 (10-20); Calcium 8.5 mg/dl (8.6-10.3); Creatinine Clr Calc Pharmacy 171.7 ml/min; Est GFR (African American) 148.7 ml/min; Est GFR (Non-African American) 128.3 ml/min; Magnesium 1.9 mg/dl (1.7-2.4)
[2023-12-08 08:45] LABS: Albumin Level 3.7 gm/dl (3.4-5.0); Bilirubin,Total 0.2 mg/dl (0.2-1.0); Total Protein 6.2 gm/dl (6.0-8.3)
[2023-12-08] MEDS: oxyBUTYnin chloride 5 MG TAB PO PRN (09:11)
[2023-12-08] MEDS: buPROPion XL 150 MG TABCR PO SCH (09:11)
[2023-12-08] MEDS: APIXABAN 5 MG TABLET PO SCH (09:11)
[2023-12-08] MEDS: ASPIRIN 81 MG ECTAB PO SCH (09:11)
[2023-12-08] MEDS: MIDODRINE HCL 10 MG TAB PO SCH (09:11)
[2023-12-08] MEDS: guanFACINE HCL 1 MG TAB PO SCH (09:11)
[2023-12-08] MEDS: ARIPiprazole 10 MG TAB PO SCH (09:12)
[2023-12-08] MEDS: OSELTAMIVIR PHOSPHATE 75 MG CAP PO SCH (09:12)
--- NOTE | 2023-12-08 13:24 | Discharge Summary ---
Date of Service December 08, 2023 Admission HPI Per Admitting Provider The patient is a 23-year-old female with a past medical history including Haroldo-Danlos, POTS, congenital duplicated ureters, hydronephrosis status post stent 04/22/2023, recurrent urine tract infections, bladder spasms, iliac artery stent and removal, and bipolar disorder. In the emergency department, patient arrived with a heart rate of 140, and had improvement down to the 120s with the addition of normal saline 1 L bolus by the ED Significant laboratories: Potassium 3.3, magnesium 1.9, BioFire test positive for influenza A H 11/2008 pandemic strain. Urinalysis positive for urinary tract infection Principal Diagnosis influenza Discharge Exam Constitutional: in no acute distress, pleasant and normal affect, intact memory. AOx3. Vitals as above. HEENT: No scleral injection or discharge.Moist mucous membranes. Neck: Supple without lymphadenopathy or thyromegaly. Trachea midline. Lungs: CTAB. No wheezes/rales/rhonchi Cardiac: RRR. No murmurs. No lower extremity edema. 2+ distal peripheral pulses. Abdomen: Soft, nontender, and nondistended.No guarding. No hepatosplenomegaly. MSK: No cyanosis or clubbing. Skin: No rashes, warm, dry. Neurologic: no focal deficits Discharge Data Allergies Allergy/AdvReac Type Severity Reaction Status Date / Time meperidine [From Demerol] Allergy Intermediate HIVES/RASH Verified 12/06/23 22:16 Consultations 12/07/23 02:33 ED Decision to Admit Stat Ordered Studies Laboratory Results WBC 4.15 K/ul (4.8-10.8) L 12/08/23 05:29 RBC 3.61 M/uL (4.20-5.40) L 12/08/23 05:29 Hgb 10.8 g/dl (12.0-16.0) L 12/08/23 05:29 Hct 33.6 % (37.0-47.0) L 12/08/23 05: MCV 93.1 fL (80.0-100.0) 12/08/23 05: MCH 29.9 pg (25.0-34.0) 12/08/23 05:29 MCHC 32.1 g/dL (32.0-36.0) 12/08/23 05:29 RDW Std Deviation 46.2 fL (36.4-46.3) 12/08/23 05: RDW Coeff of Cher 13.5 % (11.5-14.5) 12/08/23 05:29 Plt Count 167 K/uL (130-400) 12/08/23 05:29 MPV 9.8 fL (9.4-12.4) 12/08/23 05:29 Immature Gran % (Auto) 0.0 % 12/08/23 05:29 Neut % (Auto) 50.6 % 12/08/23 05:29 Lymph % (Auto) 33.3 % 12/08/23 05:29 [place] % (Auto) 14.9 % 12/08/23 05:29 Eos % (Auto) 1.0 % 12/08/23 05:29 Baso % (Auto) 0.2 % 12/08/23 05:29 Neut # (Auto) 2.10 K/uL (1.40-6.50) 12/08/23 05:29 Lymph # (Auto) 1.38 K/uL (1.20-3.40) 12/08/23 05:29 [place] # (Auto) 0.62 K/uL (0.11-0.59) H 12/08/23 05:29 Eos # (Auto) 0.04 K/uL (0.00-0.50) 12/08/23 05:29 Baso # (Auto) 0.01 K/uL (0.00-0.20) 12/08/23 05:29 Immature Gran # (Auto) 0.00 K/uL (0.01-0.20) L 12/08/23 05:29 PT 11.9 Seconds (9.0-12.0) 12/06/23 19:55 INR 1.1 (0.9-1.1) 12/06/23 19:55 APTT 31 Seconds (21-31) 12/06/23 19:55 PTT Ratio 1.1 12/06/23 19:55 Sodium 138 mmol/L (136-145) 12/08/23 05:29 Potassium 4.0 mmol/L (3.5-5.1) 12/08/23 05:29 Chloride 110 mmol/L (98-107) H 12/08/23 05:29 Carbon Dioxide 22 mmol/L (21-32) 12/08/23 05:29 Anion Gap 6 (3-11) 12/08/23 05:29 BUN 7 mg/dl (6-23) 12/08/23 05:29 Creatinine 0.59 mg/dl (0.6-1.2) L 12/08/23 05:29 Est Cr Clr Drug Dosing 171.7 ml/min 12/08/23 05:29 Est GFR ( Amer) 148.7 ml/min 12/08/23 05:29 Est GFR (Non-Af Amer) 128.3 ml/min 12/08/23 05:29 BUN/Creatinine Ratio 11.9 (10-20) 12/08/23 05:29 Glucose 84 mg/dl (70-99(Fasting)) 12/08/23 05:29 Lactate 1.1 mmol/L (0.4-2.0) 12/06/23 21:30 Calcium 8.5 mg/dl (8.6-10.3) L 12/08/23 05:29 Magnesium 1.9 mg/dl (1.7-2.4) 12/08/23 05:29 Total Bilirubin 0.2 mg/dl (0.2-1.0) 12/08/23 05:29 Direct Bilirubin 0.0 mg/dl (0-0.2) 12/08/23 05:29 AST 17 U/L (13-39) 12/08/23 05:29 ALT 10 U/L (7-52) 12/08/23 05:29 Alkaline Phosphatase 49 U/L (34-104) 12/08/23 05:29 Troponin I High Sens < 2.3 pg/ml (0-14) 12/06/23 19:55 Total Protein 6.2 gm/dl (6.0-8.3) 12/08/23 05:29 Albumin 3.7 gm/dl (3.4-5.0) 12/08/23 05:29 Globulin 3.2 gm/dl (2.5-4.0) 12/06/23 19:55 Albumin/Globulin Ratio 1.4 (0.9-2) 12/06/23 19:55 Procalcitonin 0.05 ng/ml (0-0.5) 12/06/23 19:55 HCG, Qual Negative (Negative) 12/06/23 19:44 Urine Color [place] 12/06/23 21:38 Urine Appearance Turbid (Clear) A 12/06/23 21:38 Urine pH 6.5 (4.5-7.5) 12/06/23 21:38 Ur Specific [place] 1.026 (1.000-1.030) 12/06/23 21:38 Urine Protein 2+ (Negative) H 12/06/23 21:38 Urine Glucose (UA) Negative (Negative) 12/06/23 21:38 Urine Ketones 1+ (Negative) H 12/06/23 21:38 Urine Blood 3+ (Negative) H 12/06/23 21:38 Urine Nitrite Negative (Negative) 12/06/23 21:38 Urine Bilirubin 1+ (Negative) H 12/06/23 21:38 Urine Urobilinogen Negative (Negative) 12/06/23 21:38 Ur Leukocyte Esterase 1+ (Negative) H 12/06/23 21:38 Urine RBC >30 /hpf (0-4) H 12/06/23 21:38 Urine WBC 10-30 /hpf (0-5) H 12/06/23 21:38 Ur Epithelial Cells 0-5 /lpf (0-5) 12/06/23 21:38 Urine Bacteria 1+ (Negative) H 12/06/23 21:38 Hyaline Casts 0-5 /lpf (0-5) 12/06/23 21:38 Nasal Influ A H1 2008 PCR DETECTED (NotDetected) A* 12/06/23 19:40 Adenovirus (PCR) Not Detected (NotDetected) 12/06/23 19:40 B. pertussis DNA (PCR) Not Detected (NotDetected) 12/06/23 19:40 B.parapertussis DNA PCR Not Detected (NotDetected) 12/06/23 19:40 C. pneumoniae DNA (PCR) Not Detected (NotDetected) 12/06/23 19:40 Coronavirus OC43 (PCR) Not Detected (NotDetected) 12/06/23 19:40 Coronavirus HKU1 (PCR) Not Detected (NotDetected) 12/06/23 19:40 Coronavirus 229E (PCR) Not Detected (NotDetected) 12/06/23 19:40 SARS-CoV-2 (PCR) Not Detected (NotDetected) 12/06/23 19:40 Coronavirus NL63 (PCR) Not Detected (NotDetected) 12/06/23 19:40 Human Metapneumovir PCR Not Detected (NotDetected) 12/06/23 19:40 Influenza Type B (PCR) Not Detected (NotDetected) 12/06/23 19:40 M. pneumoniae (PCR) Not Detected (NotDetected) 12/06/23 19:40 Parainfluenza 1 (PCR) Not Detected (NotDetected) 12/06/23 19:40 Parainfluenza 2 (PCR) Not Detected (NotDetected) 12/06/23 19:40 Parainfluenza 3 (PCR) Not Detected (NotDetected) 12/06/23 19:40 Parainfluenza 4 (PCR) Not Detected (NotDetected) 12/06/23 19:40 RSV (PCR) Not Detected (NotDetected) 12/06/23 19:40 Entero/Rhino (PCR) Not Detected (NotDetected) 12/06/23 19:40 Impressions Chest X-Ray 12/06/23 19:44 XR chest 1V not portable CLINICAL HISTORY: Sepsis TECHNIQUE: Single frontal radiograph of the chest was obtained. Comparison: None available at the time of this dictation. FINDINGS: No lines and tubes are seen. The cardiomediastinal silhouette is normal. The lungs are clear. No evidence of pleural effusion or pneumothorax. IMPRESSION: No acute abnormalities and in particular no radiographic evidence of pneumonia. ACT 112: Negative or not required by law. Electronically signed by: Ricci Langley M.D. 12/07/2023 9:13 AM Hospital Course (1) Influenza A virus subtype H1 2009 pandemic strain present: #Sinus tachycardia/POTS/dehydration/hypokalemia/hypomagnesemia -resolved -potassium and magnesium replenished and now wnl, likely both secondary to losses from initial vomiting -peak heart rate was 140, and did gradually decrease to normal sinus rhythm -cont. Corlanor #Influenza A H1 2009 pandemic strain -cont. Tamiflu 75 mg bid x5 days total -supportive care #Urinary tract infection/history of ureteral stent and hydronephrosis/congenital duplication bilateral ureters -urine culture negative - d/c'd empiric rocephin -cont. tamsulosin -urology consulted -no intervention at this time -f/u urology next week #Iliac artery stent with development of clots -cont. eliquis #Bipolar disorder -cont. guanfacine, bupropion, quetiapine, and sertraline (2) Tachycardia: (3) Hypokalemia: (4) Dehydration: (5) POTS (postural orthostatic tachycardia syndrome): (6) Haroldo-Danlos disease: (7) Bladder spasms: (8) Duplication of bilateral ureters: (9) Recurrent urinary tract infection: (10) Bipolar disorder: Total Time Total Time Spent Total Time Spent (In Minutes): I spent 10 minutes in [id number] time with the patient; 5 minutes reviewing labs and notes; 10 minutes in documentation. Discharge Plan Discharge Items Patient Disposition: Home - Self-Care Reason For Visit: TACHYCARDIA,INFLUENZA A H1 2009,UTI,HYPOKALEMIA Discharge Diagnosis: influenza Activity: Per Instructions section Non-emergency contact: Primary Care Provider and Urologist Call non-emergency contact if: you have any medication questions, your symptoms worsen and your pain is not controlled Follow-up/Referrals: Karie Valdovinos MD [Primary Care Provider] - Diet: Heart Healthy Addtl Attending Provider Instructions: Your symptoms and hospitalization was due to having the flu. You seem to be improving and should continue supportive care at home. He was started on Tamiflu in the hospital and should complete the course at home. This prescription has been sent to your pharmacy for pickup. As discussed earlier your urine culture did not show any active infection so no antibiotics are indicated at this time. You should follow-up with your urologist next week. Pending Studies at Discharge: No Stand-Alone Forms: My Decoholic, Smoking Cessation Medications and DC Order Prescriptions: New oseltamivir [Tamiflu] 75 mg capsule 75 mg PO BID Qty: 7 0RF Rx Instructions: next dose evening of 12/08 Continued aripiprazole [Abilify] 10 mg Tablet 10 mg PO DAILY Eliquis 5 mg Tablet 5 mg PO BID aspirin [Aspir-Low] 81 mg Tablet,Delayed Release (Dr/Ec) 81 mg PO BID quetiapine [Seroquel] 100 mg Tablet 100 mg PO HS sertraline 100 mg Tablet 100 mg PO HS bupropion HCl 450 mg Tablet Extended Release 24 Hr 450 mg PO QAM guanfacine 2 mg Tablet 3 mg PO QAM midodrine 5 mg Tablet 10 mg PO QAM Rx Instructions: do not give last dose of day after 6PM or within 4 hrs of bedtime Corlanor 5 mg Tablet 2.5 mg PO AMPM Rx Instructions: must administer with a meal/food ondansetron 4 mg tablet,disintegrating 4 mg PO Q6H PRN (Reason: nausea and vomiting) Qty: 14 0RF tamsulosin 0.4 mg capsule 0.4 mg PO HS oxybutynin chloride 5 mg tablet 5 mg PO DIRECTED PRN (Reason: Bladder Spasms) Discharge Orders: Discharge Order (Routine); Ordered 12/08/23 Ordered By: Tadeo Guillory Admission Data Admit Date/Time: 12/07/23 02:28 Attending Provider: Kevin Sheehan Admit Provider: Rigoberto Mims Primary Care Provider: Karie Valdovinos Other Providers: Rigoberto Mims Supervising Physician Co-Signing Physician Notes ATTESTATION I also saw the patient and confirmed jolly portions of the history and exam. I agree with the impression and plan in the resident documentation, and as summarized below. Upon our midmorning exam, the patient is sleeping but easily awakens to voice. She notes that she feels much better compared to yesterday. The fever, chills have all resolved. She is tolerating p.o. without nausea or vomiting. Her urine culture demonstrates no growth. We were also able to confirm that the urine culture collected earlier in the week at the [facility] emergency department was also negative (no growth). EXAM 113/71, 76, 18, 36.9, 97% on room air She is pleasant alert. No acute distress appreciated. Heart is regular rate and rhythm Respirations are nonlabored DATA Labs Hemoglobin 10.8, white blood cell count 4.15 Sodium 138, potassium 4.0, BUN 7, creatinine 0.59 Micro Blood cultures drawn 12/06/2023 showed no growth at 24 hours Urine culture collected 12/06/2023 shows suspected normal valdemar IMPRESSION & PLAN Influenza A Improving; hemodynamically stable, no need for supplemental oxygen Complete course of Tamiflu at home Sinus tachycardia, resolved Dehydration, hypokalemia, hypomagnesemia, resolved POTS Tolerating p.o. fluids without difficulty Cautions discussed History of recurrent urine tract infections Status post renal stent placement, right Urology consultation appreciated Urine culture here and urine culture collected during the week at [facility] [place] both negative; antibiotics discontinued Additional per resident documentation Resident Activity Tracking Resident Involvement: Resident Care Provided Care Provided: Adult [facility] Medicine
== END 2023-12-08 15:56 | disposition home or self-care (01) | DRG 866 ==
LOC: ED 19:36 → EDINP 12-07 02:28 → SUATTDRO 12-07 02:28 → 2E 12-07 05:30